=== PATIENT | female | born 1960 | race Caucasian/White ===

== ENCOUNTER → 2016-07-03 | Outpatient (CLI) | payer BC | END | disposition home or self-care (01) | LOC: C.PAPS 11:12 | PROVIDERS: ATTEND Family Medicine | DX: Z12.4 Encounter for screening for malignant neoplasm of cervix (principal) ==

== ENCOUNTER → 2016-09-11 | Outpatient (CLI) | payer BC ==
[2016-09-11 18:33] LABS: BASO % 0.5 %; BASO ABS # 0.02 K/uL (0-0.2); COMPLETE YES; EOS % 1.2 %; HEMATOCRIT 40.4 % (37-47); IG% 0.2 %; LYMPH % 29.8 %; LYMPH ABS # 1.28 K/uL (1.2-3.4); MEAN CELL VOLUME 89.6 fL (80-100); MEAN CORPUSCULAR HEMOGLOBIN 30.2 pg (25-34); MEAN CORPUSCULAR HGB CONC 33.7 g/dl (32-36); MEAN PLATELET VOLUME 10.7 fL (7.4-10.4); MONO % 8.9 %; NEUT % 59.4 %; PLATELET COUNT 177 K/uL (130-400); RED BLOOD COUNT 4.51 M/uL (4.2-5.4); WHITE BLOOD COUNT 4.29 K/uL (4.8-10.8)
[2016-09-11 18:46] LABS: ALB/GLOB RATIO 1.4 (0.9-2); ALT/SGPT 31 U/L (12-78); AST/SGOT 18 U/L (15-37); BLOOD UREA NITROGEN 21 mg/dl (7-18); BUN/CREATININE RATIO 21.8 (10-20); CARBON DIOXIDE 27 mmol/L (21-32); CHLORIDE 107 mmol/L (98-107); CREATININE 0.97 mg/dl (0.60-1.20); GLUCOSE 83 mg/dl (70-99); POTASSIUM 4.1 mmol/L (3.5-5.1); SODIUM 142 mmol/L (136-145)
[2016-09-11 18:57] LABS: ALKALINE PHOSPHATASE 52 U/L (45-117); C-REACTIVE PROTEIN < 0.29 mg/dl (0-0.29); RHEUMATOID FACTOR < 10.0 U/mL (0-15)
[2016-09-11 19:10] LABS: LYME DISEASE AB IGM NEG (NEG)
[2016-09-11 19:13] LABS: LYME DISEASE AB IGG NEG (NEG)
== END | disposition home or self-care (01) ==
LOC: C.LABSPEC 17:07
PROVIDERS: ATTEND Family Medicine
DX: R53.83 Other fatigue (principal); R53.1 Weakness; R42 Dizziness and giddiness; M25.50 Pain in unspecified joint

== ENCOUNTER → 2016-10-09 | Outpatient (CLI) | payer BC ==
[~2016-10-09] MED LIST: GADAVIST IV PRN
--- NOTE | 2016-10-09 16:01 | DIAGNOSTIC IMAGING REPORT ---
BRAIN COMBO CLINICAL HISTORY: DIZZINESS, Weakness, unspecified VISUAL DISTURBANCE COMPARISON STUDY: No previous studies for comparison. TECHNIQUE: Utilizing a 1.5 Peyton magnet and dedicated coil, multiplanar, multiecho imaging of the brain was performed pre and postcontrast administration. IV administration of 7.5 mL of Gadavist contrast was uneventful. FINDINGS: Diffusion-weighted images show no acute ischemic process. Coronal FLAIR images demonstrate a focus of increased signal within the right optic radiations as well as several smaller periventricular foci of increased signal in the prefrontal regions. Diagnostic considerations include chronic small vessel change versus a demyelinating disorder. Postcontrast images are negative for an enhancing lesion. Sella and parasellar regions are unremarkable. IMPRESSION: 1. Nonspecific foci of increased signal within the right optic radiations and to a lesser extent the bilateral frontal regions 2.. Diagnostic considerations include chronic small vessel change versus late onset demyelinating disorder. 3. No acute ischemic process. No abnormal postcontrast enhancement. The above report was generated using voice recognition software. It may contain grammatical, syntax or spelling errors. Electronically signed by: Hernan Ardon M.D. 10/09/2016 4:00 PM Dictated Date/Time: 10/09/2016 3:56 PM
== END | disposition home or self-care (01) ==
LOC: C.MRI 14:44
PROVIDERS: ATTEND Family Medicine
DX: R42 Dizziness and giddiness (principal); R53.1 Weakness; H53.9 Unspecified visual disturbance

== ENCOUNTER → 2016-12-04 | Outpatient (CLI) | payer BC ==
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
== END | disposition home or self-care (01) ==
LOC: C.MRI 18:19
PROVIDERS: ATTEND Psychiatry & Neurology Neurology
DX: G37.9 Demyelinating disease of central nervous system, unspecified (principal); M48.02 Spinal stenosis, cervical region; M25.78 Osteophyte, vertebrae; M43.12 Spondylolisthesis, cervical region

== ENCOUNTER → 2017-07-24 | Outpatient (CLI) | payer OTHER ==
--- NOTE | 2017-07-24 15:54 | DIAGNOSTIC IMAGING REPORT ---
L-SPINE MIN 4 VIEWS ROUTINE CLINICAL HISTORY: Weakness. COMPARISON: None FINDINGS: Alignment of the lumbar spine is anatomic. No fracture or suspicious lesion is identified. Mild multilevel disc space narrowing is noted. There is moderate facet arthrosis. IMPRESSION: 1. No lumbar spine fracture or subluxation. 2. Moderate multilevel facet arthrosis and degenerative disc disease. Electronically signed by: Efrain Jameson M.D. 07/24/2017 3:53 PM Dictated Date/Time: 07/24/2017 3:52 PM
--- NOTE | 2017-07-24 16:12 | DIAGNOSTIC IMAGING REPORT ---
CHEST 2 VIEWS ROUTINE CLINICAL HISTORY: 57 years-old Female presenting with WEAKNESS, SOB. TECHNIQUE: PA and lateral views of the chest were obtained. COMPARISON: 01/03/2017. FINDINGS: Cardiomediastinal silhouette normal. 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 No other focal opacity. No pleural effusion or pneumothorax. Osseous structures normal. Upper abdomen normal. IMPRESSION: 1. No acute cardiopulmonary disease. 2. Old granulomatous disease. Electronically signed by: Wilfrido Rosado M.D. 07/24/2017 4:11 PM Dictated Date/Time: 07/24/2017 4:10 PM
== END | disposition home or self-care (01) ==
LOC: C.RAD 15:21
PROVIDERS: ATTEND Family Medicine
DX: R53.1 Weakness (principal); R06.02 Shortness of breath; D71 Functional disorders of polymorphonuclear neutrophils; M51.36 Other intervertebral disc degeneration, lumbar region

== ENCOUNTER 2017-07-28 03:57 | Emergency (ER) | payer OTHER ==
[~2017-07-28] VITALS: Ht 165.1 cm; Wt 86.5 kg
[2017-07-28 04:03] VITALS: TEMP 37; Ht 165.1 cm; Wt 86.5 kg
[2017-07-28] MEDS ORDERED: HYDROCODONE/ACETAMIN 5/325MG TAB PO ONE (04:30)
[2017-07-28] MEDS ORDERED: HYDR-5688 PO (05:08)
[2017-07-28] MEDS ORDERED: NORCO 5/325MG HOME PACK PO ONE (05:15)
[2017-07-28 05:31] VITALS: BP 129/65; PULSE 67; O2SAT 97
--- NOTE | 2017-07-28 08:02 | DIAGNOSTIC IMAGING REPORT ---
LEFT ANKLE 3 VIEWS HISTORY: Left ankle injury COMPARISON: None. FINDINGS: There is an oblique fracture within the distal left fibula which demonstrates up to 3 mm of lateral displacement. Lateral soft tissue swelling. No dislocation within the left ankle. No radiopaque foreign bodies. IMPRESSION: Slightly displaced distal left fibular fracture. Electronically signed by: Fredi Metz M.D. 07/28/2017 8:01 AM Dictated Date/Time: 07/28/2017 8:00 AM
--- NOTE | 2017-07-28 08:04 | DIAGNOSTIC IMAGING REPORT ---
LEFT KNEE 3 VIEWS HISTORY: fall. left knee injury COMPARISON: None. FINDINGS: There is no fracture or dislocation. Moderate to severe cartilage space narrowing within the medial compartment of the left knee with small marginal osteophytes. This is consistent with osteoarthritis. Mild soft tissue swelling within the lateral aspect of the knee. Small left knee effusion. No radiopaque foreign bodies. IMPRESSION: 1. No fracture or dislocation within the left knee. 2. Small left knee effusion. Electronically signed by: Fredi Metz M.D. 07/28/2017 8:03 AM Dictated Date/Time: 07/28/2017 8:02 AM
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
== END 2017-07-28 05:33 | disposition home or self-care (01) ==
LOC: C.EDB 03:58
DX: S82.832A Other fracture of upper and lower end of left fibula, initial encounter for closed fracture (principal); W01.10XA Fall on same level from slipping, tripping and stumbling with subsequent striking against unspecified object, initial encounter; Z87.891 Personal history of nicotine dependence

== ENCOUNTER → 2017-10-09 | Outpatient (CLI) | payer OTHER ==
[~2017-10-09] MED LIST changes: +HYDR-5688 PO
--- NOTE | 2017-10-09 16:17 | DIAGNOSTIC IMAGING REPORT ---
ADDENDUM Nodular thickening along the dura of the left parietal region demonstrates focal enhancement (series 10 image 21). This lesion measures 8 mm. This is extra-axial and may represent a small meningioma. Attention on follow-up. This is not changed from prior exam. Electronically signed by: Wilfrido Rosado M.D. 10/09/2017 4:21 PM Dictated Date/Time: 10/09/2017 4:20 PM ORIGINAL REPORT BRAIN COMBO FOR MS CLINICAL HISTORY: 57 years-old Female presenting with G37.9 Demyelinating [id number]. TECHNIQUE: Multisequence, multiplanar MR imaging of the brain was performed before and after the administration of intravenous contrast. IV contrast: 9 mL of Gadavist. COMPARISON: 10/09/2016. FINDINGS: Localizer images: Unremarkable. Ventricles and sulci normal in size. Redemonstration of multiple T2/FLAIR hyperintense lesions in the subcortical white matter. One of these lesions is new from prior exam located within the right frontal lobe (series 7 image 7). This new lesion does not demonstrate restricted diffusion or enhancement. The remaining lesions are unchanged in size and appearance. No mass effect or midline shift. No restricted diffusion to suggest acute ischemia. No hemorrhage. No extra-axial fluid collection. T2 skull base flow voids preserved. No abnormal parenchymal enhancement. Bone marrow signal intensity within the calvarium within normal limits. IMPRESSION: 1. Interval development of a new white matter lesion in the right frontal lobe. This is not demonstrate restricted diffusion or enhancement to suggest active demyelination. Remaining previously noted white matter lesions are unchanged from the prior exam. This appearance is nonspecific but could be compatible with the given history of demyelinating disease. 2. No acute intracranial pathology. Electronically signed by: Wilfrido Rosado M.D. 10/09/2017 4:16 PM Dictated Date/Time: 10/09/2017 4:08 PM
== END | disposition home or self-care (01) ==
LOC: C.MRI 14:31
PROVIDERS: ATTEND Psychiatry & Neurology Neurology
DX: G37.9 Demyelinating disease of central nervous system, unspecified (principal); G93.89 Other specified disorders of brain

== ENCOUNTER 2024-03-13 23:19 | Inpatient (IN) ==
[2024-03-14] MEDS: ONDANSETRON INJ 2 MG/ML 2 ML VIAL IV STA (00:01)
[2024-03-14 00:03] LABS: Basophils # (auto) 0.03 K/uL (0.00-0.20); Basophils % (auto) 0.4 %; Eosinophils # (auto) 0.05 K/uL (0.00-0.50); Eosinophils % (auto) 0.6 %; Hematocrit (blood only) 41.3 % (37.0-47.0); Hemoglobin 13.8 g/dl (12.0-16.0); Immature Granulocytes # (auto) 0.04 K/uL (0.01-0.20); Immature Granulocytes % (auto) 0.5 %; Lymphocytes # (auto) 0.87 K/uL (1.20-3.40); Lymphocytes % (auto) 10.3 %; Mean Corpuscular Hemoglobin 29.6 pg (25.0-34.0); Mean Corpuscular Hgb Conc 33.4 g/dL (32.0-36.0); Mean Corpuscular Volume 88.6 fL (80.0-100.0); Mean Platelet Volume 10.1 fL (9.4-12.4); Monocytes # (auto) 0.81 K/uL (0.11-0.59); Monocytes % (auto) 9.6 %; Neutrophils # (auto) 6.63 K/uL (1.40-6.50); Neutrophils % (auto) 78.6 %; Platelet Count 192 K/uL (130-400); RDW Coefficient of Variation 14.2 % (11.5-14.5); RDW Standard Deviation 45.7 fL (36.4-46.3); Red Blood Count 4.66 M/uL (4.20-5.40); White Blood Count 8.43 K/ul (4.8-10.8)
[2024-03-14 00:12] LABS: Alanine Aminotransferase 27 U/L (7-52); Albumin Globulin Ratio 1.6 (0.9-2); Albumin Level 4.5 gm/dl (3.4-5.0); Alkaline Phosphatase 63 U/L (34-104); Anion Gap 8 (3-11); Aspartate Aminotransferase 24 U/L (13-39); BUN Creatinine Ratio 24.7 (10-20); Bilirubin,Total 0.5 mg/dl (0.2-1.0); Blood Urea Nitrogen 24 mg/dl (6-23); Calcium 9.4 mg/dl (8.6-10.3); Carbon Dioxide 27 mmol/L (21-32); Chloride 102 mmol/L (98-107); Globulin 2.9 gm/dl (2.5-4.0); Glucose 121 mg/dl (70-99(Fasting)); Lipase 18 U/L (11-82); Sodium 137 mmol/L (136-145); Total Protein 7.4 gm/dl (6.0-8.3)
[2024-03-14 00:19] LABS: Troponin I High Sensitivity 4.6 pg/ml (0-14)
--- NOTE | 2024-03-14 00:50 | Emergency Department Note ---
Impression & Plan Right-sided chest pain, Pleural effusion on right, Pneumonia ED Provider Note CHIEF COMPLAINT: Chest pain HISTORY OF PRESENT ILLNESS: This 63-year-old female past medical history of hypertension, sleep apnea, demyelinating disorder, cerebrovascular disease, depression who presents to the emergency department with complaints of right upper quadrant abdominal pain through to the back. The patient states she was watching the [employer] football game at approximately 7 PM when the pain began. She states it hurts to move and take a deep breath. She does not feel nauseated. Patient does still have her gallbladder. She was eating chili for dinner this evening. REVIEW OF SYSTEMS: A review of systems was performed with positives and pertinent negatives listed in the history of present illness. 10 systems were reviewed and are otherwise negative. ALLERGIES: see below MEDICATIONS: see below PMH: see below SOCIAL HISTORY: see below DDx: Acute coronary syndrome, cholecystitis, pancreatitis, pulmonary embolus, pneumonia, pleural effusion among others. PHYSICAL EXAM: Vital signs reviewed. General: Well-appearing 63-year-old female, in no significant distress. HEENT: No scleral icterus, PERRLA, neck supple. Moist mucous membranes Cardiovascular: Regular rate and rhythm, no extra sounds. Pulmonary: Clear to auscultation bilaterally, normal work of breathing. Abdomen: Soft, tender to palpation of the right upper quadrant, mild guarding, no rebound nondistended, positive bowel sounds. Musculoskeletal: Atraumatic, no peripheral edema. Neurologic: Patient awake alert and oriented x 3, speech is clear Skin: Warm, dry, no rash EMERGENCY DEPARTMENT COURSE/MDM: This patient was evaluated and appeared to be in no significant distress. IV access was obtained and laboratory work was drawn. The patient was placed on the radiation monitor noted to be normal sinus rhythm. Patient was medicated with IV morphine 4 mg and IV Zofran 4 mg for her discomfort. Chest x-ray was performed and to my interpretation reveals a poor inspiratory effort with no obvious focal lung consolidation. Chest CT was performed due to an elevated D-dimer, this study reveals some groundglass opacities in the bilateral lower lung rm. There is a small right sided pleural effusion. Ultrasound of the right upper quadrant is negative. WBC is within normal limits however the patient's oxygen saturation on room air is 87%. She was placed on 2 L nasal cannula oxygen with improvement. Patient did require second dose of IV morphine due to discomfort. Patient has been medicated with 2 g of IV ceftriaxone and 500 mg of azithromycin. Respiratory bio fire panel is negative. Case has been discussed with the hospitalist, Dr. Pickering who was agreed to evaluate the patient for admission and further management. MONITORING: An order for cardiac monitoring was placed and the patient is noted to be in a normal sinus rhythm at 74 beats per minute. RADIOLOGY: Chest x-ray to my interpretation reveals poor inspiratory effort, no focal lung consolidation or failure otherwise. Chest CT: IMPRESSION: No evidence of pulmonary embolism Mild dilatation of pulmonary trunk ,bilateral main pulmonary artery up to subsegmental level with mild tortuosity - suggest possibility of pulmonary arterial hypertension. Mild diffuse ground-glass haze with superimposed smooth interlobular septal thickening are noted involving the dependent portion of both lower lobes- possibility of pulmonary congestion / could be due to insufficient inspiration. Mild right sided pleural effusion with passive subsegmental collapse of right lower lobe. Small calcified granuloma is noted in lingula. Ultrasound of the right upper quadrant: IMPRESSION: No evidence of cholelithiasis or cholecystitis. EKG: To my interpretation reveals a normal sinus rhythm at 72 bpm. Overall low voltage. QTc of 431. Normal ST segments. No PVC, no PAC. DISPOSITION: Home Past Med/Surg History Problem List (Updated 03/14/24 @ 07:05 by Loyda Oreilly MD) Pneumonia (Acute) Pleural effusion on right (Acute) Right-sided chest pain (Acute) Chest pain Tremor of left hand Abnormal vaginal bleeding in postmenopausal patient Encounter for pre-operative examination Calcified granuloma of lung (Acute) Cerebrovascular disease (Chronic) Depression (Chronic) Excessive daytime sleepiness (Acute) Menopause (Acute) Scarring of cervix (Acute) Snoring (Acute) Unrefreshed by sleep (Acute) History of varicose veins (Acute) Witnessed apneic spells (Acute) Fracture of distal end of left fibula (Acute) Anxiety (Chronic) Cervical disc disease (Chronic) follows with chiropractor Fatigue (Chronic) Meningioma (Chronic) benign brain meningioma - monitoring. Medical History Hypothyroidism Irregular heartbeat "an extra heartbeat" reason for carvedilol Hypertension Temporomandibular joint disorder BILAT CLICKS HAS NEVER LOCKED Varicose vein of leg with laser surgery treatment Depression with anxiety Urinary incontinence H/O urinary tract infection about twice yearly. no recent problems Rheumatic fever FOURTH GRADE-NO HEART ISSUES Arthritis Anemia History of endometrial biopsy Surgical History Hx of cataract extraction History of surgery on extremity BILAT LOWER LEGS-VEIN SURGERY History of colonoscopy H/O arthroscopic knee surgery RIGHT H/O wisdom tooth extraction History of salpingectomy For ectopic H/O dilation and curettage Family History Mother Family history of diabetes mellitus Grandmother (Paternal) Family history of diabetes mellitus Aunt Family history of diabetes mellitus Uncle Family history of diabetes mellitus Sister FHx: ovarian cancer, Onset Age: 53 Other Depression Diabetes Hypertension Myocardial infarction Denies family history of Ovarian cancer Prostate cancer Breast cancer Colorectal cancer Uterine cancer Social History Smoking Status: Former smoker Second Hand Exposure: No; Do You Dip or Chew Tobacco: No; Tobacco Cessation Education Requested by Patient: No Hx Alcohol Use: No Hx Substance Use: No Preferred Language: Chinese Communication Ability: Effective 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 Beliefs That Will Affect Care: None Current Living Situation: Spouse Other Information That Helps Us Care for You: No Feels Safe at Home: Yes Safety Concerns: Feels Safe At This Time Assistive Devices: Glasses Allergies Allergies Allergy/AdvReac Type Severity Reaction Status Date / Time lisinopril AdvReac Mild dry cough Verified 01/31/23 07:41 Home Meds Home Medications Medication Instructions Recorded Confirmed Rohan Mag Zinc Plus D3 1 tab PO DAILY 03/14/24 03/14/24 L.acidoph-L.rhamn-B.bifidum-B.long 1 tab PO DAILY 03/14/24 03/14/24 12.9 mg (2 billion cell) tabletDR bupropion HCl 300 mg 24 hr tablet, 300 mg PO DAILY 03/14/24 03/14/24 extended release carvedilol 3.125 mg tablet 3.125 mg PO BID 03/14/24 03/14/24 hydrochlorothiazide 12.5 mg capsule 12.5 mg PO DAILY 03/14/24 03/14/24 levothyroxine 50 mcg tablet 50 mcg PO DAILY 03/14/24 03/14/24 losartan 100 mg tablet 100 mg PO DAILY 03/14/24 03/14/24 oxybutynin chloride 10 mg 10 mg PO DAILY 03/14/24 03/14/24 tablet,extended release 24 hr Results & Data (ED) Vital Signs Vital Signs - 24 hr 03/13/24 23:20 03/13/24 23:21 03/13/24 23:27 Temperature 36.6 C Temperature Source Temporal Artery Scan Pulse Rate 81 Pulse Rate from SpO2 Sensor Pulse Rhythm Regular Respiratory Rate 16 Respiratory Effort / Characteristics Non-Labored Respiratory Depth Normal Blood Pressure 150/87 H Blood Pressure Mean 108 Pulse Oximetry 94 Oxygen Delivery Method Room Air Room Air Room Air Oxygen Flow Rate Sepsis Recent Fever Within 48 Hours No Sepsis New/Unexplained Change in Mental Status No Sepsis Action Taken by Nursing No Action Required Oxygen Flow Rate - Titration Pulse Oximetry Post Tiitration 03/13/24 23:33 03/13/24 23:35 03/14/24 01:06 Temperature Temperature Source Pulse Rate 74 70 Pulse Rate from SpO2 Sensor Pulse Rhythm Respiratory Rate 29 H Respiratory Effort / Characteristics Respiratory Depth Blood Pressure 151/82 H 123/74 Blood Pressure Mean 115 90 Pulse Oximetry Oxygen Delivery Method Oxygen Flow Rate Sepsis Recent Fever Within 48 Hours Sepsis New/Unexplained Change in Mental Status Sepsis Action Taken by Nursing Oxygen Flow Rate - Titration Pulse Oximetry Post Tiitration 03/14/24 02:27 03/14/24 03:09 03/14/24 03:30 Temperature Temperature Source Pulse Rate 85 70 72 Pulse Rate from SpO2 Sensor 81 71 70 Pulse Rhythm Respiratory Rate 24 18 16 Respiratory Effort / Characteristics Respiratory Depth Blood Pressure 136/73 131/75 130/69 Blood Pressure Mean 94 93 89 Pulse Oximetry 93 94 90 Oxygen Delivery Method Room Air Room Air Oxygen Flow Rate Sepsis Recent Fever Within 48 Hours Sepsis New/Unexplained Change in Mental Status Sepsis Action Taken by Nursing Oxygen Flow Rate - Titration Pulse Oximetry Post Tiitration 03/14/24 03:34 03/14/24 03:34 03/14/24 04:00 Temperature Temperature Source Pulse Rate 71 70 Pulse Rate from SpO2 Sensor 66 Pulse Rhythm Respiratory Rate 21 Respiratory Effort / Characteristics Respiratory Depth Blood Pressure 119/65 Blood Pressure Mean 83 Pulse Oximetry 86 L 90 Oxygen Delivery Method Room Air Nasal Cannula Nasal Cannula Oxygen Flow Rate 3 Sepsis Recent Fever Within 48 Hours Sepsis New/Unexplained Change in Mental Status Sepsis Action Taken by Nursing Oxygen Flow Rate - Titration 2 Pulse Oximetry Post Tiitration 92 03/14/24 04:30 Temperature Temperature Source Pulse Rate 73 Pulse Rate from SpO2 Sensor 73 Pulse Rhythm Respiratory Rate 22 Respiratory Effort / Characteristics Respiratory Depth Blood Pressure 111/64 Blood Pressure Mean 79 Pulse Oximetry 91 Oxygen Delivery Method Nasal Cannula Oxygen Flow Rate 3 Sepsis Recent Fever Within 48 Hours Sepsis New/Unexplained Change in Mental Status Sepsis Action Taken by Nursing Oxygen Flow Rate - Titration Pulse Oximetry Post Tiitration Home Medications Current Medication List: was personally reviewed by me Laboratory Data Attestation: I reviewed the patient's lab results. 03/13/24 23:42 03/13/24 23:42 Lab Results 03/13/24 03/14/24 03/14/24 Range/Units 23:42 02:22 02:23 WBC 8.43 (4.8-10.8) K/ul RBC 4.66 (4.20-5.40) M/uL Hgb 13.8 (12.0-16.0) g/dl Hct 41.3 (37.0-47.0) % MCV 88.6 (80.0-100.0) fL MCH 29.6 (25.0-34.0) pg MCHC 33.4 (32.0-36.0) g/dL RDW Std Deviation 45.7 (36.4-46.3) fL RDW Coeff of Alana 14.2 (11.5-14.5) % Plt Count 192 (130-400) K/uL MPV 10.1 (9.4-12.4) fL Immature Gran % (Auto) 0.5 % Neut % (Auto) 78.6 % Lymph % (Auto) 10.3 % [place] % (Auto) 9.6 % Eos % (Auto) 0.6 % Baso % (Auto) 0.4 % Neut # (Auto) 6.63 H (1.40-6.50) K/uL Lymph # (Auto) 0.87 L (1.20-3.40) K/uL [place] # (Auto) 0.81 H (0.11-0.59) K/uL Eos # (Auto) 0.05 (0.00-0.50) K/uL Baso # (Auto) 0.03 (0.00-0.20) K/uL Immature Gran # (Auto) 0.04 (0.01-0.20) K/uL D-Dimer 990 H* (0-500) ug/L FEU Sodium 137 (136-145) mmol/L Potassium 4.0 (3.5-5.1) mmol/L Chloride 102 (98-107) mmol/L Carbon Dioxide 27 (21-32) mmol/L Anion Gap 8 (3-11) BUN 24 H (6-23) mg/dl Creatinine 0.97 (0.6-1.2) mg/dl Est Cr Clr Drug Dosing Not Reportable eGFR 65.66 BUN/Creatinine Ratio 24.7 H (10-20) Glucose 121 H (70-99(Fasting)) mg/dl Calcium 9.4 (8.6-10.3) mg/dl Total Bilirubin 0.5 (0.2-1.0) mg/dl AST 24 (13-39) U/L ALT 27 (7-52) U/L Alkaline Phosphatase 63 (34-104) U/L Troponin I High Sens 4.6 5.3 (0-14) pg/ml Total Protein 7.4 (6.0-8.3) gm/dl Albumin 4.5 (3.4-5.0) gm/dl Globulin 2.9 (2.5-4.0) gm/dl Albumin/Globulin Ratio 1.6 (0.9-2) Lipase 18 (11-82) U/L Adenovirus (PCR) Not Detected (NotDetected) B. pertussis DNA (PCR) Not Detected (NotDetected) B.parapertussis DNA PCR Not Detected (NotDetected) C. pneumoniae DNA (PCR) Not Detected (NotDetected) Coronavirus OC43 (PCR) Not Detected (NotDetected) Coronavirus HKU1 (PCR) Not Detected (NotDetected) Coronavirus 229E (PCR) Not Detected (NotDetected) SARS-CoV-2 (PCR) Not Detected (NotDetected) Coronavirus NL63 (PCR) Not Detected (NotDetected) Human Metapneumovir PCR Not Detected (NotDetected) Influenza Type A (PCR) Not Detected (NotDetected) Influenza Type B (PCR) Not Detected (NotDetected) M. pneumoniae (PCR) Not Detected (NotDetected) Parainfluenza 1 (PCR) Not Detected (NotDetected) Parainfluenza 2 (PCR) Not Detected (NotDetected) Parainfluenza 3 (PCR) Not Detected (NotDetected) Parainfluenza 4 (PCR) Not Detected (NotDetected) RSV (PCR) Not Detected (NotDetected) Entero/Rhino (PCR) Not Detected (NotDetected) Administered Medications Levothyroxine Sodium (Levothyroxine Sodium 50 Mcg Tablet) 50 mcg PO DAILYBB COOKIE Stop: 04/13/24 06:29 Last Admin: 03/14/24 06:45 Dose: 50 mcg Documented By: JOSE Discontinued Medications Aspirin (Aspirin Chew 324 Mg) 324 mg PO NOW STA Stop: 03/13/24 23:28 Last Admin: 03/14/24 03:26 Dose: Not Given Documented By: BUD Azithromycin (Azithromycin 250 Mg Tab) 500 mg PO NOW ONE Stop: 03/14/24 01:57 Last Admin: 03/14/24 02:17 Dose: 500 mg Documented By: KRISTA Sodium Chloride (Nss) 1,000 mls @ 125 mls/hr IV .Q8H OCOKIE Stop: 03/14/24 23:44 Last Admin: 03/14/24 01:04 Dose: 125 mls/hr Documented By: KRISTA Ceftriaxone Sodium (Rocephin) 2,000 mg in 50 mls @ 100 mls/hr IV NOW STA Stop: 03/14/24 02:25 Last Infusion: 03/14/24 02:50 Dose: Infused Documented By: Admin: 03/14/24 02:17 Dose: 100 mls/hr Documented By: KRISTA Ioversol (Optiray 320 125ml) 118 ml IV ONCE ONE Stop: 03/14/24 01:28 Last Admin: 03/14/24 01:28 Dose: 118 ml Documented By: BRIELLE Ketorolac Tromethamine (Ketorolac Tromethamine 15 Mg/Ml Vial) 10 mg IV NOW ONE Stop: 03/14/24 02:33 Last Admin: 03/14/24 03:38 Dose: 10 mg Documented By: BUD Morphine Sulfate (Morphine Sulfate 4 Mg/Ml 1 Ml Carp\\Vial) 4 mg IV NOW STA Stop: 03/13/24 23:57 Last Admin: 03/14/24 00:00 Dose: 4 mg Documented By: KRISTA Morphine Sulfate (Morphine Sulfate 4 Mg/Ml 1 Ml Carp\\Vial) 4 mg IV NOW STA Stop: 03/14/24 00:52 Last Admin: 03/14/24 01:05 Dose: 4 mg Documented By: KRISTA Ondansetron HCl (Ondansetron Inj 2 Mg/Ml 2 Ml Vial) 4 mg IV NOW STA Stop: 03/13/24 23:57 Last Admin: 03/14/24 00:01 Dose: 4 mg Documented By: KRISTA Imaging Data Radiologist's Impression: Chest X-Ray 03/13/24 23:27 Exam(s): XR CXR 1 VIEW EXAM: XR Chest, 1 View CLINICAL HISTORY: Reason for exam: Chest pain, nonspecific. TECHNIQUE: Frontal view of the chest. COMPARISON: Prior chest x-ray from July 24, 2017. FINDINGS: Lungs: There is mild to moderate peribronchial thickening of the central bronchi with increased interstitial opacities. No consolidation. There are low lung volumes limiting evaluation of the lung bases. There is a 10 mm granuloma in the left lower lobe. Pleural space: Unremarkable. No pneumothorax. Heart: Unremarkable. No cardiomegaly. Mediastinum: Unremarkable. Normal mediastinal contour. Bones/joints: Unremarkable. No acute fracture. IMPRESSION: Findings concerning bronchitis, which may be of infectious or inflammatory allergies. No consolidation or pleural effusion. Limited evaluation of the lung bases. Electronically signed by: Donna Harry MD 03/14/24 01:46 AM Gallbladder Ultrasound 03/13/24 23:39 EXAM: US gallbladder CLINICAL HISTORY: HX: NO PREV. RUQ PAIN. NAUSEA. TECH NOTES: EXAM LIMITED BY INCREASED MIDLINE BOWEL GAS, MOST OF EVAL INTERCOSTAL. PANC: NONVIS DUE TO OVERLYING BOWEL. LIVER: 15.8 cm. WNL SEEN. GB: WALL 1.6 mm. WNL SEEN. PT MEDICATED FOR PAIN, UNABLE TO ASSESS SANDOVAL''S SIGN. CBD: 3.8 mm. RT KID: NO HYDRO. TECHNIQUE: Limited ultrasound of the liver and gallbladder was performed in greyscale and Doppler. Multiple images were obtained in transverse and longitudinal planes. COMPARISON: No prior studies are available for comparison. FINDINGS: Liver: Liver size: 15.8 cm in length. Within normal limits as seen. The liver appears normal in size with homogeneous echotexture. No evidence of focal lesions, cysts, or masses. Hepatic vasculature appears normal. Gallbladder: Gallbladder wall thickness: 1.6 mm, within normal limits as seen. The gallbladder is visualized and appears normal in size and shape. No gallstones, wall thickening, or pericholecystic fluid noted. Unable to assess Sandoval's sign as the patient was medicated for pain. Biliary Tree: Common bile duct diameter: 3.8 mm, within normal limits and not dilated. No evidence of choledocholithiasis or biliary obstruction. Pancreas: Not visualized due to overlying bowel gas. Right Kidney: No evidence of hydronephrosis. IMPRESSION: No evidence of cholelithiasis or cholecystitis. Electronically signed by Melisa Oglesby 03-14-2024 02:45 AM Chest CTA 03/14/24 01:12 EXAM: CT angio chest PE protocol CLINICAL HISTORY: PE 118 CC OPTI 320 TECHNIQUE: Contiguous axial images were obtained from the neck base through the upper abdomen following intravenous administration of iodinated contrast material. Angiographic images were processed, 3D MIP images were acquired for interpretation. If IV contrast material had not been administered, the likelihood of detecting abnormalities relevant to the patient's condition would have been substantially decreased. Coronal and sagittal 3-D MIPs were likewise performed and indicated to increase the sensitivity of detectin diffuse clinically relevant pathology. CT scan was performed according to ALARA (as low as reasonable achievable). COMPARISON: None. FINDINGS: Mild dilatation of pulmonary trunk ,bilateral main pulmonary artery up to subsegmental level with mild tortuosity - suggest possibility of pulmonary arterial hypertension. Mild diffuse ground-glass haze with superimposed smooth interlobular septal thickening are noted involving the dependent portion of both lower lobes- possibility of pulmonary congestion / could be due to insufficient inspiration. Mild right sided pleural effusion with passive subsegmental collapse of right lower lobe. Small calcified granuloma is noted in lingula Adequate contrast bolus without evidence of pulmonary embolism. The central airways are patent. The heart, aorta, and pulmonary arteries are of normal size and configuration. There are no appreciable coronary artery and aortic atherosclerotic calcifications. No pericardial effusion is identified. The thyroid is unremarkable. No mediastinal, hilar, or axillary lymphadenopathy is noted. No suspicious lytic or sclerotic osseous lesions are identified. IMPRESSION: No evidence of pulmonary embolism Mild dilatation of pulmonary trunk ,bilateral main pulmonary artery up to subsegmental level with mild tortuosity - suggest possibility of pulmonary arterial hypertension. Mild diffuse ground-glass haze with superimposed smooth interlobular septal thickening are noted involving the dependent portion of both lower lobes- possibility of pulmonary congestion / could be due to insufficient inspiration. Mild right sided pleural effusion with passive subsegmental collapse of right lower lobe. Small calcified granuloma is noted in lingula. Electronically signed by Elan Cloud 03-14-2024 02:15 AM Discharge Plan Visit Data Chief Complaint: Chest Pain Stated Complaint: CHEST PAIN, SOB ED Provider: Loyda Oreilly Discharge Problem: Right-sided chest pain, Pleural effusion on right, Pneumonia Patient Disposition: Admitted As Inpatient Discharge Instructions Interventions: ED Discharge Assessment Last Done: 03/14/24 05:14 Discharge Problem: Pneumonia Qualifiers: Pneumonia type: due to unspecified organism Laterality: bilateral Lung location: lower lobe of lung Qualified Code(s): J18.9 - Pneumonia, unspecified organism
[2024-03-14 00:56] LABS: D Dimer 990 ug/L FEU (0-500)
[2024-03-14] MEDS: SODIUM CHLORIDE 0.9% 1,000 ML IV SCH (01:04)
[2024-03-14] MEDS: MoRPHine SULFATE 4 MG/ML 1 ML CARP\\VIAL IV STA ×2 (01:05)
[2024-03-14] MEDS: OPTIRAY 320 125ml IV ONE (01:28)
--- NOTE | 2024-03-14 01:47 | XRay Report ---
Exam(s): XR CXR 1 VIEW EXAM: XR Chest, 1 View CLINICAL HISTORY: Reason for exam: Chest pain, nonspecific. TECHNIQUE: Frontal view of the chest. COMPARISON: Prior chest x-ray from July 24, 2017. FINDINGS: Lungs: There is mild to moderate peribronchial thickening of the central bronchi with increased interstitial opacities. No consolidation. There are low lung volumes limiting evaluation of the lung bases. There is a 10 mm granuloma in the left lower lobe. Pleural space: Unremarkable. No pneumothorax. Heart: Unremarkable. No cardiomegaly. Mediastinum: Unremarkable. Normal mediastinal contour. Bones/joints: Unremarkable. No acute fracture. IMPRESSION: Findings concerning bronchitis, which may be of infectious or inflammatory allergies. No consolidation or pleural effusion. Limited evaluation of the lung bases. Electronically signed by: Donna Harry MD 03/14/24 01:46 AM
--- NOTE | 2024-03-14 02:15 | CT Scan Report ---
EXAM: CT angio chest PE protocol CLINICAL HISTORY: PE 118 CC OPTI 320 TECHNIQUE: Contiguous axial images were obtained from the neck base through the upper abdomen following intravenous administration of iodinated contrast material. Angiographic images were processed, 3D MIP images were acquired for interpretation. If IV contrast material had not been administered, the likelihood of detecting abnormalities relevant to the patient's condition would have been substantially decreased. Coronal and sagittal 3-D MIPs were likewise performed and indicated to increase the sensitivity of detectin diffuse clinically relevant pathology. CT scan was performed according to ALARA (as low as reasonable achievable). COMPARISON: None. FINDINGS: Mild dilatation of pulmonary trunk ,bilateral main pulmonary artery up to subsegmental level with mild tortuosity - suggest possibility of pulmonary arterial hypertension. Mild diffuse ground-glass haze with superimposed smooth interlobular septal thickening are noted involving the dependent portion of both lower lobes- possibility of pulmonary congestion / could be due to insufficient inspiration. Mild right sided pleural effusion with passive subsegmental collapse of right lower lobe. Small calcified granuloma is noted in lingula Adequate contrast bolus without evidence of pulmonary embolism. The central airways are patent. The heart, aorta, and pulmonary arteries are of normal size and configuration. There are no appreciable coronary artery and aortic atherosclerotic calcifications. No pericardial effusion is identified. The thyroid is unremarkable. No mediastinal, hilar, or axillary lymphadenopathy is noted. No suspicious lytic or sclerotic osseous lesions are identified. IMPRESSION: No evidence of pulmonary embolism Mild dilatation of pulmonary trunk ,bilateral main pulmonary artery up to subsegmental level with mild tortuosity - suggest possibility of pulmonary arterial hypertension. Mild diffuse ground-glass haze with superimposed smooth interlobular septal thickening are noted involving the dependent portion of both lower lobes- possibility of pulmonary congestion / could be due to insufficient inspiration. Mild right sided pleural effusion with passive subsegmental collapse of right lower lobe. Small calcified granuloma is noted in lingula. Electronically signed by Elan Cloud 03-14-2024 02:15 AM
[2024-03-14] MEDS: cefTRIAXone SODIUM 2,000 MG/50 ML BAG IV STA (02:17)
[2024-03-14] MEDS: AZITHROMYCIN 250 MG TAB PO ONE (02:17)
--- NOTE | 2024-03-14 02:46 | Ultrasound Report ---
EXAM: US gallbladder CLINICAL HISTORY: HX: NO PREV. RUQ PAIN. NAUSEA. TECH NOTES: EXAM LIMITED BY INCREASED MIDLINE BOWEL GAS, MOST OF EVAL INTERCOSTAL. PANC: NONVIS DUE TO OVERLYING BOWEL. LIVER: 15.8 cm. WNL SEEN. GB: WALL 1.6 mm. WNL SEEN. PT MEDICATED FOR PAIN, UNABLE TO ASSESS SANDOVAL''S SIGN. CBD: 3.8 mm. RT KID: NO HYDRO. TECHNIQUE: Limited ultrasound of the liver and gallbladder was performed in greyscale and Doppler. Multiple images were obtained in transverse and longitudinal planes. COMPARISON: No prior studies are available for comparison. FINDINGS: Liver: Liver size: 15.8 cm in length. Within normal limits as seen. The liver appears normal in size with homogeneous echotexture. No evidence of focal lesions, cysts, or masses. Hepatic vasculature appears normal. Gallbladder: Gallbladder wall thickness: 1.6 mm, within normal limits as seen. The gallbladder is visualized and appears normal in size and shape. No gallstones, wall thickening, or pericholecystic fluid noted. Unable to assess Sandoval's sign as the patient was medicated for pain. Biliary Tree: Common bile duct diameter: 3.8 mm, within normal limits and not dilated. No evidence of choledocholithiasis or biliary obstruction. Pancreas: Not visualized due to overlying bowel gas. Right Kidney: No evidence of hydronephrosis. IMPRESSION: No evidence of cholelithiasis or cholecystitis. Electronically signed by Melisa Oglesby 03-14-2024 02:45 AM
[2024-03-14 03:18] LABS: Adenovirus PCR Not Detected (NotDetected); Bordetella parapertussis PCR Not Detected (NotDetected); Bordetella pertussis PCR Not Detected (NotDetected); Chlamydia pneumoniae PCR Not Detected (NotDetected); Coronavirus 229E PCR Not Detected (NotDetected); Coronavirus CoV-2 (COVID19)PCR Not Detected (NotDetected); Coronavirus HKU1 PCR Not Detected (NotDetected); Coronavirus NL63 PCR Not Detected (NotDetected); Coronavirus OC43PCR Not Detected (NotDetected); Human Metapneumovirus PCR Not Detected (NotDetected); Influenza A PCR Not Detected (NotDetected); Influenza B PCR Not Detected (NotDetected); Mycoplasma pneumoniae PCR Not Detected (NotDetected); Parainfluenza Virus 1 PCR Not Detected (NotDetected); Parainfluenza Virus 2 PCR Not Detected (NotDetected); Parainfluenza Virus 3 PCR Not Detected (NotDetected); Parainfluenza Virus 4 PCR Not Detected (NotDetected); Respiratory Syncytial VirusPCR Not Detected (NotDetected); Rhinovirus/Enterovirus PCR Not Detected (NotDetected)
[2024-03-14] MEDS: ASPIRIN CHEW 324 MG PO STA (03:26)
[2024-03-14] MEDS: KETOROLAC TROMETHAMINE 15 MG/ML VIAL IV ONE (03:38)
--- NOTE | 2024-03-14 05:37 | History & Physical Report ---
Date of Service March 14, 2024 Assessment & Plan (1) Chest pain: Plan: 63-year-old female with past med history significant for hypothyroidism, sleep apnea, hypertension, PVCs, obesity, overactive bladder, osteoarthritis, demyelinating disease of central nervous system, meningioma, depression presents with sudden onset of chest pain. Patient states she was watching TV when she noticed sharp pain in the middle of the chest radiating across the right side of the chest into the back. Pain is on and off. Was nauseous. Denies any fevers. No cough. No sweating. Has some dizziness. No headache, no runny nose. No sore throat. No earache. No abdominal pain. Normal bowel and bladder movements. Patient states she is around the grandchild who has been sick with respiratory and stomach flu. In the ER patient was saturating 86% on room air and requiring 3 L oxygen Chest pain Hypoxia requiring 3liters oxygen 2 sets of troponin negative. EKG unremarkable Respiratory BioFire negative CTA chest. No PE. Mild diffuse groundglass haze with superimposed smooth interlobular septal thickening noted involving the dependent portion of both lower lobes possible to pulmonary congestion/icould be insufficent inspiration.. Mild right sided pleural effusion with passive supplemental collapse of the right lower lobe. Possible pneumonia. chf? Empirically started on Rocephin and p.o. azithromycin Follow-up procalcitonin levels Follow serial cardiac enzymes and echo Cardiac consult Close monitor Sleep apnea On CPAP nightly Hypertension On Coreg's, losartan hydrochlorothiazide PVCs On Coreg Hypothyroidism On Synthyroid Overactive bladder On oxybutynin DVT prophylaxis SCDs for now Disposition Telemetry Full code. History of Present Illness Chief Complaint: Chest pain Primary Care Provider: Heather Wasserman MD 63-year-old female with past med history significant for hypothyroidism, sleep apnea, hypertension, PVCs, obesity, overactive bladder, osteoarthritis, demyelinating disease of central nervous system, meningioma, depression presents with sudden onset of chest pain. Patient states she was watching TV when she noticed sharp pain in the middle of the chest radiating across the right side of the chest into the back. Pain is on and off. Was nauseous. Denies any fevers. No cough. No sweating. Has some dizziness. No headache, no runny nose. No sore throat. No earache. No abdominal pain. Normal bowel and bladder movements. Patient states she is around the grandchild who has been sick with respiratory and stomach flu. In the ER patient was saturating 86% on room air and requiring 3 L oxygen Past medical history as mentioned above Past surgical history. Colonoscopy. Ectopic . Social history. . Former smoker. Socially smoker in 2 years. Alcohol occasionally. No drug use. Family history. Father had depression. Hypertension. Mother had diabetes. Heart failure. Hypertension. Sister had ovarian cancer. History of hypertension. Maternal grandfather had heart attack. Paternal grandfather had heart failure. Allergies Allergy/AdvReac Type Severity Reaction Status Date / Time lisinopril AdvReac Mild dry cough Verified 01/31/23 07:41 Home Medications Medication Instructions Recorded Confirmed Type Rohan Mag Zinc Plus D3 1 tab PO DAILY 03/14/24 03/14/24 History L.acidoph-L.rhamn-B.bifidum-B.long 1 tab PO DAILY 03/14/24 03/14/24 History 12.9 mg (2 billion cell) tabletDR bupropion HCl 300 mg 24 hr tablet, 300 mg PO DAILY 03/14/24 03/14/24 History extended release carvedilol 3.125 mg tablet 3.125 mg PO BID 03/14/24 03/14/24 History hydrochlorothiazide 12.5 mg capsule 12.5 mg PO DAILY 03/14/24 03/14/24 History levothyroxine 50 mcg tablet 50 mcg PO DAILY 03/14/24 03/14/24 History losartan 100 mg tablet 100 mg PO DAILY 03/14/24 03/14/24 History oxybutynin chloride 10 mg 10 mg PO DAILY 03/14/24 03/14/24 History tablet,extended release 24 hr Past Med/Surg History Problem List (Updated 03/14/24 @ 07:05 by Loyda Oreilly MD) Pneumonia (Acute) Pleural effusion on right (Acute) Right-sided chest pain (Acute) Chest pain Tremor of left hand Abnormal vaginal bleeding in postmenopausal patient Encounter for pre-operative examination Calcified granuloma of lung (Acute) Cerebrovascular disease (Chronic) Depression (Chronic) Excessive daytime sleepiness (Acute) Menopause (Acute) Scarring of cervix (Acute) Snoring (Acute) Unrefreshed by sleep (Acute) History of varicose veins (Acute) Witnessed apneic spells (Acute) Fracture of distal end of left fibula (Acute) Anxiety (Chronic) Cervical disc disease (Chronic) follows with chiropractor Fatigue (Chronic) Meningioma (Chronic) benign brain meningioma - monitoring. Medical History Hypothyroidism Irregular heartbeat "an extra heartbeat" reason for carvedilol Hypertension Temporomandibular joint disorder BILAT CLICKS HAS NEVER LOCKED Varicose vein of leg with laser surgery treatment Depression with anxiety Urinary incontinence H/O urinary tract infection about twice yearly. no recent problems Rheumatic fever FOURTH GRADE-NO HEART ISSUES Arthritis Anemia History of endometrial biopsy Surgical History Hx of cataract extraction History of surgery on extremity BILAT LOWER LEGS-VEIN SURGERY History of colonoscopy H/O arthroscopic knee surgery RIGHT H/O wisdom tooth extraction History of salpingectomy For ectopic H/O dilation and curettage Family History Mother Family history of diabetes mellitus Grandmother (Paternal) Family history of diabetes mellitus Aunt Family history of diabetes mellitus Uncle Family history of diabetes mellitus Sister FHx: ovarian cancer, Onset Age: 53 Other Depression Diabetes Hypertension Myocardial infarction Denies family history of Ovarian cancer Prostate cancer Breast cancer Colorectal cancer Uterine cancer Social History Smoking Status: Former smoker Second Hand Exposure: No; Do You Dip or Chew Tobacco: No; Tobacco Cessation Education Requested by Patient: No Hx Alcohol Use: No Hx Substance Use: No Preferred Language: Estonian Communication Ability: Effective Superintendent Drivers Required: No Beliefs That Will Affect Care: None Current Living Situation: Spouse Other Information That Helps Us Care for You: No Feels Safe at Home: Yes Safety Concerns: Feels Safe At This Time Assistive Devices: Glasses Review of Systems Review of Systems: All systems reviewed & are unremarkable except as noted in HPI & below Physical Exam 2 Physical Exam: General- Not in distress Head- atraumatic Eyes- PERRL. ENT- oropharynx clear Neck- supple, no JVD, Lungs- clear to auscultation mild bibasilar crackles, no wheezing Heart- regular rate and rhythm; no murmur, no gallop. Abdomen- normal bowel sounds, soft, nontender, no distension Extremities- no pretibial edema, no erythema seen Neuro- alert, oriented PERRL, no facial palsy; no dysarthria; moves extremities Results & Data Results & Data Vital Signs (Past 12 Hours) Vital Signs Temp Pulse Resp BP Pulse Ox O2 Del Method 03/14/24 03:34 71 03/14/24 03:34 86 L Room Air, Nasal Cannula 03/14/24 03:30 72 16 130/69 90 Room Air 03/14/24 03:09 70 18 131/75 94 Room Air 03/14/24 02:27 85 24 136/73 93 03/14/24 01:06 70 29 H 123/74 03/13/24 23:35 151/82 H 03/13/24 23:33 74 03/13/24 23:27 Room Air 03/13/24 23:21 36.6 C 81 16 150/87 H 94 Room Air 03/13/24 23:20 Room Air Diagnostic Findings Laboratory Results WBC 8.43 K/ul (4.8-10.8) 03/13/24 23:42 RBC 4.66 M/uL (4.20-5.40) 03/13/24 23:42 Hgb 13.8 g/dl (12.0-16.0) 03/13/24 23:42 Hct 41.3 % (37.0-47.0) 03/13/24 23:42 MCV 88.6 fL (80.0-100.0) 03/13/24 23:42 MCH 29.6 pg (25.0-34.0) 03/13/24 23:42 MCHC 33.4 g/dL (32.0-36.0) 03/13/24 23:42 RDW Std Deviation 45.7 fL (36.4-46.3) 03/13/24 23:42 RDW Coeff of Alana 14.2 % (11.5-14.5) 03/13/24 23:42 Plt Count 192 K/uL (130-400) 03/13/24 23:42 MPV 10.1 fL (9.4-12.4) 03/13/24 23:42 Immature Gran % (Auto) 0.5 % 03/13/24 23:42 Neut % (Auto) 78.6 % 03/13/24 23:42 Lymph % (Auto) 10.3 % 03/13/24 23:42 Fleming % (Auto) 9.6 % 03/13/24 23:42 Eos % (Auto) 0.6 % 03/13/24 23:42 Baso % (Auto) 0.4 % 03/13/24 23:42 Neut # (Auto) 6.63 K/uL (1.40-6.50) H 03/13/24 23:42 Lymph # (Auto) 0.87 K/uL (1.20-3.40) L 03/13/24 23:42 Fleming # (Auto) 0.81 K/uL (0.11-0.59) H 03/13/24 23:42 Eos # (Auto) 0.05 K/uL (0.00-0.50) 03/13/24 23:42 Baso # (Auto) 0.03 K/uL (0.00-0.20) 03/13/24 23:42 Immature Gran # (Auto) 0.04 K/uL (0.01-0.20) 03/13/24 23:42 D-Dimer 990 ug/L FEU (0-500) H* 03/13/24 23:42 Sodium 137 mmol/L (136-145) 03/13/24 23:42 Potassium 4.0 mmol/L (3.5-5.1) 03/13/24 23:42 Chloride 102 mmol/L (98-107) 03/13/24 23:42 Carbon Dioxide 27 mmol/L (21-32) 03/13/24 23:42 Anion Gap 8 (3-11) 03/13/24 23:42 BUN 24 mg/dl (6-23) H 03/13/24 23:42 Creatinine 0.97 mg/dl (0.6-1.2) 03/13/24 23:42 Est Cr Clr Drug Dosing Not Reportable 03/13/24 23:42 eGFR 65.66 03/13/24 23:42 BUN/Creatinine Ratio 24.7 (10-20) H 03/13/24 23:42 Glucose 121 mg/dl (70-99(Fasting)) H 03/13/24 23:42 Calcium 9.4 mg/dl (8.6-10.3) 03/13/24 23:42 Total Bilirubin 0.5 mg/dl (0.2-1.0) 03/13/24 23:42 AST 24 U/L (13-39) 03/13/24 23:42 ALT 27 U/L (7-52) 03/13/24 23:42 Alkaline Phosphatase 63 U/L (34-104) 03/13/24 23:42 Troponin I High Sens 5.3 pg/ml (0-14) 03/14/24 02:22 Total Protein 7.4 gm/dl (6.0-8.3) 03/13/24 23:42 Albumin 4.5 gm/dl (3.4-5.0) 03/13/24 23:42 Globulin 2.9 gm/dl (2.5-4.0) 03/13/24 23:42 Albumin/Globulin Ratio 1.6 (0.9-2) 03/13/24 23:42 Lipase 18 U/L (11-82) 03/13/24 23:42 Adenovirus (PCR) Not Detected (NotDetected) 03/14/24 02:23 B. pertussis DNA (PCR) Not Detected (NotDetected) 03/14/24 02:23 B.parapertussis DNA PCR Not Detected (NotDetected) 03/14/24 02:23 C. pneumoniae DNA (PCR) Not Detected (NotDetected) 03/14/24 02:23 Coronavirus OC43 (PCR) Not Detected (NotDetected) 03/14/24 02:23 Coronavirus HKU1 (PCR) Not Detected (NotDetected) 03/14/24 02:23 Coronavirus 229E (PCR) Not Detected (NotDetected) 03/14/24 02:23 SARS-CoV-2 (PCR) Not Detected (NotDetected) 03/14/24 02:23 Coronavirus NL63 (PCR) Not Detected (NotDetected) 03/14/24 02:23 Human Metapneumovir PCR Not Detected (NotDetected) 03/14/24 02:23 Influenza Type A (PCR) Not Detected (NotDetected) 03/14/24 02:23 Influenza Type B (PCR) Not Detected (NotDetected) 03/14/24 02:23 M. pneumoniae (PCR) Not Detected (NotDetected) 03/14/24 02:23 Parainfluenza 1 (PCR) Not Detected (NotDetected) 03/14/24 02:23 Parainfluenza 2 (PCR) Not Detected (NotDetected) 03/14/24 02:23 Parainfluenza 3 (PCR) Not Detected (NotDetected) 03/14/24 02:23 Parainfluenza 4 (PCR) Not Detected (NotDetected) 03/14/24 02:23 RSV (PCR) Not Detected (NotDetected) 03/14/24 02:23 Entero/Rhino (PCR) Not Detected (NotDetected) 03/14/24 02:23 Impressions Chest X-Ray 03/13/24 23:27 Exam(s): XR CXR 1 VIEW EXAM: XR Chest, 1 View CLINICAL HISTORY: Reason for exam: Chest pain, nonspecific. TECHNIQUE: Frontal view of the chest. COMPARISON: Prior chest x-ray from July 24, 2017. FINDINGS: Lungs: There is mild to moderate peribronchial thickening of the central bronchi with increased interstitial opacities. No consolidation. There are low lung volumes limiting evaluation of the lung bases. There is a 10 mm granuloma in the left lower lobe. Pleural space: Unremarkable. No pneumothorax. Heart: Unremarkable. No cardiomegaly. Mediastinum: Unremarkable. Normal mediastinal contour. Bones/joints: Unremarkable. No acute fracture. IMPRESSION: Findings concerning bronchitis, which may be of infectious or inflammatory allergies. No consolidation or pleural effusion. Limited evaluation of the lung bases. Electronically signed by: Donna Harry MD 03/14/24 01:46 AM Gallbladder Ultrasound 03/13/24 23:39 EXAM: US gallbladder CLINICAL HISTORY: HX: NO PREV. RUQ PAIN. NAUSEA. TECH NOTES: EXAM LIMITED BY INCREASED MIDLINE BOWEL GAS, MOST OF EVAL INTERCOSTAL. PANC: NONVIS DUE TO OVERLYING BOWEL. LIVER: 15.8 cm. WNL SEEN. GB: WALL 1.6 mm. WNL SEEN. PT MEDICATED FOR PAIN, UNABLE TO ASSESS SANDOVAL''S SIGN. CBD: 3.8 mm. RT KID: NO HYDRO. TECHNIQUE: Limited ultrasound of the liver and gallbladder was performed in greyscale and Doppler. Multiple images were obtained in transverse and longitudinal planes. COMPARISON: No prior studies are available for comparison. FINDINGS: Liver: Liver size: 15.8 cm in length. Within normal limits as seen. The liver appears normal in size with homogeneous echotexture. No evidence of focal lesions, cysts, or masses. Hepatic vasculature appears normal. Gallbladder: Gallbladder wall thickness: 1.6 mm, within normal limits as seen. The gallbladder is visualized and appears normal in size and shape. No gallstones, wall thickening, or pericholecystic fluid noted. Unable to assess Sandoval's sign as the patient was medicated for pain. Biliary Tree: Common bile duct diameter: 3.8 mm, within normal limits and not dilated. No evidence of choledocholithiasis or biliary obstruction. Pancreas: Not visualized due to overlying bowel gas. Right Kidney: No evidence of hydronephrosis. IMPRESSION: No evidence of cholelithiasis or cholecystitis. Electronically signed by Melisa Oglesby 03-14-2024 02:45 AM Chest CTA 03/14/24 01:12 EXAM: CT angio chest PE protocol CLINICAL HISTORY: PE 118 CC OPTI 320 TECHNIQUE: Contiguous axial images were obtained from the neck base through the upper abdomen following intravenous administration of iodinated contrast material. Angiographic images were processed, 3D MIP images were acquired for interpretation. If IV contrast material had not been administered, the likelihood of detecting abnormalities relevant to the patient's condition would have been substantially decreased. Coronal and sagittal 3-D MIPs were likewise performed and indicated to increase the sensitivity of detectin diffuse clinically relevant pathology. CT scan was performed according to ALARA (as low as reasonable achievable). COMPARISON: None. FINDINGS: Mild dilatation of pulmonary trunk ,bilateral main pulmonary artery up to subsegmental level with mild tortuosity - suggest possibility of pulmonary arterial hypertension. Mild diffuse ground-glass haze with superimposed smooth interlobular septal thickening are noted involving the dependent portion of both lower lobes- possibility of pulmonary congestion / could be due to insufficient inspiration. Mild right sided pleural effusion with passive subsegmental collapse of right lower lobe. Small calcified granuloma is noted in lingula Adequate contrast bolus without evidence of pulmonary embolism. The central airways are patent. The heart, aorta, and pulmonary arteries are of normal size and configuration. There are no appreciable coronary artery and aortic atherosclerotic calcifications. No pericardial effusion is identified. The thyroid is unremarkable. No mediastinal, hilar, or axillary lymphadenopathy is noted. No suspicious lytic or sclerotic osseous lesions are identified. IMPRESSION: No evidence of pulmonary embolism Mild dilatation of pulmonary trunk ,bilateral main pulmonary artery up to subsegmental level with mild tortuosity - suggest possibility of pulmonary arterial hypertension. Mild diffuse ground-glass haze with superimposed smooth interlobular septal thickening are noted involving the dependent portion of both lower lobes- possibility of pulmonary congestion / could be due to insufficient inspiration. Mild right sided pleural effusion with passive subsegmental collapse of right lower lobe. Small calcified granuloma is noted in lingula. Electronically signed by Elan Cloud 03-14-2024 02:15 AM ECG Additional Comments: ECG normal sinus rhythm rate of 72. Nonspecific T wave abnormalities. QTc 431 Code Status & VTE Plan VTE Prophylaxis Plan VTE Prophylaxis will be ordered: Yes
[2024-03-14] MEDS ORDERED: ONDANSETRON INJ 2 MG/ML 2 ML VIAL IV PRN (05:43)
[2024-03-14] MEDS ORDERED: LEVALBUTEROL 1.25 MG/3 ML NEB NEB PRN (05:43)
[2024-03-14] MEDS ORDERED: ACETAMINOPHEN 325 MG TAB PO PRN (05:43)
[2024-03-14] MEDS ORDERED: NITROGLYCERIN SL 0.4 MG/TAB TAB SL PRN (05:43)
[2024-03-14] MEDS: LEVOTHYROXINE SODIUM 50 MCG TABLET PO SCH (06:45)
[2024-03-14 07:18] LABS: Basophils # (auto) 0.02 K/uL (0.00-0.20); Basophils % (auto) 0.3 %; Eosinophils # (auto) 0.01 K/uL (0.00-0.50); Eosinophils % (auto) 0.1 %; Hematocrit (blood only) 38.1 % (37.0-47.0); Hemoglobin 12.3 g/dl (12.0-16.0); Immature Granulocytes # (auto) 0.03 K/uL (0.01-0.20); Immature Granulocytes % (auto) 0.4 %; Lymphocytes # (auto) 1.02 K/uL (1.20-3.40); Lymphocytes % (auto) 14.1 %; Mean Corpuscular Hemoglobin 29.6 pg (25.0-34.0); Mean Corpuscular Hgb Conc 32.3 g/dL (32.0-36.0); Mean Corpuscular Volume 91.8 fL (80.0-100.0); Mean Platelet Volume 10.1 fL (9.4-12.4); Monocytes # (auto) 0.88 K/uL (0.11-0.59); Monocytes % (auto) 12.2 %; Neutrophils # (auto) 5.26 K/uL (1.40-6.50); Neutrophils % (auto) 72.9 %; Platelet Count 150 K/uL (130-400); RDW Coefficient of Variation 14.2 % (11.5-14.5); RDW Standard Deviation 48.5 fL (36.4-46.3); Red Blood Count 4.15 M/uL (4.20-5.40); White Blood Count 7.22 K/ul (4.8-10.8)
[2024-03-14 07:30] LABS: BUN Creatinine Ratio 22.8 (10-20); Calcium 8.4 mg/dl (8.6-10.3); Creatinine Clr Calc Pharmacy 72.3 ml/min; Magnesium 1.9 mg/dl (1.7-2.4); Potassium 4.1 mmol/L (3.5-5.1)
[2024-03-14 07:40] LABS: Troponin I High Sensitivity 10.1 pg/ml (0-14)
--- OUTSIDE RECORDS SUMMARY | 2024-03-14 07:55 | External Medical Summary ---
Author Name Unknown Address Unknown Organization [id number] - [address] [place] [id number] Laboratory Report Ordering Provider Test Date Status ENE PEREIRA 02/28/2024 13:50:31 Final Observation Date Value Abnormality Reference (Units ) Status BUN 02/28/2024 13:50:31 15 6-20 (mg/dL) Final Creatinine 02/28/2024 13:50:31 0.9 0.5-1.0 (mg/dL) Final Glomerular filtration rate/1.73 sq M.predicted [Volume Rate/Area] in Serum, Plasma or Blood by Creatinine-based formula (CKD-EPI) 02/28/2024 13:50:31 74 >=60 (mL/min) Final eGFR is calculated based on the CKD-EPI 2020 equation. Sodium 02/28/2024 13:50:31 144 135-146 (m mol/L) Final Potassium 02/28/2024 13:50:31 4.4 3.5-5.1 (m mol/L) Final Cl 02/28/2024 13:50:31 104 98-107 (mm ol/L) Final CO2 02/28/2024 13:50:31 31 22-32 (mmo l/L) Final Anion gap 02/28/2024 13:50:31 9 7-15 (mmol /L) Final Glucose 02/28/2024 13:50:31 79 70-120 (mg /dL) Final Calcium 02/28/2024 13:50:31 9.2 8.4-10.2 ( mg/dL) Final Performing Location [facility] B[facility] 57-[address] 0 - [address] [place] [id number]
--- OUTSIDE RECORDS SUMMARY | 2024-03-14 07:55 | External Medical Summary | Summary of Care ---
Author Name Unknown Organization [facility] [address] [address] Phone [phone] Care Team Providers Care Butcher Helper Name Role Phone Heather Wasserman MD Primary Care Provider Reason for Visit * Reason Onset Date Comments Referral Requested by Specialist 07/27/2023 Encounter Details Date Type Department Care Team (Late st Contact Info) Description 07/27/2023 Telephone Cardiology, [facility] [address] [place] [id number] Dolly Petersen CRNP [address] [place] [id number] Referral Requested by Specialist Allergies Active Allergy Reactions Criticality Noted Date Comments Lisinopril 05/09/2022 cough documented as of this encounter (statuses as of 10/26/2023) Medications Medication Sig Dispensed Refills Start Date End Date Status Probiotic Acidophilus BioBeads Oral Capsule Take 1 Capsule by mouth in the morning and 1 Capsule at noon and 1 Capsule in the evening. Take with meals. Active buPROPion HCl ER (XL) 300 MG Oral Tablet Extended Release 24 Hour (Wellbutrin XL)Indications:Adjust ment disorder with mixed anxiety and depressed mood Take 1 Tablet by mouth in the morning. 90 Tablet 3 06/16/2023 Active Carvedilol 3.125 MG Oral Tablet (Coreg)Indications:HT N, goal below 130/80 Take 1 Tablet by mouth 2 times a day. 180 Tablet 3 06/16/2023 Active Levothyroxine Sodium 50 MCG Oral Tablet (Levoxyl)Indications: Acquired hypothyroidism Take 1 Tablet by mouth in the morning. (at least 30 min prior to breakfast or other meds). 90 Tablet 3 06/16/2023 Active oxyBUTYnin Chloride ER 10 MG Oral Tablet Extended Release 24 HourIndications:OAB (overactive bladder) Take 1 Tablet by mouth in the morning. Do not cut, crush or chew. 90 Tablet 3 06/16/2023 Active Escitalopram Oxalate 20 MG Oral Tablet (Lexapro)Indications: Adjustment disorder with mixed anxiety and depressed mood Take 1 Tablet by mouth in the morning. 90 Tablet 3 06/16/2023 Active NATURAL SUPPLEMENT GOLO -- for weight loss Active Losartan Potassium 100 MG Oral Tablet (Cozaar)Indications:P alpitations,HTN, goal below 130/80 Take 1 Tablet by mouth in the morning. 90 Tablet 3 07/27/2023 Active documented as of this encounter (statuses as of 10/26/2023) Active Problems Problem Noted Date Diagnosed Date Meningioma 10/08/2023 CHINMAY (obstructive sleep apnea) 11/16/2022 OAB (overactive bladder) 11/16/2022 Class 2 severe obesity due t o excess calories with serious comorbidity and body mass index (BMI) of 35.0 to 35.9 in adult 11/16/2022 PVCs (premature ventricular contractions) 2022 Primary osteoarthritis of knees, bilateral 05/15 Recurrent major depressive disorder 03/14/2022 Demyelinating disease of central nervous system 10/31/2021 Acquired hypothyroidism 07/19/2020 HTN, goal below 130/80 07/19/2020 ADJ DISORDER W/DEPRES MOOD 04/27/2004 documented as of this encounter (statuses as of 10/26/2023) Immunizations Name Administration Dates Next Due COVID-19 mRNA, LNP-s, No Pre serve, 2-Dose Series (Apsalar) 03/31/2021,07/12/2020,06/21/2020 Covid-19, Mrna, Lnp-s, Pf, B ivalent, 30 Mcg, IM, 12 yrs and above (Apsalar) 12/28/2021 Seasonal Influenza Virus Vac cine, Unspecified Formulation 12/28/2021,11/26/2019,12/10/2013 Seasonal Influenza, PF, 6 M & above, IM , (FluLaval or Fluzone) 11/16/2022 Seasonal Influenza, Quadriva lent, No Preserve, IM 11/26/2019 Seasonal Influenza, Split, I IV3, With Preserve, Inj 12/10/2013 TDAP (age 10 and older)(Boostrix) 10/25/2020 Zoster Vaccine Recombinant (Shingrix) 04/12/2020 ,12/08/2019 02/09/2020 documented as of this encounter Social History Tobacco Use Types Packs/Day Years Used Date Smoking Tobacco: Never Smokeless Tobacco: Never Alcohol Use Standard Drinks/Week Comments Yes 0 (1 standard drink = 0.6 oz pur e alcohol) occasional PHQ-2 Answer Date Recorded PHQ Adult Total Score 0 11/16/2022 Hunger Vital Sign Answer Date Recorded Within the past 12 months, y ou worried that your food would run out before you got the money to buy more. Never true 11/17/19 23 Within the past 12 months, t he food you bought just didn't last and you didn't have money to get more. Never true 11/16/2022 Childcare Answer Date Recorded Do you feel overwhelmed with taking care of a child, family member or friend? No 11/16/2022 Does your family need help f inding childcare? (Household - for ages 0-17 years) Not on file 11/16/2022 Clothing Answer Date Recorded Have you been unable to get clothing when it was really needed? No 11/16/2022 Is your family able to get c lothes or diapers when needed? (Household - for ages 0-17 years) Not on file 11/16/2022 Personal Safety Answer Date Recorded Do you feel unsafe or have concerns for your saf ety? No 11/16/2022 Do you have concerns for you r family's safety? (Household - for ages 0-17 years) Not on file 11/16/2022 Utilities Answer Date Recorded Do you have trouble paying y our heating, water, or electric bill? No 11/16/2022 Is your family able to pay t he heat, water, or electric bill? (Household - for ages 0-17 years) Not on file 11/16/2022 Does your family have access to good internet? (Household - for ages 0-17 years) Not on file 11/16/2022 Employment Status Answer Date Recorded Are you unemployed or without regular income? No 11/16/2022 Does the household have a re gular source of income? (Household - for ages 0-17 years) Not on file 11/16/2022 Social Connections Answer Date Recorded How often do you feel lonely or isolated from th ose around you? Never 11/16/2022 Financial Resource Strain Answer Date R ecorded Do you have any trouble payi ng for your medications, or do you think you might in the future? No 11/16/2022 Does your family have troubl e paying for medicine? (Household - for ages 0-17 years) Not on file 11/16/2022 Transportation Needs Answer Date Record ed READ ONLY Do you have troubl e getting a ride to medical visits or work? Never True 11/16/2022 Does your family have a hard time getting a ride to doctors visits? (Household - for ages 0-17 years) Not on file 11/16/2022 Has lack of transportation k ept you from medical appointments, meetings, work, or from getting things needed for daily living? Check all that apply. (Adult - for ages 18 years and over) Not on file 11/16/2022 Do you (or your family) have trouble finding or paying for a ride (transportation)? (Household - for ages 0-17 years) Not on file 11/16/2022 Housing Stability Answer Date Recorded Do you currently live in a s helter or have no steady place to sleep at night? No 11/16/2022 READ ONLY Do you think you a re at risk of becoming homeless? No 11/16/2022 Does your family worry about paying for your home or becoming homeless? (Household - for ages 0-17 years) Not on file 0 11/16/2022 Are you homeless or worried that you might be in the future? (Adult - for ages 18 years and over) Not on file Are you (or your family) imer eless or worried that you might be in the future? (Household - for ages 0-17 years) Not on file Food Insecurity Answer Date Recorded Do you need food for this week? No 11/16/2022 Are you able to get enough f ood for your family? (Household - for ages 0-17 years) Not on file 11/16/2022 Does your family need food t his week? (Household - for ages 0-17 years) Not on file 11/16/2022 Do you always have enough fo od for your family? (Household - for ages 0-17 years) Not on file 11/16/2022 Sex and Gender Information Value Date Recorded Sex Assigned at Female 12/08/2019 8:31 AM EDT Gender Identity Female 12/08/2019 8:31 AM EDT Sexual Orientation Straight 12/08/2019 8: 31 AM EDT Job Start Date Occupation Industry Not on file Not on file Not on file documented as of this encounter Miscellaneous Notes * Telephone Encounter - Fredi Tompkins OSA - 07/27/2023 8:17 AM EDT Provider placed a referral for patient, please assist patient to schedule. Thank you. documented in this encounter Plan of Treatment Upcoming Encounters Date Type Department Care Team (Late st Contact Info) Description 03/06/2024 11:40 AM EST Office Visit Sleep Disorders Ctr [facility] [address] [phone] Zee Aggarwal DO [address] [id number] 06/20/2024 8:00 AM EDT Office Visit Family Practice [facility] [address] [phone] Heather Wasserman MD [address] [phone] Health Maintenance Due Date Last Done Comments HIV Screening 1975 HPV/Co-Test 1990 Cologuard 2005 Fecal Occult Blood Test 2005 Sigmoidoscopy 2005 Cervical Cancer Screening 12/28/2022 Pap Smear 12/28/2022 12/29/2019, 12/04, 05/13/2013, Additional history exists Influenza Vaccine (FLU shot) (#1) 2023 11/16/2022, 12/28/2021, 11/26/2019, Additional history exists Depression Monitoring 11/17/2023 11/16/2022 Colonoscopy 12/18/2023 12/17/2018, 05/15/2011 Colorectal Cancer Screening 12/18/2023 TSH 05/22/2024 05/23/2023, 03/05, 10/31/2021, Additional history exists Mammogram 06/12/2024 06/13/2023, 06/03, 06/19/2022, Additional history exists GFR 10/11/2024 10/12/2023, 08/04, 05/23/2023, Additional history exists Lipid Panel 05/02/2026 05/02/2021, 07/2019, 05/08/2011, Additional history exists Albumin/Creatinine Ratio 06/15/2026 06/16/2023, 10/04 Diabetes Screening 08/29/2026 08/30/2023, 0 05/23/2023, 03/14/2022, Additional history exists DTaP,Tdap,and Td Vaccines (2 - Td or Tdap) 10/25/2030 10/25/2020 RETIRED - COLONOSCOPY-EVERY 5 YRS AGES 18-100 Discontinued 12/17/2018, 05/15/2011 Zoster Vaccines Completed 04/12/2020, 12/08/2019 COVID-19 Vaccine Discontinued 12/28/2021, , 07/12/2020, Additional history exists HPV (Gardasil) Vaccine Aged Out No lo nger eligible based on patient's age to complete this topic Hepatitis B Vaccine Aged Out No longe r eligible based on patient's age to complete this topic MENINGOCOCCAL (MENACTRA/MENVEO) Aged Out No longer eligible based on patient's age to complete this topic Pneumococcal Vaccine: Pediatrics (0 to 5 Years) and At-Risk Patients (6 to 64 Years) Aged Out No longer eligible based on patient's age to complete this topic documented as of this encounter Medical Devices Not on filedocumented as of this encounter Care Teams Butcher Helper Relationship Specialty Start Date End Date Heather Wasserman MD [address] [id number] PCP - General Internal Medicine 06/13/23 documented as of this encounter
--- OUTSIDE RECORDS SUMMARY | 2024-03-14 07:55 | External Medical Summary | Summary of Care ---
Author Name Unknown Organization [facility] Address [address] [facility] [address] Phone [phone] Care Team Providers Care Polisher Dial Name Role Phone Heather Wasserman MD Primary Care Provider Reason for Visit * Reason Onset Date Comments Medication Administration 11/29/2023 Flu an d/or Pneumo Inj Follow Up Return sleep. Wi tnessed snoring getting worse. Sleep test 1 1/2 years ago. * Evaluate & Treat - Unlimited Visits (Within 10 days (routine)) - Authorized Specialty Diagnoses / Procedures Referred By Contflora t Referred To Contact Sleep Medicine / Sleep Disorders Diagnoses Palpitations HTN, goal below 130/80 Dolly Petersen CRNP [address] [place] [address] Referral ID Status Reason Start Date Expiration Date Visits Requested Visits Authorized [id number] Authorized Specialty Services Required 07/27/2023 2 2 Encounter Details Date Type Department Care Team (Late st Contact Info) Description 11/29/2023 3:00 PM EDT Office Visit Sleep Disorders Ctr [facility] [address] [place] [phone] Zee Aggarwal DO [address] [place] [phone] Obstructive sleep apnea*; Need for prophylactic vaccination and inoculation against influenza; Hypersomnolence; HTN, goal below 130/80 Allergies Active Allergy Reactions Criticality Noted Date Comments Lisinopril 05/09/2022 cough documented as of this encounter (statuses as of 11/29/2023) Medications Medication Sig Dispensed Refills Start Date End Date Status Probiotic Acidophilus BioBeads Oral Capsule Take 1 Capsule by mouth in the morning and 1 Capsule at noon and 1 Capsule in the evening. Take with meals. Active buPROPion HCl ER (XL) 300 MG Oral Tablet Extended Release 24 Hour (Wellbutrin XL)Indications:Adjus tment disorder with mixed anxiety and depressed mood Take 1 Tablet by mouth in the morning. 90 Tablet 3 06/16/2023 Active Carvedilol 3.125 MG Oral Tablet (Coreg)Indications:H TN, goal below 130/80 Take 1 Tablet by mouth 2 times a day. 180 Tablet 06/16/2023 Active Levothyroxine Sodium 50 MCG Oral Tablet (Levoxyl)Indications :Acquired hypothyroidism Take 1 Tablet by mouth in the morning. (at least 30 min prior to breakfast or other meds). 90 Tablet 3 06/16/2023 Active oxyBUTYnin Chloride ER 10 MG Oral Tablet Extended Release 24 HourIndications:OAB (overactive bladder) Take 1 Tablet by mouth in the morning. Do not cut, crush or chew. 90 Tablet 3 06/16/2023 Active Escitalopram Oxalate 20 MG Oral Tablet (Lexapro)Indications :Adjustment disorder with mixed anxiety and depressed mood Take 1 Tablet by mouth in the morning. 90 Tablet 3 06/16/2023 Active NATURAL SUPPLEMENT GOLO -- for weight loss Active Losartan Potassium 100 MG Oral Tablet (Cozaar)Indications: Palpitations,HTN, goal below 130/80 Take 1 Tablet by mouth in the morning. 90 Tablet 3 07/27/2023 Active Triamcinolone Acetonide 0.1 % External Cream (Aristocort) Apply to sites on arms and legs twice daily x 2-3 weeks 80 g 1 08/03/2023 Active Ondansetron HCl 4 MG Oral Tablet Take 1 Tablet by mouth every 8 hours as needed for Nausea. 15 Tablet 10/08/2023 Active Additional Information Patient not taking.Reported on 11/29/2023 Qiv-Geo-Uidl-D Oral Tablet Take by mouth. Active Weight Loss Daily Multi Oral Tablet Take by mouth. Act abhijeet documented as of this encounter (statuses as of 11/29/2023) Active Problems Problem Noted Date Diagnosed Date [...] as of this encounter (statuses as of 11/29/2023) Immunizations Name Administration Dates Next Due COVID-19 mRNA, LNP-s, No Pre serve, 2-Dose Series ([email or web address]) 03/31/2021,07/12/2020,06/21/2020 Covid-19, Mrna, Lnp-s, Pf, B ivalent, 30 Mcg, IM, 12 yrs and above ([email or web address]) 12/28/2021 Seasonal Influenza Virus Vac cine, Unspecified Formulation 12/28/2021,11/26/2019,12/10/2013 Seasonal Influenza, PF, 6 M & above, IM , (FluLaval or Fluzone) 11/16/2022 Seasonal Influenza, Quadriva lent, No Preserve, IM 11/26/2019 Seasonal Influenza, Trivalen t, (IIV3), PF, (Fluzone) 11/29/2023 Seasonal Influenza, Trivalen t, (IIV3), with Preserv, (Fluzone) 12/10/2013 TDAP (age 10 and older)(Boostrix) 10/25/2020 Zoster Vaccine Recombinant (Shingrix) 04/12/2020 ,12/08/2019 02/09/2020 documented as of this encounter Social History Tobacco Use Types Packs/Day Years Used Date Smoking Tobacco: Former Cigarettes Smokeless Tobacco: Never Tobacco Cessation:Counseling Given: Not Answered Comments:Socially smoker x 2 years. 2 cpd. Alcohol Use Standard Drinks/Week Comments Yes 0 [...] y our heating, water, or electric bill? (Adult - for ages 18 years and over) Not on file 11/17/2023 Is your family able to pay t he heat, water, or electric bill? (Household - for ages 0-17 years) Not on file 11/17/2023 Does your family have access to good internet? (Household - for ages 0-17 years) Not on file 11/17/2023 Employment Status Answer Date Recorded Are you unemployed or without regular income? No 11/16/2022 Does the household have a re gular source of income? (Household - for ages 0-17 years) Not on file 11/16/2022 Social Connections Answer Date Recorded How often do you feel lonely or isolated from those around you? (Adult - for ages 18 years and over) Not on file 11/17/2023 Financial Resource Strain Answer Date R ecorded [...] on file documented as of this encounter Last Filed Vital Signs Vital Sign Reading Time Taken Comments Blood Pressure 128/88 11/29/2023 3:08 PM EDT Pulse 59 11/29/2023 3:08 PM EDT Temperature 36.4 C (97.5 F) 11/29/2023 3:08 PM ED T Respiratory Rate 16 11/29/2023 3:08 PM EDT Oxygen Saturation 97% 11/29/2023 3:08 PM EDT Inhaled Oxygen Concentration - - Weight 98.9 kg (218 lb) 11/29/2023 3:08 PM EDT Height 165.1 cm (5' 5") 11/29/2023 3:08 PM EDT Body Mass Index 36.28 11/29/2023 3:08 PM EDT documented in this encounter Patient Instructions * Patient Instructions* Zee Aggarwal, - 11/29/2023 3:36 PM EDT To use an oral appliance for treatment of obstructive sleep apnea: A list of dental providers in the area who have experience with these devices follows. Please checkwhether/how any of these providers will work with your medical insurance to help cover the device, and check with your medical insurance whether they cover the dental device. Once you make an appointment with one of the dental providers, they may contact our office for any information that they need, such as a copy of your sleep study report. Once you have had a device made and titrated with one of the dental offices, please let me know so that we will follow up with a home sleep study (while using the dental device) to check whether it is doing a good job of treating the sleep apnea. If you are deemed to not be a good candidate for oral appliance therapy to treat sleep apnea, please let my office know. *Vipul Metz DDS, [facility] [address] , [place] [address] [email or web address] *Fredis Manzo DMD, [facility] [address] [place] [address], [place] [address] [email or web address] Christophe Lowry DMD, [facility] [address], [place] [address] [email or web address] Ariela [place], BEN[place], [facility] [address] [address] [email or web address] Or go to: [email or web address] -> then click "Find an AADSMDentist" and search in your location More information about oral appliance therapy can be found here: [email or web address] CPT (billing) code for Oral appliance therapy (dental device): likely E0486; please also confirm with the dental office the code that they use for billing. eXciteOSA works by providing electrical stimulation to the tongue to strengthen those muscles. It is used during the daytime (20 minutes a day for 6 weeks, then reduce to twice a week thereafter). Contraindications would include mouth ulcers/sores, or implanted devices such as a pacemaker. It wouldneed to connect through a cell phone rosana (currently has iPhone and Android compatibility). More information about this therapy can be found at [email or web address]. HCPCS (billing) codes for eXciteOSA: K1028 and K1029 (control unit & mouthpiece). The mouthpiece is replaced every 90 days. documented in this encounter Progress Notes * Zee Aggarwal DO - 11/29/2023 3:05 PM EDT Sleep Medicine Follow-Up HISTORY: Alberta Reid is a 63 year old female seen today for follow up after completing sleep testing. Patient was seen on 06/05/22 with snoring, fatigue. Noted variable sleep schedule. Occasional restless legs sxs. [place] was 15, FOSQ 28. Hx HTN, hypothyroidism, PVCs, depression. In-laboratory PSG results: Date: 06/22/23 TST: 407 minutes AHI/RDI: 5.6/5.7 /hr REM AHI: 23.4 SpO2 niranjan: 81% Time SpO2 <89%: 15.2 min PLMI: 43.9 /hr PLMAI: 12.4 /hr Iron screen normal with ferritin 114 on 05/23/23. tells her snoring is louder. No change in tiredness. Fatigue persists. Still has varying sleep schedule, often based on 's work shifts. Still has occasional RLS sxs. [place] Sleepiness Scale Question 11/29/2023 3:11 PM EDT - Filed by Claudia Flores LPN What is the chance you will doze off in the following situation? Sitting and reading Moderate chance of dozing Watching TV Moderate chance of dozing Sitting inactive in a public place, such as a theater or meeting No chance of dozing As a passenger in a car for an hour without a break Slight chance of dozing Lying down to rest in the afternoon when circumstances permit No chance of dozing When sitting and talking to someone No chance of dozing When sitting quietly after lunch without alcohol No chance of dozing In a car, while stopped for a few minutes in traffic No chance of dozing Score (range: 0 - 24) 5 Additional changes in health in the interim of care: no Patient Active Problem List Diagnosis ADJ DISORDER W/DEPRES MOOD Acquired hypothyroidism HTN, goal below 130/80 Demyelinating disease of central nervous system (HCC) Recurrent major depressive disorder (HCC) PVCs (premature ventricular contractions) Primary osteoarthritis of knees, bilateral CHINMAY (obstructive sleep apnea) OAB (overactive bladder) Class 2 severe obesity due to excess calories with serious comorbidity and body mass index (BMI) of35.0 to 35.9 in adult (HCC) Meningioma (HCC) Current Outpatient Medications Medication Sig Dispense Refill Nhb-Ewx-Cisz-D Oral Tablet Take by mouth. Weight Loss Daily Multi Oral Tablet Take by mouth. Triamcinolone Acetonide 0.1 % External Cream (Aristocort) Apply to sites on arms and legs twice daily x 2-3 weeks 80 g 1 Losartan Potassium 100 MG Oral Tablet (Cozaar) Take 1 Tablet by mouth in the morning. 90 Tablet 3 NATURAL SUPPLEMENT GOLO -- for weight loss buPROPion HCl ER (XL) 300 MG Oral Tablet Extended Release 24 Hour (Wellbutrin XL) Take 1 Tablet by mouth in the morning. 90 Tablet 3 Carvedilol 3.125 MG Oral Tablet (Coreg) Take 1 Tablet by mouth 2 times a day. 180 Tablet 3 Escitalopram Oxalate 20 MG Oral Tablet (Lexapro) Take 1 Tablet by mouth in the morning. 90 Tablet 3 Levothyroxine Sodium 50 MCG Oral Tablet (Levoxyl) Take 1 Tablet by mouth in the morning. (at least 30 min prior to breakfast or other meds). 90 Tablet 3 oxyBUTYnin Chloride ER 10 MG Oral Tablet Extended Release 24 Hour Take 1 Tablet by mouth in the morning. Do not cut, crush or chew. 90 Tablet 3 Probiotic Acidophilus BioBeads Oral Capsule Take 1 Capsule by mouth in the morning and 1 Capsule atnoon and 1 Capsule in the evening. Take with meals. Ondansetron HCl 4 MG Oral Tablet Take 1 Tablet by mouth every 8 hours as needed for Nausea. (Patient not taking: Reported on 11/29/2023) 15 Tablet 0 No current facility-administered medications for this visit. PHYSICAL EXAM: Filed Vitals: 11/29/23 1508 BP: 128/88 Pulse: 59 Resp: 16 Temp: 36.4 C (97.5 F) TempSrc: Tympanic SpO2: 97% Weight: 98.9 kg (218 lb) Height: 1.651 m (5' 5") General: alert, no acute distress Head: NC/AT Lungs: normal respiratory effort Neuro: speech clear and appropriate ASSESSMENT/PLAN: Obstructive sleep apnea - mild by AHI criteria, associated with HTN, persistent fatigue, and increased snoring. - Pathophysiology, short- and long-term complications, and treatment options discussed. - Will begin autotitrating CPAP at 5-20 cmH2O. DME: patient chooses [facility]. CPAP machine, supplies, and mask fitting ordered. - Discussed oral appliance therapy and eXciteOSA as potential alternative treatment options. - Weight loss can improve the severity of sleep apnea or the level of treatment needed. IF we need to update sleep testing due to time elapsed since PSG: Please verify the following with the patient before ordering WatchPAT study: Does patient have Wifi? Yes Does patient have smart phone? Yes Do they have acrylic nails or nail telugu? No: Do they have a pacemaker? No Are they on alphablockers? Please list which med is the alphablocker: no Would have her take evening dose of Coreg at least 3 hours before starting the study. What is the phone number of the cell phone they will be using? [phone] Follow-up with Sleep Medicine in 2 months for first CPAP check. Zee Aggarwal DO * Claudia Flores LPN - 11/29/2023 2:54 PM EDT PRE - ADMINISTRATION DOCUMENTATION Are you experiencing any cold symptoms or fever? No Have you had Guillain-[place] Syndrome (an illness that causes paralysis) within the last 6 weeks? No Have you had the flu shot in the past? YES Have you ever had a reaction to the flu shot? No Claudia Flores LPN, 11/29/2023 2:54 PM Immunization Administration Documentation Time Out Procedure Performed: Yes Patient Identified (Ask Name/Date of ): Yes Does the patient have a fever greater than 101 degrees today? No Patient allergic to latex? No VFC Stock: No Immunization(s) verified: Yes, Immunization Name: Flu, VIS Sheet(s) given: Yes Verified Side and Site: Yes Verified Shot(s) with Parent(s)/Patient: Yes documented in this encounter Nursing Notes * Claudia Floers LPN - 11/29/2023 3:09 PM EDT Chief Complaint Patient presents with Medication Administration Flu and/or Pneumo Inj Follow Up Return sleep. Witnessed snoring getting worse. Sleep test 1 1/2 years ago. [place] Sleepiness Scale Question 11/29/2023 3:11 PM EDT - Filed by Claudia Flores LPN What is the chance you will doze off in the following situation? Sitting and reading Moderate chance of dozing Watching TV Moderate chance of dozing Sitting inactive in a public place, such as a theater or meeting No chance of dozing As a passenger in a car for an hour without a break Slight chance of dozing Lying down to rest in the afternoon when circumstances permit No chance of dozing When sitting and talking to someone No chance of dozing When sitting quietly after lunch without alcohol No chance of dozing In a car, while stopped for a few minutes in traffic No chance of dozing Score (range: 0 - 24) 5 documented in this encounter Plan of Treatment Upcoming Encounters Date Type Department Care Team (Late st Contact Info) Description 02/13/2024 9:00 AM EST Office Visit Cardiology, [facility] [address] [place] [address] Akua Rush CRNP [address] [place] [address] 06/20/2024 8:00 AM EDT Office Visit Family Practice [facility] [address] [address] Heather Wasserman MD [address] [place] [address] 07/17/2024 11:40 AM EDT Office Visit Sleep Disorders Ctr [facility] [address] [place] [phone] Zee Aggarwal DO [address] [place] [address] 09/22/2024 10:00 AM EDT Office Visit Gynecology/Obstetrics [facility] [address] [address] Miley German PA-C [address] [place] [phone] Health Maintenance Due Date Last Done Comments HIV Screening 1975 HPV/Co-Test 1990 Cologuard 2005 Fecal Occult Blood Test 2005 Sigmoidoscopy 2005 Cervical Cancer Screening 12/28/2022 Pap Smear 12/28/2022 12/29/2019, 12/04, 05/13/2013, Additional history exists Depression Monitoring 11/17/2023 11/16/2022 Colonoscopy 12/18/2023 12/17/2018, 05/15/2011 Colorectal Cancer Screening 12/18/2023 TSH 05/22/2024 05/23/2023, 03/05, 10/31/2021, Additional history exists Mammogram 06/12/2024 06/13/2023, 06/03, 06/19/2022, Additional history exists GFR 10/11/2024 10/12/2023, 08/04, 05/23/2023, Additional history exists Lipid Panel 05/02/2026 05/02/2021, 07/2019, 05/08/2011, Additional history exists Albumin/Creatinine Ratio 06/15/2026 06/16/2023, 10/04 Diabetes Screening 08/29/2026 08/30/2023, 0 05/23/2023, 03/14/2022, Additional history exists DTap/Tdap Vaccines (2 - Td or Tdap) 10/25/2030 10/25/2020 RETIRED - COLONOSCOPY-EVERY 5 YRS AGES 18-100 Discontinued 12/17/2018, 05/15/2011 Zoster Vaccines Completed 04/12/2020, 12/08/2019 COVID-19 Vaccine Discontinued 12/28/2021, , 07/12/2020, Additional history exists Influenza Vaccine (FLU shot) Completed 11/29/2023, 11/16/2022, 12/28/2021, Additional history exists HPV (Gardasil) Vaccine Aged [...] Not on filedocumented as of this encounter Visit Diagnoses Diagnosis Obstructive sleep apnea- Primary Obstructive sleep apnea (adult) (pediatric) Need for prophylactic vaccination and inoculation against influenza Hypersomnolence Hypersomnia, unspecified HTN, goal below 130/80 Unspecified essential hypertension documented in this encounter Care Teams Polisher Dial Relationship Specialty Start Date End Date Heather Wasserman MD [address] [place] [phone] PCP - General Internal Medicine 06/13/23 documented as of this encounter
--- OUTSIDE RECORDS SUMMARY | 2024-03-14 07:55 | External Medical Summary | Summary of Care ---
Author Name Unknown Organization [facility] Address [address] [facility] [address] Phone [phone] Care Team Providers Care Fitness Trainer Name Role Phone Heather Wasserman MD Primary Care Provider Reason for Referral * Evaluate & Treat - Unlimited Visits (Within 30 days (routine)) - Authorized Specialty Diagnoses / Procedures Referred By Kaila bauman Referred To Contact Obstetrics/Gynecology / Gynecology Obstetrics Diagnoses Screening for malignant neoplasm of cervix Heather Wasserman MD [address] [place] [address] Referral ID Status Reason Start Date Expiration Date Visits Requested Visits Authorized [id number] Authorized Specialty Services Required 11/01/2023 1 1 Question Answer What condition is the patient being seen for? Annual Annuals should only be placed with a priority of 30 days I acknowledge Referral Priority Within 30 days (routine) Where should this appointment be scheduled? [facility] Reason for Visit * Reason Onset Date Comments Health Maintenance 11/01/2023 Encounter Details Date Type Department Care Team (Late st Contact Info) Description 11/01/[address] [facility] [address] [phone] Heather Wasserman MD [address] [place] [phone] Health Maintenance Allergies Active Allergy Reactions Criticality Noted Date Comments Tammiepril 05/09/2022 cough documented as of this encounter (statuses as of 11/01/2023) Medications Medication Sig Dispensed Refills Start Date [...] needed for Nausea. 15 Tablet 10/08/2023 Active documented as of this encounter (statuses as of 11/01/2023) Active Problems Problem Noted Date Diagnosed Date [...] as of this encounter (statuses as of 11/01/2023) Immunizations Name Administration Dates Next Due COVID-19 mRNA, LNP-s, No Pre serve, 2-Dose Series ([employer]) 03/31/2021,07/12/2020,06/21/2020 Covid-19, Mrna, Lnp-s, Pf, B ivalent, 30 Mcg, IM, 12 yrs and above ([employer]) 12/28/2021 Seasonal Influenza Virus Vac cine, Unspecified Formulation 12/28/2021,11/26/2019,12/10/2013 Seasonal Influenza, PF, 6 M & above, IM , (FluLaval or Fluzone) 11/16/2022 Seasonal Influenza, Quadriva lent, No Preserve, IM 11/26/2019 Seasonal Influenza, Trivalen t, (IIV3), with Preserv, [...] encounter Miscellaneous Notes * Telephone Encounter - Balbina Arellano LPN - 11/01/2023 11:39 AM EDT Care Gaps Comprehensive Care Outreach Last Office/Telemedicine Visit: 10/08/2023 (in office), Visit date not found (telemedicine) Next Office Visit: 06/20/2024 Hemoglobin AIC Results: Lab Results Component Value Date/Time HEMOGLOBIN A1C - ADRIANNAER 5.5 05/12/2013 08:11 AM BP Readings from Last 1 Encounters: 10/08/23 148/90 Reviewed Health Maintenance below: Health Maintenance Topic Date Due HIV Screening Never done Cervical Cancer Screening 12/28/2022 Colorectal Cancer Screening 12/18/2023 Influenza Vaccine (FLU shot) (1) 11/04/2023 Depression Monitoring 11/17/2023 TSH 05/22/2024 Mammogram 06/12/2024 Patient called to schedule her pap Scheduled Care Gap Outreach Action Taken: Spoke to patient documented in this encounter Plan of Treatment Upcoming Encounters Date Type Department Care Team (Late st Contact Info) Description 02/13/2024 9:00 AM EST Office Visit Cardiology, [facility] [address] [address] Akua Rush CRNP [address] [place] [address] [place] [address] 03/06/2024 11:40 AM EST Office Visit Sleep Disorders Ctr [facility] [address] [phone] Zee Aggarwal DO [address] [place] [address] 06/20/2024 8:00 AM EDT Office Visit Family Practice [facility] [address] [address] Heather Wasserman MD [address] [place] [address] 09/22/2024 10:00 AM EDT Office Visit Gynecology/Obstetrics [facility] [address] [address] Miley German PA-C [address] [place] [address] Scheduled Referrals Name Type Priority Associated Diagnoses Orde r Schedule SE[facility] REFERRAL OP Referral Within 30 days (routine) Screening for malignant neoplasm of cervix Ordered: 11/01/2023 Health Maintenance Due Date Last Done Comments [...] as of this encounter Visit Diagnoses Diagnosis Screening for malignant neoplasm of cervix- Primary Screening for malignant neoplasm of the cervix documented in this encounter Care Teams Fitness Trainer Relationship Specialty Start Date End Date Heather Wasserman MD [address] [place] [address] PCP - General Internal Medicine 06/13/23 documented as of this encounter
--- OUTSIDE RECORDS SUMMARY | 2024-03-14 07:55 | External Medical Summary | Summary of Care ---
Author Name Unknown Organization [facility] Address [address] [place] [address] Phone [phone] Care Team Providers Care Food Preservation Scientist Name Role Phone Yokasta Wasserman MD Primary Care Provider Reason for Referral * Evaluate & Treat - Unlimited Visits (Within 30 days (routine)) - Authorized Specialty Diagnoses / Procedures Referred By Kaila bauman Referred To Contact Neurology Diagnoses Dizziness Abnormal neurological exam Yokasta Wasserman MD [address] [place] [address] Referral ID Status Reason Start Date Expiration Date Visits Requested Visits Authorized [id number] Authorized Specialty Services Required 10/13/2023 999 999 Question Answer Referral Priority Within 30 days (routine) Where should this appointment be scheduled? External - [facility] Neurology Is this referral being placed for insurance purposes ONLY No, patient needs appointment [facility] NEUROLOGY REFERRAL QUESTIONS Other Conditions Comments Previous patient of Dr Chau, past ?demyelinating disease. Two recent falls where lost balance for unclear reason. Intermittent dizziness. Abnormal Romberg. * Precert (Within 24 hrs (call dept; emergent)) - Authorized Specialty Diagnoses / Procedures Referred By Kaila bauman Referred To Contact Radiology Diagnoses Dizziness Meningioma (HCC) Procedures CT HEAD/BRAIN W WO CONTRAST Yokasta Wasserman MD [address] [place] [address] Referral ID Status Reason Start Date Expiration Date V isits Requested Visits Authorized [id number] Authorized Precert 10/08/2023 04/05/2024 999 999 Reason for Visit * Reason Onset Date Comments Referral 10/08/2023 Encounter Details Date Type Department Care Team (Late st Contact Info) Description 10/08/[address] [facility] [address] [place] [address] Yokasta Wasserman MD [address] [place] [address] Referral Allergies Active Allergy Reactions Criticality Noted Date Comments Lisinopril 05/09/2022 cough documented as of this encounter (statuses as of 10/13/2023) Medications Medication Sig Dispensed Refills Start Date [...] by mouth in the morning. 90 Tablet 06/16/2023 Active Carvedilol 3.125 MG Oral Tablet (Coreg)Indications:HT N, goal below 130/80 Take 1 Tablet by mouth 2 times a day. 180 Tablet 06/16/2023 Active Levothyroxine Sodium 50 MCG Oral Tablet (Levoxyl)Indications: Acquired hypothyroidism Take 1 Tablet by mouth in the morning. (at least 30 min prior to breakfast or other meds). 90 Tablet 06/16/2023 Active oxyBUTYnin Chloride ER 10 MG Oral Tablet Extended Release 24 HourIndications:OAB (overactive bladder) Take 1 Tablet by mouth in the morning. Do not cut, crush or chew. 90 Tablet 06/16/2023 Active Escitalopram Oxalate 20 MG Oral Tablet (Lexapro)Indications: Adjustment disorder with mixed anxiety and depressed mood Take 1 Tablet by mouth in the morning. 90 Tablet 06/16/2023 Active NATURAL SUPPLEMENT GOLO -- for [...] as of this encounter (statuses as of 10/13/2023) Active Problems Problem Noted Date Diagnosed Date [...] as of this encounter (statuses as of 10/13/2023) Immunizations Name Administration Dates Next Due COVID-19 mRNA, LNP-s, No Pre serve, 2-Dose Series (Meme) 03/31/2021,07/12/2020,06/21/2020 Covid-19, Mrna, Lnp-s, Pf, B ivalent, 30 Mcg, IM, 12 yrs and above (Meme) 12/28/2021 Seasonal Influenza Virus Vac cine, Unspecified [...] encounter Miscellaneous Notes * Telephone Encounter - Sima Aguilar OSA - 10/13/2023 2:32 PM EDT LM for patient to call back and schedule neuro appt * Addendum Note - Yokasta Wasserman MD - 10/13/2023 2:15 PM EDTAddended by: YOKASTA WASSERMAN on: 10/13/2023 02:15 PM Modules accepted: Orders * Telephone Encounter - Yokasta Wasserman MD - 10/13/2023 2:15 PM EDT Neuro referral, [facility]. * Telephone Encounter - Yokasta Wasserman MD - 10/08/2023 2:28 PM EDT signed documented in this encounter Plan of Treatment Upcoming Encounters Date Type Department Care Team (Late st Contact Info) Description 02/06/2024 8:00 AM EST Office Visit Cardiology, [facility] [address] [place] [address] Dolly Petersen CRNP [address] [place] [address] 03/06/2024 11:40 AM EST Office Visit Sleep Disorders Ctr [facility] [address] [place] [phone] Zee Aggarwal DO [address] [place] [address] 06/20/2024 8:00 AM EDT Office Visit Family Practice [facility] [address] [place] [address] Yokasta Wasserman MD [address] [place] [address] Scheduled Orders Name Type Priority Associated Diagnoses Orde r Schedule CT HEAD/BRAIN W WO CONTRAST Medical Imaging STAT Dizziness Meningioma (HCC) Ordered: 10/08/2023 Scheduled Referrals Name Type Priority Associated Diagnoses Orde r Schedule ADULT NEUROLOGY REFERRAL OP Referral Within 30 days (routine) Dizziness Abnormal neurological exam Ordered: 10/13/2023 Health Maintenance Due Date Last Done Comments [...] Additional history exists Lipid Panel 05/02/2026 05/02/2021, 1007/2019, 05/08/2011, Additional history exists Albumin/Creatinine Ratio 06/15/2026 [...] as of this encounter Visit Diagnoses Diagnosis Dizziness- Primary Dizziness and giddiness Meningioma (HCC) Benign neoplasm of cerebral meninges Abnormal neurological exam Other symptoms involving nervous and musculoskeletal systems documented in this encounter Care Teams Food Preservation Scientist Relationship Specialty Start Date End Date Yokasta Wasserman MD [address] [facility] [place] [address] PCP - General Internal Medicine 06/13/23 documented as of this encounter
--- OUTSIDE RECORDS SUMMARY | 2024-03-14 07:55 | External Medical Summary | Summary of Care ---
Author Name Unknown Organization [facility] Address [address] [facility] [place] [address] Phone [phone] Care Team Providers Care Water Resource Consultant Name Role Phone Heather Horvath MD Primary Care Provider Reason for Visit * Reason Comments eRx-Medication Refill Encounter Details Date Type Department Care Team (Late st Contact Info) Description 03/10/2024 Refill Family Practice [facility] [address] [place] [address] Juan Carlos Carmona, DO [address] [place] [address] Acquired hypothyroidism Allergies Active Allergy Reactions Criticality Noted Date Comments Lisinopril 05/09/2022 cough documented as of this encounter (statuses as of 03/11/2024) Medications Probiotic Acidophilus BioBeads Oral Capsule Take 1 Capsule by mouth in the morning and 1 Capsule at noon and 1 Capsule in the evening. Take with meals. Active buPROPion HCl ER (XL) 300 MG Oral Tablet Extended Release 24 Hour (Wellbutrin XL)Indications:Ad justment disorder with mixed anxiety and depressed mood Take 1 Tablet by mouth in the morning. 90 Tablet 3 06/16/19 24 Active Carvedilol 3.125 MG Oral Tablet (Coreg)Indication s:HTN, goal below 130/80 Take 1 Tablet by mouth 2 times a day. 180 Tablet 3 06/16/19 24 Active oxyBUTYnin Chloride ER 10 MG Oral Tablet Extended Release 24 HourIndications:O AB (overactive bladder) Take 1 Tablet by mouth in the morning. Do not cut, crush or chew. 90 Tablet 3 06/16/19 24 Active Escitalopram Oxalate 20 MG Oral Tablet (Lexapro)Indicati ons:Adjustment disorder with mixed anxiety and depressed mood Take 1 Tablet by mouth in the morning. 90 Tablet 3 06/16/19 24 Active NATURAL SUPPLEMENT GOLO -- for weight loss Active Losartan Potassium 100 MG Oral Tablet (Cozaar)Indicatio ns:Palpitations,H TN, goal below 130/80 Take 1 Tablet by mouth in the morning. 90 Tablet 3 07/27/19 24 Active Ondansetron HCl 4 MG Oral Tablet Take 1 Tablet by mouth every 8 hours as needed for Nausea. 15 Tablet 10/08/19 24 Active Iai-Foq-Uncw-D Oral Tablet Take by mouth. Active Triamcinolone Acetonide 0.1 % External Cream (Aristocort) APPLY TO SITES ON ARMS AND LEGS TWICE DAILY X 2-3 WEEKS 80 g 1 01/28/20 24 Active hydroCHLOROthiazi de 12.5 MG Oral Capsule Take 1 Capsule by mouth in the morning. 30 Capsule 3 02/13/20 24 Active Levothyroxine Sodium 50 MCG Oral Tablet (Levoxyl)Indicati ons:Acquired hypothyroidism TAKE 1 TABLET BY MOUTH IN THE MORNING AT LEAST 30 MINUTES PRIOR TO BREAKFAST AND OTHER MEDS 90 Tablet 1 03/11/19 25 Active Levothyroxine Sodium 50 MCG Oral Tablet (Levoxyl)Indicati ons:Acquired hypothyroidism Take 1 Tablet by mouth in the morning. (at least 30 min prior to breakfast or other meds). 90 Tablet 3 06/16/19 24 025 Discontinued documented as of this encounter (statuses as of 03/11/2024) Active Problems Problem Noted Date Diagnosed Date [...] as of this encounter (statuses as of 03/11/2024) Immunizations Name Administration Dates Next Due COVID-19 mRNA, LNP-s, No Pre serve, 2-Dose Series (Thefuture.fm) 03/31/2021,07/12/2020,06/21/2020 Covid-19, Mrna, Lnp-s, Pf, B ivalent, 30 Mcg, IM, 12 yrs and above (Pfizer) 12/28/2021 Seasonal Influenza Vac., MDV , IM, 0.5 mL (Fluzone) 12/10/2013 Seasonal Influenza Virus Vac cine, Unspecified Formulation 12/28/2021,11/26/2019,12/10/2013 Seasonal Influenza, PF, 6 M & above, IM , (FluLaval or Fluzone) 11/16/2022 Seasonal Influenza, Quadriva lent, No Preserve, IM 11/26/2019 Seasonal Influenza, Trivalen t, (IIV3), PF, (Fluzone) 11/29/2023 TDAP (age 10 and older)(Boostrix) 10/25/2020 Zoster Vaccine Recombinant (Shingrix) 04/12/2020 ,12/08/2019 02/09/2020 documented as of this encounter Social History Tobacco Use Types Packs/Day Years Used Date Smoking Tobacco: Former Cigarettes Smokeless Tobacco: Never Comments:Socially smoker x 2 years. 2 cpd. [...] No 11/16/2022 Does the household have a [facility] source [facility] income? 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 Not on file Not on file documented as of this encounter Miscellaneous Notes * Telephone Encounter - Ede Sarmiento formerly [facility] - 03/11/2024 1:35 PM ESTSigned Prescriptions: Disp Refills Levothyroxine Sodium 50 MCG Oral Tablet (L*90 Tab*1 Sig: TAKE 1 TABLET BY MOUTH IN THE MORNING AT LEAST 30 MINUTES PRIOR TO BREAKFAST AND OTHER MEDSAuthorizing Provider: HEATHER HORVATH User: EDE SARMIENTO documented in this encounter Plan of Treatment Upcoming Encounters Date Type Department Care Team (Late st Contact Info) Description 04/16/2024 9:00 AM EST Office Visit Cardiology, [facility] [address] [address] Akua Rush CRNP [address] [place] [address] [place] [address] 06/20/2024 8:00 AM EDT Office Visit Family Practice [facility] [address] [place] [address] Heather Horvath MD [address] [place] [address] 07/17/2024 11:40 AM EDT Office Visit Sleep Disorders Ctr [facility] [address] [place] [phone] Zee Aggarwal DO [address] [place] [address] 09/22/2024 10:00 AM EDT Office Visit Gynecology/Obstetrics [facility] [address] [place] [address] Miley German PA-C [address] [place] [address] Health Maintenance Due Date Last Done Comments HIV Screening 1975 HPV/Co-Test 1990 Cologuard 2005 Fecal Occult Blood Test 2005 Sigmoidoscopy 2005 Pneumococcal Vaccine: 50+ Years (1 of 1 - PCV) 2010 Cervical Cancer Screening 12/28/2022 Pap Smear 12/28/2022 12/29/2019, 12/04, 05/13/2013, Additional history exists Depression Monitoring 11/17/2023 11/16/2022 Colonoscopy 12/18/2023 12/17/2018, 05/15/2011 Colorectal Cancer Screening 12/18/2023 TSH 05/22/2024 05/23/2023, 03/05, 10/31/2021, Additional history exists Mammogram 06/12/2024 06/13/2023, 06/03, 06/19/2022, Additional history exists GFR 02/27/2025 02/28/2024, 080 11/2023, 08/30/2023, Additional history exists Lipid Panel 05/02/2026 05/02/2021, 1007/2019, 05/08/2011, Additional history exists Albumin/Creatinine Ratio 06/15/2026 06/16/2023, 10/04 Diabetes Screening 02/27/2027 02/28/2024, 0 08/30/2023, 05/23/2023, Additional history exists DTap/Tdap Vaccines (2 - [...] as of this encounter Visit Diagnoses Diagnosis Acquired hypothyroidism Unspecified hypothyroidism documented in this encounter Care Teams Water Resource Consultant Relationship Specialty Start Date End Date Heather Horvath MD [address] [place] [address] PCP - General Internal Medicine 06/13/23 documented as of this encounter
--- OUTSIDE RECORDS SUMMARY | 2024-03-14 07:55 | External Medical Summary | Summary of Care ---
Author Name Unknown Organization [facility] Address [address] [facility] [address] Phone [phone] Care Team Providers Care Health And Wellness Instructor Name Role Phone Heather Wasserman MD Primary Care Provider Reason for Visit * Reason Onset Date Comments Referral Requested by Specialist 07/27/2023 Encounter Details Date Type Department Care Team (Late st Contact Info) Description 07/27/2023 Telephone Cardiology, [facility] [address] [place] [address] Dolly Petersen CRNP [address] [place] [address] Referral Requested by Specialist Allergies Active Allergy [...] mRNA, LNP-s, No Pre serve, 2-Dose Series (Reviewspotter) 03/31/2021,07/12/2020,06/21/2020 Covid-19, Mrna, Lnp-s, Pf, B ivalent, 30 Mcg, IM, 12 yrs and above (Reviewspotter) 12/28/2021 Seasonal Influenza Virus Vac cine, Unspecified [...] encounter Miscellaneous Notes * Telephone Encounter - Danielle Nix OSA - 07/31/2023 10:04 AM EDT Called patient, left message to return call. Please offer first available. * Telephone Encounter - Fredi Tompkins OSA - 07/27/2023 8:18 AM EDT Provider placed a referral for patient, please assist patient to schedule, thank you. documented in this encounter Plan of Treatment Upcoming Encounters Date Type Department Care Team (Late st Contact Info) Description 03/06/2024 11:40 AM EST Office Visit Sleep Disorders Ctr [facility] [address] [place] [address] [phone] Zee Aggarwal, [address] [place] [address] 06/20/2024 8:00 AM EDT Office Visit Family Practice [facility] [address] [place] [address] Heather Wasserman MD [address] [place] [address] Health Maintenance Due Date Last Done Comments [...] filedocumented as of this encounter Care Teams Health And Wellness Instructor Relationship Specialty Start Date End Date Heather Wasserman MD [address] [place] [address] PCP - General Internal Medicine 06/13/23 documented as of this encounter
--- OUTSIDE RECORDS SUMMARY | 2024-03-14 07:55 | External Medical Summary | Summary of Care ---
Author Name Unknown Organization [facility] Address [address] [facility] [address] Phone [phone] Care Team Providers Care Wash Operator Name Role Phone Heather Wasserman MD Primary Care Provider Reason for Visit * Reason Onset Date Comments Test Results 02/28/2024 Encounter Details Date Type Department Care Team (Late st Contact Info) Description 02/28/2024 Telephone Cardiology, [facility] [address] [facility] [place] [address] Akua Rush CRNP [address] [facility] [place] [address] Test Results Allergies Active Allergy Reactions Criticality Noted Date Comments Lisinopril 05/09/2022 cough documented as of this encounter (statuses as of 02/28/2024) Medications Probiotic Acidophilus BioBeads Oral Capsule Take 1 Capsule by mouth in the morning and 1 Capsule at noon and 1 Capsule in the evening. Take with meals. Active buPROPion HCl ER (XL) 300 MG Oral Tablet Extended Release 24 Hour (Wellbutrin XL)Indications:Adj ustment disorder with mixed anxiety and depressed mood Take 1 Tablet by mouth in the morning. 90 Tablet 3 4 Active Carvedilol 3.125 MG Oral Tablet (Coreg)Indications :HTN, goal below 130/80 Take 1 Tablet by mouth 2 times a day. 180 Tablet 3 4 Active Levothyroxine Sodium 50 MCG Oral Tablet (Levoxyl)Indicatio ns:Acquired hypothyroidism Take 1 Tablet by mouth in the morning. (at least 30 min prior to breakfast or other meds). 90 Tablet 3 4 Active oxyBUTYnin Chloride ER 10 MG Oral Tablet Extended Release 24 HourIndications:OA B (overactive bladder) Take 1 Tablet by mouth in the morning. Do not cut, crush or chew. 90 Tablet 3 4 Active Escitalopram Oxalate 20 MG Oral Tablet (Lexapro)Indicatio ns:Adjustment disorder with mixed anxiety and depressed mood Take 1 Tablet by mouth in the morning. 90 Tablet 3 4 Active NATURAL SUPPLEMENT GOLO -- for weight loss Active Losartan Potassium 100 MG Oral Tablet (Cozaar)Indication s:Palpitations,HTN , goal below 130/80 Take 1 Tablet by mouth in the morning. 90 Tablet 3 4 Active Ondansetron HCl 4 MG Oral Tablet Take 1 Tablet by mouth every 8 hours as needed for Nausea. 15 Tablet 4 Active Ioq-Xso-Tbjn-D Oral Tablet Take by mouth. Active Triamcinolone Acetonide 0.1 % External Cream (Aristocort) APPLY TO SITES ON ARMS AND LEGS TWICE DAILY X 2-3 WEEKS 80 g 1 4 Active hydroCHLOROthiazid e 12.5 MG Oral Capsule Take 1 Capsule by mouth in the morning. 30 Capsule 3 4 Active documented as of this encounter (statuses as of 02/28/2024) Active Problems Problem Noted Date Diagnosed Date [...] as of this encounter (statuses as of 02/28/2024) Immunizations Name Administration Dates Next Due COVID-19 mRNA, LNP-s, No Pre serve, 2-Dose Series (VetCentric) 03/31/2021,07/12/2020,06/21/2020 Covid-19, Mrna, Lnp-s, Pf, B ivalent, [...] 11/16/2022 Does the household have a re lar source of income? 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 ----- Message from Akua Rush sent at 02/28/2024 4:00 PM EST ----- Kidney function and electrolytes stable on recent labs. No changes necessary at this time. Please bring blood pressure readings to next follow-up visit. documented in this encounter Plan of Treatment Upcoming Encounters Date Type Department Care Team (Late st Contact Info) Description 04/16/2024 9:00 AM EST Office Visit Cardiology, [facility] [address] [place] [address] Akua Rush CRNP [address] [place] [address] 06/20/2024 8:00 AM EDT Office Visit Family Practice [facility] [address] [place] [address] Heather Wasserman MD [address] [place] [address] 07/17/2024 11:40 AM EDT Office Visit Sleep Disorders Ctr [facility] [address] [place] [phone] Zee Aggarwal DO [address] [place] [address] 09/22/2024 10:00 AM EDT Office Visit Gynecology/Obstetrics [facility] [address] [place] [address] Miley German PA-C [address] [place] [address] Health Maintenance Due Date Last Done Comments [...] Additional history exists Lipid Panel 05/02/2026 05/02/2021, 100 07/2019, 05/08/2011, Additional history exists Albumin/Creatinine Ratio 06/15/2026 06/16/2023, 082 11/2021 Diabetes Screening 02/27/2027 02/28/2024, 0 08/30/2023, 05/23/2023, [...] filedocumented as of this encounter Care Teams Wash Operator Relationship Specialty Start Date End Date Heather Wasserman MD [address] [place] [address] PCP - General Internal Medicine 06/13/23 documented as of this encounter
--- OUTSIDE RECORDS SUMMARY | 2024-03-14 07:55 | External Medical Summary | Summary of Care ---
Author Name Unknown Organization [facility] Address [address] [facility] [address] Phone [phone] Care Team Providers Care Tandem Mill Roller Name Role Phone Heather Wasserman MD Primary Care Provider Reason for Visit * Reason Comments Outpatient Testing Encounter Details Date Type Department Care Team (Late st Contact Info) Description 02/28/2024 1:50 PM EST Laboratory [facility], [facility] [address] [facility] [phone] [facility] 132 [place] [address] HTN, goal below 130/80 Allergies Active Allergy [...] needed for Nausea. 15 Tablet 4 Active Fct-Enu-Vglj-D Oral Tablet Take by mouth. 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 Not on file documented as of this encounter Plan of Treatment Upcoming Encounters Date Type Department Care Team (Late st Contact Info) Description 04/16/2024 9:00 AM EST Office Visit Cardiology, [facility] [address] [place] [address] Akua Rush CRNP [address] [place] [address] [place] [address] 06/20/2024 8:00 AM EDT Office Visit Family Practice [facility] [address] [place] [address] Heather Wasserman MD [address] [place] [address] 07/17/2024 11:40 AM EDT [facility] [address] [place] [phone] Zee Aggarwal DO [address] [place] [address] 09/22/2024 10:00 AM EDT Office Visit Gynecology/Obstetrics [facility] [address] [place] [address] Miley German PA-C [address] [place] [address] Pending Results Name Type Priority Associated Diagnoses Date /Time BASIC METABOLIC PANEL Lab Routine HTN, goal below 130/80 02/28/2024 1:50 PM EST Health Maintenance Due Date Last Done Comments [...] as of this encounter Visit Diagnoses Diagnosis HTN, goal below 130/80 Unspecified essential hypertension documented in this encounter Care Teams Tandem Mill Roller Relationship Specialty Start Date End Date Heather Wasserman MD [address] [place] [address] PCP - General Internal Medicine 06/13/23 documented as of this encounter
--- OUTSIDE RECORDS SUMMARY | 2024-03-14 07:55 | External Medical Summary | Summary of Care ---
Author Name Unknown Organization [facility] Address [address] [facility] [address] Phone [phone] Care Team Providers Care Architecture Department Chair Name Role Phone Heather Wasserman MD Primary Care Provider Reason for Visit * Reason Comments Follow Up Encounter Details Date Type Department Care Team (Late st Contact Info) Description 02/13/2024 9:00 AM EST Office Visit Cardiology, [facility] [address] [facility] [place] [address] Akua Rush CRNP [address] [facility] [place] [address] Palpitations*; HOANG (dyspnea on exertion); HTN, goal below 130/80 Allergies Active Allergy Reactions Criticality Noted Date Comments Lisinopril 05/09/2022 cough documented as of this encounter (statuses as of 02/13/2024) Medications Probiotic Acidophilus BioBeads Oral Capsule Take [...] 24 Active Carvedilol 3.125 MG Oral Tablet (Coreg)Indications :HTN, goal below 130/80 Take 1 Tablet by mouth 2 times a day. 180 Tablet 3 06/16/19 24 Active Levothyroxine Sodium 50 MCG Oral Tablet (Levoxyl)Indicatio ns:Acquired hypothyroidism Take 1 Tablet by mouth in the morning. (at least 30 min prior to breakfast or other meds). 90 Tablet 3 06/16/19 24 Active oxyBUTYnin Chloride [...] for Nausea. 15 Tablet 10/08/19 24 Active Fdq-Vya-Kyxi-D Oral Tablet Take by mouth. Active Triamcinolone Acetonide 0.1 % External Cream (Aristocort) APPLY TO SITES ON ARMS AND LEGS TWICE DAILY X 2-3 WEEKS 80 g 1 01/28/20 24 Active hydroCHLOROthiazid e 12.5 MG Oral Capsule Take 1 Capsule by mouth in the morning. 30 Capsule 3 02/13/20 24 Active Weight Loss Daily Multi Oral Tablet Take by mouth. 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 Repeat bloodwork to check kidney function at [facility] in 1 week. Check blood pressure at different times throughout the day with cuff at home for next 2 weeks and bring blood pressure readings to next follow-up visit. documented in this encounter Nursing Notes * Sima Gresham CMA - 02/13/2024 9:12 AM EST Examination Room: 1 Name: Alberta Reid Date of : (1960). Reason for Visit: follow up Interim Hospitalization(s): denies Problems/Concerns: LE edema R>L if she is on her feet for extended periods Chest Pain/SOB: HOANG [facility] Discussed: Yes [facility] is a way you can talk to your provider online through e-mail. Would you like to sign up? I can activate it for you? ALREADY ACTIVE Patient was instructed to not get up on the exam table until directed and assisted by their provider; patient is to remain seated in the chair/ wheelchair/ exam table for fall prevention and safety reasons. Patient is aware to have assistance to step down off exam table with personnel. Patient voiced full comprehension of instructions. documented in this encounter Plan of Treatment Upcoming Encounters Date Type Department Care Team (Late st Contact Info) Description 04/16/2024 9:00 AM EST Office Visit Cardiology, [facility] [address] [facility] [place] [address] Akua Rush CRNP [address] [place] [address] 06/20/2024 8:00 AM EDT Office Visit Family Practice [facility] [address] [place] [address] Heather Wasserman MD [address] [place] [address] 07/17/2024 11:40 AM EDT Office Visit Sleep Disorders Ctr [facility] [address] [place] [phone] Zee Aggarwal DO [address] [place] [address] 09/22/2024 10:00 AM EDT Office Visit Gynecology/Obstetrics [facility] [address] [place] [address] Miley German PA-C [address] [place] [address] Scheduled Orders Name Type Priority Associated Diagnoses Orde r Schedule EKG EKG Routine Palpitations Ordered: 02/13/2024 BASIC METABOLIC PANEL Lab Routine HTN, goal below 130/80 Expected: 02/20/2024, Expires: 02/12/2025 Health Maintenance Due Date Last Done Comments [...] as of this encounter Visit Diagnoses Diagnosis Palpitations- Primary HOANG (dyspnea on exertion) Other dyspnea and respiratory abnormality HTN, goal below 130/80 Unspecified essential hypertension documented in this encounter Care Teams Architecture Department Chair Relationship Specialty Start Date End Date Heather Wasserman MD [address] [place] [address] PCP - General Internal Medicine 06/13/23 documented as of this encounter
--- OUTSIDE RECORDS SUMMARY | 2024-03-14 07:55 | External Medical Summary | Summary of Care ---
Author Name Unknown Organization [facility] Address [address] [facility] [address] Phone [phone] Care Team Providers Care Transitional Care Manager Name Role Phone Heather Wasserman MD Primary Care Provider Reason for Visit * Reason Onset Date Comments Durable Medical Equipment 11/30/2023 CPAP Encounter Details Date Type Department Care Team (Late st Contact Info) Description 11/30/2023 Telephone Sleep Disorders Ctr [facility] [address] [place] [phone] Zee Aggarwal [address] [place] [address] Durable Medical Equipment (CPAP ) Allergies Active Allergy Reactions Criticality Noted Date Comments Lisinopril 05/09/2022 cough documented as of this encounter (statuses as of 11/30/2023) Medications Medication Sig Dispensed Refills Start Date [...] Additional Information Patient not taking.Reported on 11/29/2023 Fau-Cze-Bwfp-D Oral Tablet Take by mouth. Active Weight Loss Daily Multi Oral Tablet Take by mouth. Act abhijeet documented as of this encounter (statuses as of 11/30/2023) Active Problems Problem Noted Date Diagnosed Date [...] as of this encounter (statuses as of 11/30/2023) Immunizations Name Administration Dates Next Due COVID-19 mRNA, LNP-s, No Pre serve, 2-Dose Series ([employer]) 03/31/2021,07/12/2020,06/21/2020 Covid-19, Mrna, Lnp-s, Pf, B ivalent, 30 Mcg, IM, 12 yrs and above (Pfizer) 12/28/2021 Seasonal Influenza Virus Vac cine, Unspecified [...] No 11/16/2022 Does the household have a [facility] source of income? (Household - for ages [...] encounter Miscellaneous Notes * Telephone Encounter - Nory Tenorio OSA - 11/30/2023 9:08 AM EDT DME order for CPAP submitted to [facility]. documented in this encounter Plan of Treatment Upcoming Encounters Date Type Department Care Team (Late st Contact Info) Description 02/13/2024 9:00 AM EST Office Visit Cardiology, [facility] [address] [facility] [place] [address] Akua Rush CRNP [address] [place] [address] 06/20/2024 8:00 AM EDT Office Visit Family Practice [facility] [address] [place] [address] Heather Wasserman MD [address] [place] [address] 07/17/2024 11:40 AM EDT Office Visit Sleep Disorders Ctr [facility] [address] [place] [phone] Zee Aggarwal DO [address] [place] [address] 09/22/2024 10:00 AM EDT Office Visit Gynecology/Obstetrics [facility] [address] [place] [address] Miley German PA-C [address] [place] [address] Health Maintenance Due Date Last Done Comments [...] filedocumented as of this encounter Care Teams Transitional Care Manager Relationship Specialty Start Date End Date Heather Wasserman MD [address] [place] [address] PCP - General Internal Medicine 06/13/23 documented as of this encounter
--- OUTSIDE RECORDS SUMMARY | 2024-03-14 07:55 | External Medical Summary | Summary of Care ---
Author Name Unknown Organization [facility] Address [address] [place] [address] Phone [phone] Care Team Providers Care Street Engineer Name Role Phone Heather Wasserman MD Primary Care Provider Reason for Visit * Reason Comments eRx-Medication Refill Encounter Details Date Type Department Care Team (Late st Contact Info) Description 01/26/2024 Refill Dermatology [facility] [address] [place] [address] Suzan Can PA-C [address] [place], [place] [phone] Allergies Active Allergy Reactions Criticality Noted Date Comments Lisinopril 05/09/2022 cough documented as of this encounter (statuses as of 01/28/2024) Medications Probiotic Acidophilus BioBeads Oral Capsule Take 1 Capsule by mouth in the morning and 1 Capsule at noon and 1 Capsule in the evening. Take with meals. Active buPROPion HCl ER (XL) 300 MG Oral Tablet Extended Release 24 Hour (Wellbutrin XL)Indications:Ad justment disorder with mixed anxiety and depressed mood Take 1 Tablet by mouth in the morning. 90 Tablet 3 024 Active Carvedilol 3.125 MG Oral Tablet (Coreg)Indication s:HTN, goal below 130/80 Take 1 Tablet by mouth 2 times a day. 180 Tablet 3 Active Levothyroxine Sodium 50 MCG Oral Tablet (Levoxyl)Indicati ons:Acquired hypothyroidism Take 1 Tablet by mouth in the morning. (at least 30 min prior to breakfast or other meds). 90 Tablet 3 Active oxyBUTYnin Chloride ER 10 MG Oral Tablet Extended Release 24 HourIndications:O AB (overactive bladder) Take 1 Tablet by mouth in the morning. Do not cut, crush or chew. 90 Tablet 3 Active Escitalopram Oxalate 20 MG Oral Tablet (Lexapro)Indicati ons:Adjustment disorder with mixed anxiety and depressed mood Take 1 Tablet by mouth in the morning. 90 Tablet 3 Active NATURAL SUPPLEMENT GOLO -- for weight loss Active Losartan Potassium 100 MG Oral Tablet (Cozaar)Indicatio ns:Palpitations,H TN, goal below 130/80 Take 1 Tablet by mouth in the morning. 90 Tablet 3 Active Ondansetron HCl 4 MG Oral Tablet Take 1 Tablet by mouth every 8 hours as needed for Nausea. 15 Tablet Active Additional Information Patient not taking.Reported on 11/29/2023 Nva-Jdi-Rkmn-D Oral Tablet Take by mouth. Act abhijeet Weight Loss Daily Multi Oral Tablet Take by mouth. Active Triamcinolone Acetonide 0.1 % External Cream (Aristocort) APPLY TO SITES ON ARMS AND LEGS TWICE DAILY X 2-3 WEEKS 80 g 1 Active Triamcinolone Acetonide 0.1 % External Cream (Aristocort) Apply to sites on arms and legs twice daily x 2-3 weeks 80 g 1 024 2023 Discontinued documented as of this encounter (statuses as of 01/28/2024) Active Problems Problem Noted Date Diagnosed Date [...] as of this encounter (statuses as of 01/28/2024) Immunizations Name Administration Dates Next Due COVID-19 mRNA, LNP-s, No Pre serve, 2-Dose Series ([employer] ([employer])) 03/31/2021,07/12/2020,06/21/2020 Covid-19, Mrna, Lnp-s, Pf, B ivalent, [...] 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 Not on file Not on file documented as of this encounter Miscellaneous Notes * Telephone Encounter - Rc Murdock PA-C - 01/28/2024 9:58 AM EST Signed Prescriptions: Disp Refills Triamcinolone Acetonide 0.1 % External Cre*80 g 1 Sig: APPLY TO SITES ON ARMS AND LEGS TWICE DAILY X 2-3 WEEKSAuthorizing Provider: RC MURDOCK documented in this encounter Plan of Treatment Upcoming Encounters Date Type Department Care Team (Late st Contact Info) Description 02/13/2024 9:00 AM EST Office Visit Cardiology, [facility] [address] [place] [address] Akua Rush CRNP [address] [place] [address] [place] [address] 06/20/2024 8:00 AM EDT Office Visit Family Practice [facility] [address] [place] [address] Heather Wasserman MD [address] [place] [address] 07/17/2024 11:40 AM EDT Office Visit Sleep Disorders Ctr [facility] [address] [place] [phone] Zee Aggarwal DO [address] [place] [address] 09/22/2024 10:00 AM EDT Office Visit Gynecology/Obstetrics [facility] [address] [place] [address] Miley German PA-C [address] [place] [address] Health Maintenance Due Date Last Done Comments [...] filedocumented as of this encounter Care Teams Street Engineer Relationship Specialty Start Date End Date Heather Wasserman MD [address] [place] [address] PCP - General Internal Medicine 06/13/23 documented as of this encounter
--- OUTSIDE RECORDS SUMMARY | 2024-03-14 07:56 | External Medical Summary ---
Author Name Unknown Address Unknown Organization [facility] [employer] [address] [place] [address] Laboratory Report Ordering Provider Test Date Status YOKASTAELLISHORVATH 10/12/2023 09:01:00 Final Observation Date Value Abnormality Reference (Units ) Status Creatinine 10/12/2023 09:01:00 1.0 0.5-1.0 (mg/dL) Final Glomerular filtration rate/1.73 sq M.predicted [Volume Rate/Area] in Serum, Plasma or Blood by Creatinine-based formula (CKD-EPI) 10/12/2023 09:01:00 63 >=60 (mL/min) Final eGFR is calculated based on the CKD-EPI 2020 equation. Performing Location [facility] [employer] [address] [place] [address]
--- OUTSIDE RECORDS SUMMARY | 2024-03-14 07:56 | External Medical Summary | Summary of Care ---
Author Name Unknown Organization [facility] Address [address] [place] [address] Phone [phone] Care Team Providers Care Retail Salesman Name Role Phone Heather Wasserman MD Primary Care Provider Reason for Visit * Reason Comments Acute Intermittent episode s of room spinning vertigo with nausea and vomiting x 2 months but worsening. Blood pressure was elevated at the time-171/105 this morning. No chest pain or shortness of breath. Encounter Details Date Type Department Care Team (Late st Contact Info) Description 10/08/2023 1:00 PM EDT Office Visit Family [facility] [address] [place] [address] Heather Wasserman MD [address] [place] [address] Dizziness*; Meningioma (HCC) Allergies Active Allergy Reactions Criticality Noted Date Comments Lisinopril 05/09/2022 cough documented as of this encounter (statuses as of 10/08/2023) Medications Medication Sig Dispensed Refills Start Date [...] as of this encounter (statuses as of 10/08/2023) Active Problems Problem Noted Date Diagnosed Date [...] as of this encounter (statuses as of 10/08/2023) Immunizations Name Administration Dates Next Due COVID-19 mRNA, LNP-s, No Pre serve, 2-Dose Series (Pfizer) 03/31/2021,07/12/2020,06/21/2020 Covid-19, Mrna, Lnp-s, Pf, B ivalent, [...] No 11/16/2022 Does the household have a [facility] source of income? (Household - for [...] Sign Reading Time Taken Comments Blood Pressure 148/90 10/08/2023 1:00 PM EDT Pulse 62 10/08/2023 1:00 PM EDT Temperature - - Respiratory Rate - - Oxygen Saturation 96% 10/08/2023 1:00 PM EDT Inhaled Oxygen Concentration - - Weight 97.7 kg (215 lb 6.4 oz) 10/08/2023 1:00 P M EDT Height - - Body Mass Index 36.84 11/16/2022 4:24 PM EDT documented in this encounter Progress Notes * Heather Wasserman MD - 10/08/2023 1:35 PM EDT Images from the original note were not included. History of Present Illness Alberta Reid is a 63 year old female that presents for Acute (Intermittent episodes of room spinning vertigo with nausea and vomiting x 2 months but worsening. Blood pressure was elevated at the time-171/105 this morning. No chest pain or shortness of breath. ) Nurse triage note reviewed. Saw Cardiology in July - doubled to 100 mg daily Had been getting brief episodes of pre-syncopal dizziness 2x/wk that lasted a few minutes. Today had different kind of dizziness. Got up, went to bathroom and was standing at the sink. Then went to bed. Position didn't matter, room spinning with eyes open/closed, position didn't matter. Super sweaty. Crawled to bathroom, vomited 3-4x. Was at their second house. Was outside all day yesterday, burning brush and going yardwork in the heat. Dizziness was bad for a couple hours. Now feels foggy, medicine head, could get dizzy at any minute. Hasn't had much to drink, ate a little bit today. 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 Says workup was negative for MS. Hasn't seen him since before REJI. Records of this visit and brain imaging from [facility] not available at time of visit. Nicotine: none Cannabis: none Alcohol: class of wine Sunday night, none since. Current medications and allergies reviewed. Past medical history and problem list reviewed. Physical Exam Vitals: 10/08/23 1300 Pulse: 62 SpO2: 96% BP: 148/90 BP Readings from Last 3 Encounters: 10/08/23 148/90 07/27/23 140/78 06/16/23 140/82 Wt Readings from Last 3 Encounters: 10/08/23 97.7 kg (215 lb 6.4 oz) 07/27/23 95.8 kg (211 lb 4 oz) 06/16/23 97.9 kg (215 lb 14.2 oz) Physical Exam Vitals and nursing note reviewed. Constitutional: General: She is not in acute distress. Appearance: Normal appearance. HENT: Head: Normocephalic and atraumatic. Right Ear: Tympanic membrane, ear canal and external ear normal. There is no impacted cerumen. Left Ear: Tympanic membrane, ear canal and external ear normal. There is no impacted cerumen. Mouth/Throat: Mouth: Mucous membranes are moist. Pharynx: Oropharynx is clear. No oropharyngeal exudate. Eyes: General: No scleral icterus. Extraocular Movements: Extraocular movements intact. Pupils: Pupils are equal, round, and reactive to light. Cardiovascular: Rate and Rhythm: Normal rate and regular rhythm. Heart sounds: No murmur heard. Pulmonary: Effort: Pulmonary effort is normal. Breath sounds: Normal breath sounds. Neurological: Mental Status: She is alert and oriented to person, place, and time. Cranial Nerves: No cranial nerve deficit. Sensory: No sensory deficit. Motor: No weakness. Coordination: Coordination normal. Deep Tendon Reflexes: Reflexes normal. Comments: Falls to left with Romberg Cannot do tandem gait Psychiatric: Mood and Affect: Mood normal. Behavior: Behavior normal. I have reviewed the following results: BMP and Albumin / Creatinine Ratio, Urine Assessment and Plan Dizziness New onset of more severe dizziness. Reports history of "brain tumor" with unclear details. PositiveRomberg and cannot do tandem walk. Will send for urgent brain imaging. And will attempt to get records from [facility]. (Ordered in separate encounter) - CREATININE; Future Meningioma (HCC) - CREATININE; Future Wrap-Up Time: I spent a total of 30-39 minutes (exact time 35 mins) on the date of service in preparation, delivery, and documentation of the care provided to Alberta Reid excluding any time spent in the performance of separately billed services. documented in this encounter Plan of Treatment Upcoming Encounters Date Type Department Care Team (Late st Contact Info) Description 02/06/2024 8:00 AM EST Office Visit Cardiology, [facility] 132 [facility] [place] [address] Dolly Petersen CRNP [address] [facility] [place] [address] 03/06/2024 11:40 AM EST Office Visit Sleep Disorders Ctr [facility] [address] [place] [phone] Zee Aggarwal DO [address] [facility] [place] [address] 06/20/2024 8:00 AM EDT Office Visit Family Practice [facility] [address] [place] [address] Heather Wasserman MD [address] [place] [address] Scheduled Orders Name Type Priority Associated Diagnoses Orde r Schedule CREATININE Lab Routine Dizziness Meningioma (HCC) Expected: 10/08/2023, Expires: 10/07/2024 Health Maintenance Due Date Last Done Comments [...] 06/13/2023, 06/03, 06/19/2022, Additional history exists GFR 08/29/2024 08/30/2023, 05/04, 03/14/2022, Additional history exists Lipid Panel 05/02/2026 05/02/2021, [...] Meningioma (HCC) Benign neoplasm of cerebral meninges documented in this encounter Care Teams Retail Salesman Relationship Specialty Start Date End Date Heather Wasserman MD [address] [facility] [place] [address] PCP - General Internal Medicine 06/13/23 documented as of this encounter
--- OUTSIDE RECORDS SUMMARY | 2024-03-14 07:56 | External Medical Summary | Summary of Care ---
Author Name Unknown Organization [facility] Address [address] [facility] [address] Phone [phone] Care Team Providers Care Poultry Raiser Name Role Phone Heather Wasserman MD Primary Care Provider Reason for Visit * Reason Comments Outpatient Testing Encounter Details Date Type Department Care Team (Late st Contact Info) Description 10/12/2023 9:00 AM EDT [facility], [facility] [address] [facility] [phone] [facility] [address] [facility] [address] [employer] Other*[id number]; Dizziness; Meningioma (HCC) Allergies Active Allergy Reactions Criticality Noted Date Comments Lisinopril 05/09/2022 cough documented as of this encounter (statuses as of 10/12/2023) Medications Medication Sig Dispensed Refills Start Date [...] as of this encounter (statuses as of 10/12/2023) Active Problems Problem Noted Date Diagnosed Date [...] as of this encounter (statuses as of 10/12/2023) Immunizations Name Administration Dates Next Due COVID-19 mRNA, LNP-s, No Pre serve, 2-Dose Series ([employer]) 03/31/2021,07/12/2020,06/21/2020 Covid-19, Mrna, Lnp-s, Pf, B ivalent, [...] 18 years and over) Not on file 3 Are you (or your family) imer eless [...] 02/06/2024 8:00 AM EST Office Visit Cardiology, [facility] [address] [place] [address] Dolly Petersen CRNP [address] [place] [address] 03/06/2024 11:40 AM EST Office Visit Sleep Disorders Ctr [facility] [address] [place] [phone] Zee Aggarwal DO [address] [place] [address] 06/20/2024 8:00 AM EDT Office Visit Family Practice [facility] [address] [place] [address] Heather Wasserman MD [address] [place] [address] Pending Results Name Type Priority Associated Diagnoses Date /Time MYCODE SUBSEQUENT ADULT Lab Routine [employer] Other*[id number] 10/12/2023 9:01 AM EDT CREATININE Lab Routine Dizziness Meningioma (HCC) 10/12/2023 9:01 AM EDT MYCODE SST1 Lab Routine [employer] Other*[id number] 10/12/2023 9:01 AM EDT MYCODE SST2 Lab Routine [employer] Other*[id number] 10/12/2023 9:01 AM EDT Health Maintenance Due Date Last Done Comments [...] as of this encounter Visit Diagnoses Diagnosis [employer] Other*[id number] Dizziness Dizziness and giddiness Meningioma (HCC) Benign neoplasm of cerebral meninges documented in this encounter Care Teams Poultry Raiser Relationship Specialty Start Date End Date Heather Wasserman MD [address] [facility] [place] [address] PCP - General Internal Medicine 06/13/23 documented as of this encounter
--- OUTSIDE RECORDS SUMMARY | 2024-03-14 07:56 | External Medical Summary | Summary of Care ---
Author Name Unknown Organization [facility] Address [address] [address] Phone [phone] Care Team Providers Care Municipal Court Magistrate Name Role Phone Heather Wasserman MD Primary Care Provider Reason for Referral * Precert (Within 24 hrs (call dept; emergent)) - Authorized Specialty Diagnoses / Procedures Referred By Contac t Referred To Contact Radiology Diagnoses Dizziness Meningioma (HCC) Procedures CT HEAD/BRAIN W WO CONTRAST Heather Wasserman MD [address] [place] [id number] Referral ID Status Reason Start Date Expiration Date V isits Requested Visits Authorized [id number] Authorized Precert 10/08/2023 04/05/2024 [id number] Encounter Details Date Type Department Care Team (Late st Contact Info) Description 10/08/[address] [facility] [address] [place] [address] Heather Wasserman MD [address] [place] [address] Allergies Active Allergy Reactions Criticality Noted Date Comments Lisinopril 05/09/2022 cough documented as of this encounter (statuses as of 10/11/2023) Medications Medication Sig Dispensed Refills Start Date [...] as of this encounter (statuses as of 10/11/2023) Active Problems Problem Noted Date Diagnosed Date [...] as of this encounter (statuses as of 10/11/2023) Immunizations Name Administration Dates Next Due COVID-19 mRNA, LNP-s, No Pre serve, 2-Dose Series ([employer]) 03/31/2021,07/12/2020,06/21/2020 Covid-19, Mrna, Lnp-s, Pf, B ivalent, 30 Mcg, IM, 12 yrs and above ([employer]) 12/28/2021 Seasonal Influenza Virus Vac cine, Unspecified [...] No 11/16/2022 Does the household have a [facility] source of income? (Household - for ages [...] encounter Miscellaneous Notes * Telephone Encounter - Heather Wasserman MD - 10/08/2023 2:28 PM EDT signed documented in this encounter Plan of Treatment Upcoming Encounters Date Type Department Care Team (Late st Contact Info) Description 10/12/2023 9:00 AM EDT Laboratory Laboratory, [address] [place] [phone] [facility] [address] [place] [address] 02/06/2024 8:00 AM EST Office Visit Cardiology, [facility] [address] [place] [address] Dolly Petersen CRNP [address] [place] [address] 03/06/2024 11:40 AM EST Office Visit Sleep Disorders Ctr [facility] [address] [facility] [place] [phone] Zee Aggarwal DO [address] [place] [address] 06/20/2024 8:00 AM EDT Office Visit Family Practice [facility] [address] [place] [address] Heather Wasserman MD [address] [place] [address] Scheduled Orders Name Type Priority Associated Diagnoses Orde r Schedule CT HEAD/BRAIN W WO CONTRAST Medical Imaging STAT Dizziness Meningioma (HCC) Ordered: 10/08/2023 Health Maintenance Due Date Last Done Comments [...] meninges documented in this encounter Care Teams Municipal Court Magistrate Relationship Specialty Start Date End Date Heather Wasserman MD [address] [place] [address] PCP - General Internal Medicine 06/13/23 documented as of this encounter
--- OUTSIDE RECORDS SUMMARY | 2024-03-14 07:56 | External Medical Summary | Summary of Care ---
Author Name Unknown Organization [facility] Address [address] [facility] [address] Phone [phone] Care Team Providers Care Dental Receptionist Name Role Phone Heather Wasserman MD Primary Care Provider Reason for Referral * Precert (Within 24 hrs (call dept; emergent)) - Authorized Specialty Diagnoses / Procedures Referred By Contac t Referred To Contact Radiology Diagnoses Dizziness Meningioma (HCC) Procedures CT HEAD/BRAIN W WO CONTRAST Heather Wasserman MD [address] [place] [address] Referral ID Status Reason Start Date Expiration Date V isits Requested Visits Authorized [id number] Authorized Precert 10/08/2023 04/05/2024 [id number] Encounter Details Date Type Department Care Team (Late st Contact Info) Description 10/08/2023 Telephone Family Practice [facility] [address] [place] [address] Heather Wasserman MD [address] [place] [address] Allergies Active Allergy Reactions Criticality Noted Date Comments Lisinopril 05/09/2022 cough documented as of this encounter (statuses as of 10/09/2023) Medications Medication Sig Dispensed Refills Start Date [...] as of this encounter (statuses as of 10/09/2023) Active Problems Problem Noted Date Diagnosed Date [...] as of this encounter (statuses as of 10/09/2023) Immunizations Name Administration Dates Next Due COVID-19 mRNA, LNP-s, No Pre serve, 2-Dose Series ([employer]) 03/31/2021,07/12/2020,06/21/2020 Covid-19, Mrna, Lnp-s, Pf, B ivalent, 30 Mcg, IM, 12 yrs and above ([employer]) 12/28/2021 Seasonal Influenza Virus Vac cine, Unspecified [...] No 11/16/2022 Does the household have a [facility] source of income? (Household - for ages [...] 02/06/2024 8:00 AM EST Office Visit Cardiology, [address] [place] [address] Dolly Petersen CRNP [address] [place] [address] 03/06/2024 11:40 AM EST Office Visit Sleep Disorders Ctr [facility] [address] [place] [phone] Zee Aggarwal DO [address] [place] [address] 06/20/2024 8:00 AM EDT Office Visit Family Practice [facility] [address] [place] [address] Heather Wasserman MD [address] [place] [address] Scheduled Orders Name Type Priority Associated Diagnoses [...] meninges documented in this encounter Care Teams Dental Receptionist Relationship Specialty Start Date End Date Heather Wasserman MD [address] [place] [address] PCP - General Internal Medicine 06/13/23 documented as of this encounter
--- OUTSIDE RECORDS SUMMARY | 2024-03-14 07:56 | External Medical Summary | Summary of Care ---
Author Name Unknown Organization [facility] Address [address] [address] Phone [phone] Care Team Providers Care Energy Project Engineer Name Role Phone Heather Wasserman MD Primary Care Provider Reason for Referral * Precert (Within 24 hrs (call dept; emergent)) - Authorized Specialty Diagnoses / Procedures Referred By Contac t Referred To Contact Radiology Diagnoses Dizziness Meningioma (HCC) Procedures CT HEAD/BRAIN W WO CONTRAST Heather Wasserman MD [address] [employer] [place] [address] Referral ID Status Reason Start Date Expiration Date V isits Requested Visits Authorized [id number] Authorized Precert 10/08/2023 04/05/2024 [id number] Encounter Details Date Type Department Care Team (Late st Contact Info) Description 10/08/2023 Telephone Family Practice [facility] [address] [place] [address] Heather Wasserman MD [address] [place] [address] Allergies Active Allergy Reactions Criticality Noted Date [...] mRNA, LNP-s, No Pre serve, 2-Dose Series ([employer]) 03/31/2021,07/12/2020,06/21/2020 Covid-19, Mrna, Lnp-s, Pf, B ivalent, 30 Mcg, IM, 12 yrs and above ([employer]) 12/28/2021 Seasonal Influenza Virus Vac cine, Unspecified [...] No 11/16/2022 Does the household have a [facility] source of income? (Household - for ages [...] 02/06/2024 8:00 AM EST Office Visit Cardiology, [address] [place] [address] Dolly Petersen CRNP [address] [place] [address] 03/06/2024 11:40 AM EST Office Visit Sleep Disorders Ctr [facility] [address] [place] [phone] Zee Aggarwal DO [address] [place] [address] 06/20/2024 8:00 AM EDT Office Visit Family Practice [facility] [address] [place] [address] Heather Wasserman MD [address] [place] [address] Scheduled Orders Name Type Priority Associated Diagnoses [...] meninges documented in this encounter Care Teams Energy Project Engineer Relationship Specialty Start Date End Date Heather Wasserman MD [address] [place] [address] PCP - General Internal Medicine 06/13/23 documented as of this encounter
--- OUTSIDE RECORDS SUMMARY | 2024-03-14 07:56 | External Medical Summary ---
Author Name Unknown Address Unknown Organization [facility] - [address] [place] [address] Laboratory Report Ordering Provider Test Date Status MAYA MALLOY 10/12/2023 09:01:00 Final Observation Date Value Abnormality Reference (Units ) Status MYCODE SPECIMEN-SST 10/12/2023 09:01:00 Freezing of extracted DNA, whole blood and/or serum. Final Performing Location [facility] - [address] [place] [address]
--- OUTSIDE RECORDS SUMMARY | 2024-03-14 07:56 | External Medical Summary | Summary of Care ---
Author Name Unknown Organization [facility] Address [address] [facility] [place] [address] Phone [phone] Care Team Providers Care Hay Sorter Name Role Phone Heather Wasserman MD Primary Care Provider Encounter Details Date Type Department Care Team (Late st Contact Info) Description 10/11/2023 Orders Only PATIENT PORTAL DO NOT DELETE THIS DEPT USED BY [place] [id number] Allergies Active Allergy Reactions Criticality Noted Date [...] mRNA, LNP-s, No Pre serve, 2-Dose Series ([employer]to) 03/31/2021,07/12/2020,06/21/2020 Covid-19, Mrna, Lnp-s, Pf, B ivalent, 30 Mcg, IM, 12 yrs and above ([employer]to) 12/28/2021 Seasonal Influenza Virus Vac cine, Unspecified [...] money to buy more. Never true 11/17/19 Within the past 12 months, t he [...] 02/06/2024 8:00 AM EST Office Visit Cardiology, [facility] [address] [place] [address] Dolly Petersen CRNP [address] [place] [address] 03/06/2024 11:40 AM EST Office Visit Sleep Disorders Ctr [facility] [address] [place] [phone] Zee Aggarwal DO [address] [place] [address] 06/20/2024 8:00 AM EDT Office Visit Family Practice [facility] [address] [place] [address] Heather Wasserman MD [address] [place] [address] Health Maintenance Due Date Last Done Comments [...] filedocumented as of this encounter Care Teams Hay Sorter Relationship Specialty Start Date End Date Heather Wasserman MD [address] [place] [address] PCP - General Internal Medicine 06/13/23 documented as of this encounter
--- OUTSIDE RECORDS SUMMARY | 2024-03-14 07:56 | External Medical Summary ---
Author Name Unknown Address Unknown Organization [facility] - [address] [place] [address] Laboratory Report Ordering Provider Test Date Status MAYA MALLOY 10/12/2023 09:01:00 Final Observation Date Value Abnormality Reference (Units ) Status MYCODE SPECIMEN-SST 10/12/2023 09:01:00 Freezing of extracted DNA, whole blood and/or serum. Final Performing Location [facility] - [address] [place] [address]
--- OUTSIDE RECORDS SUMMARY | 2024-03-14 07:56 | External Medical Summary | Summary of Care ---
Author Name Unknown Organization [facility] Address [address] [place] [address] Phone [phone] Care Team Providers Care Kidney Trimmer Name Role Phone Heather Wasserman MD Primary Care Provider Reason for Referral * Evaluate & Treat - Unlimited Visits (Within 30 days (routine)) - Authorized Specialty Diagnoses / Procedures Referred By Kaila bauman Referred To Contact Neurology Diagnoses Dizziness Abnormal neurological exam Heather Wasserman MD [address] [place] [address] Referral ID Status Reason Start Date Expiration Date Visits Requested Visits Authorized [id number] Authorized Specialty Services Required 10/13/2023 999 [id number] Question Answer Referral Priority Within 30 days (routine) Where should this appointment be scheduled? External - [facility] Neurology Is this referral being placed for insurance purposes ONLY No, patient needs appointment [facility] NEUROLOGY REFERRAL QUESTIONS Other Conditions Comments Previous patient of Dr Chau, past ?demyelinating disease. Two recent falls where lost balance for unclear reason. Intermittent dizziness. Abnormal Romberg. * Precert (Within 24 hrs (call dept; emergent)) - Authorized Specialty Diagnoses / Procedures Referred By Kaila bauman Referred To Contact Radiology Diagnoses Dizziness Meningioma (HCC) Procedures CT HEAD/BRAIN W WO CONTRAST Heather Wasserman MD [address] [place] [address] Referral ID Status Reason Start Date Expiration Date V isits Requested Visits Authorized [id number] Authorized Precert 10/08/2023 04/05/2024 [id number] Encounter Details Date Type Department Care Team (Late st Contact Info) Description 10/08/2023 Telephone Family [facility] [address] [place] [address] Heather Wasserman MD [address] [place] [address] Allergies Active Allergy Reactions Criticality Noted Date [...] mRNA, LNP-s, No Pre serve, 2-Dose Series ([employer] 03/31/2021,07/12/2020,06/21/2020 Covid-19, Mrna, Lnp-s, Pf, B ivalent, 30 Mcg, IM, 12 yrs and above ([employer] 12/28/2021 Seasonal Influenza Virus Vac cine, Unspecified [...] as of this encounter Miscellaneous Notes * Addendum Note - Heather Wasserman MD - 10/13/2023 2:15 PM EDTAddended by: HEATHER WASSERMAN on: 10/13/2023 02:15 PM Modules accepted: Orders * Telephone Encounter - Heather Wasserman MD - 10/13/2023 2:15 PM EDT Neuro referral, [facility]. * Telephone Encounter - Heather Wasserman MD - 10/08/2023 2:28 PM EDT signed documented in this encounter Plan of Treatment Upcoming Encounters Date Type Department Care Team (Late st Contact Info) Description 02/06/2024 8:00 AM EST Office Visit Cardiology, [facility] [address] [place] [address] Dolly Petersen CRNP [address] [place] [address] 03/06/2024 11:40 AM EST Office Visit Sleep Disorders Ctr [facility] [address] [place] [phone] Zee Aggarwal DO [address] [place] [address] 06/20/2024 8:00 AM EDT Office Visit Family Practice [facility] [address] [place] [address] Heather Wasserman MD [address] [place] [address] Scheduled Orders Name Type Priority Associated Diagnoses [...] systems documented in this encounter Care Teams Kidney Trimmer Relationship Specialty Start Date End Date Heather Wasserman MD [address] [place] [address] PCP - General Internal Medicine 06/13/23 documented as of this encounter
--- OUTSIDE RECORDS SUMMARY | 2024-03-14 07:56 | External Medical Summary | Summary of Care ---
Author Name Unknown Organization [facility] Address [address] [facility] [address] Phone [phone] Care Team Providers Care Manufacturing Supervisor Name Role Phone Heather Wasserman MD Primary Care Provider Reason for Referral * Precert (Within 24 hrs (call dept; emergent)) - Authorized Specialty Diagnoses / Procedures Referred By Contac t Referred To Contact Radiology Diagnoses Dizziness Meningioma (HCC) Procedures CT HEAD/BRAIN W WO CONTRAST Heather Wasserman MD [email or web address] [place] [address] Referral ID Status Reason Start Date Expiration Date V isits Requested Visits Authorized [id number] Authorized Precert 10/08/2023 04/05/2024 [id number] Encounter Details Date Type Department Care Team (Late st Contact Info) Description 10/08/2023 Telephone Family Practice [facility] [address] [place] [address] Heather Wasserman MD [address] [place] [address] Allergies Active Allergy Reactions Criticality Noted Date [...] mRNA, LNP-s, No Pre serve, 2-Dose Series ([employer]) 03/31/2021,07/12/2020,06/21/2020 Covid-19, Mrna, Lnp-s, Pf, B ivalent, 30 Mcg, IM, 12 yrs and above ([employer]) 12/28/2021 Seasonal Influenza Virus Vac cine, Unspecified [...] No 11/16/2022 Does the household have a [facility] source of income? (Household - for ages [...] 02/06/2024 8:00 AM EST Office Visit Cardiology, [address] [place] [address] Dolly Petersen CRNP [address] [place] [address] 03/06/2024 11:40 AM EST Office Visit Sleep Disorders Ctr [facility] [address] [place] [phone] Zee Aggarwal DO [address] [place] [address] 06/20/2024 8:00 AM EDT Office Visit Family Practice [facility] [address] [place] [address] Heather Wasserman MD [address] [place] [address] Scheduled Orders Name Type Priority Associated Diagnoses [...] meninges documented in this encounter Care Teams Manufacturing Supervisor Relationship Specialty Start Date End Date Heather Wasserman MD [address] [place] [address] PCP - General Internal Medicine 06/13/23 documented as of this encounter
[2024-03-14] MEDS: buPROPion XL 300 MG TABCR PO SCH (08:09)
[2024-03-14] MEDS: carvediloL 3.125 MG TAB PO SCH (08:09)
[2024-03-14] MEDS: LOSARTAN POTASSIUM 50 MG TAB PO SCH (08:09)
[2024-03-14] MEDS: OXYBUTYNIN CHLORIDE XL 5 MG TABCR PO SCH (08:09)
[2024-03-14] MEDS: hydroCHLOROthiazide 25 MG TAB PO SCH (08:09)
[2024-03-14] MEDS: ADVANCED PROBIOTIC 625 MG CAPSULE PO SCH (08:10)
[2024-03-14] MEDS: CEROVITE ADV FORMULA TAB PO SCH (08:10)
--- NOTE | 2024-03-14 08:44 | Cardiology Consultation ---
Date of Consultation March 14, 2024 Assessment & Plan (1) Pneumonia: (2) Right-sided chest pain: (3) Pleural effusion on right: Plan 63-year-old female present to the emergency department with atypical right-sided chest discomfort. ECG unremarkable. High-sensitivity troponins within normal limits. Findings do not suggest acute coronary syndrome. Will review bedside 2D transthoracic echocardiogram when available. I suspect symptoms related to upper respiratory tract infection/bronchitis/possible right lower lobe pneumonia with associated pleural effusion. Consider assessment of atypical pneumonia (mycoplasma, Legionella). Empiric antibiotic as per internal medicine. Thank you for allow me to participate in the care of your patient. History of Present Illness Reason for Consultation: Chest pain Requesting Physician: Dr. Pickering Attending Physician: Georgina Lawler MD History of Present Illness 63-year-old female presents emergency department with right upper quadrant discomfort. Reports sudden onset of sharp, stabbing discomfort involving her right upper quadrant and right lower chest region. Discomfort occurred at rest without associated shortness of breath, diaphoresis, or radiation. She came to the ER for further evaluation and treatment. Currently reporting chest discomfort on deep inhalation and cough. Denies any sputum production. CTA of the chest demonstrating bilateral groundglass opacities possible right lower lobe infiltrate. No evidence of pulmonary embolus or dissection. Hypoxia noted on admission requiring 3 L nasal cannula. Patient reports infant grandson with significant upper respiratory tract infection recently. Denies orthopnea, PND, weight gain, or worsening edema. Reports occasional lower extremity edema involving her right ankle. Allergies Allergy/AdvReac Type Severity Reaction Status Date / Time lisinopril AdvReac Mild dry cough Verified 01/31/23 07:41 Home Medications Medication Instructions Recorded Confirmed Type Rohan Mag Zinc Plus D3 1 tab PO DAILY 03/14/24 03/14/24 History L.acidoph-L.rhamn-B.bifidum-B.long 1 tab PO DAILY 03/14/24 03/14/24 History 12.9 mg (2 billion cell) DR olu bupropion HCl 300 mg 24 hr tablet, 300 mg PO DAILY 03/14/24 03/14/24 History extended release carvedilol 3.125 mg tablet 3.125 mg PO BID 03/14/24 03/14/24 History hydrochlorothiazide 12.5 mg capsule 12.5 mg PO DAILY 03/14/24 03/14/24 History levothyroxine 50 mcg tablet 50 mcg PO DAILY 03/14/24 03/14/24 History losartan 100 mg tablet 100 mg PO DAILY 03/14/24 03/14/24 History oxybutynin chloride 10 mg 10 mg PO DAILY 03/14/24 03/14/24 History tablet,extended release 24 hr Patient History Medical History Hypothyroidism Irregular heartbeat "an extra heartbeat" reason for carvedilol Hypertension Temporomandibular joint disorder BILAT CLICKS HAS NEVER LOCKED Varicose vein of leg with laser surgery treatment Depression with anxiety Urinary incontinence H/O urinary tract infection about twice yearly. no recent problems Rheumatic fever FOURTH GRADE-NO HEART ISSUES Arthritis Anemia History of endometrial biopsy Surgical History Hx of cataract extraction History of surgery on extremity BILAT LOWER LEGS-VEIN SURGERY History of colonoscopy H/O arthroscopic knee surgery RIGHT H/O wisdom tooth extraction History of salpingectomy For ectopic H/O dilation and curettage Family History Mother Family history of diabetes mellitus Grandmother (Paternal) Family history of diabetes mellitus Aunt Family history of diabetes mellitus Uncle Family history of diabetes mellitus Sister FHx: ovarian cancer, Onset Age: 53 Other Depression Diabetes Hypertension Myocardial infarction Denies family history of Ovarian cancer Prostate cancer Breast cancer Colorectal cancer Uterine cancer Social History Smoking Status: Former smoker Second Hand Exposure: No; Do You Dip or Chew Tobacco: No; Tobacco Cessation Education Requested by Patient: No Hx Alcohol Use: No Hx Substance Use: No Preferred Language: [place] Island[place] Communication Ability: Effective Fruit Thinner Required: No Beliefs That Will Affect Care: None Current Living Situation: Spouse Other Information That Helps Us Care for You: No Feels Safe at Home: Yes Safety Concerns: Feels Safe At This Time Assistive Devices: Glasses Review of Systems Review of Systems: All systems reviewed & are unremarkable except as noted in Subjective Physical Exam Constitutional: well nourished and + ill appearing; no acute distress Respiratory: normal respiratory effort; no respiratory distress, no labored breathing and no retractions Auscultation: + crackles (dry crackles at bases B/L); no rales, no rhonchi and no wheezes Cardiovascular: Rate/Rhythm: regular rate and regular rhythm Heart Sounds: normal S1 and normal S2; no murmur Vessels: radial pulses present; no JVD and no carotid bruit Extremities: no edema Gastrointestinal (Abdomen): Inspection/Auscultation: abdomen normal to inspection, + abdomen distended and normal bowel sounds Percussion/Palpation: abdomen soft; abdomen nontender, no guarding and abdomen not rigid Neurologic: CN's II-XI intact bilaterally and moves all extremities Results & Data Vital Signs (Past 12 Hours) Vital Signs Temp Pulse Pulse Pulse Resp BP BP 03/14/24 08:00 36.4 C L 61 20 125/77 03/14/24 06:11 03/14/24 05:46 36.7 C 68 20 156/73 H 03/14/24 05:06 66 24 127/60 03/14/24 04:30 73 22 111/64 03/14/24 04:00 70 21 119/65 03/14/24 03:34 71 03/14/24 03:34 03/14/24 03:30 72 16 130/69 03/14/24 03:09 70 18 131/75 03/14/24 02:27 85 24 136/73 03/14/24 01:06 70 29 H 123/74 03/13/24 23:35 151/82 H 03/13/24 23:33 74 03/13/24 23:27 03/13/24 23:21 36.6 C 81 16 150/87 H 03/13/24 23:20 Pulse Ox O2 Del Method O2 Flow Rate 03/14/24 08:00 96 Room Air 03/14/24 06:11 Nasal Cannula 3 03/14/24 05:46 96 Nasal Cannula 3 03/14/24 05:06 92 Nasal Cannula 3 03/14/24 04:30 91 Nasal Cannula 3 03/14/24 04:00 90 Nasal Cannula 3 03/14/24 03:34 03/14/24 03:34 86 L Room Air, Nasal Cannula 03/14/24 03:30 90 Room Air 03/14/24 03:09 94 Room Air 03/14/24 02:27 93 03/14/24 01:06 03/13/24 23:35 03/13/24 23:33 03/13/24 23:27 Room Air 03/13/24 23:21 94 Room Air 03/13/24 23:20 Room Air Laboratory Results Cardiac Enzymes 03/13/24 03/14/24 03/14/24 Range/Units 23:42 02:22 06:49 AST 24 (13-39) U/L Troponin I High Sens 4.6 5.3 10.1 D (0-14) pg/ml CBC 03/13/24 03/14/24 Range/Units 23:42 06:49 WBC 8.43 7.22 (4.8-10.8) K/ul RBC 4.66 4.15 L (4.20-5.40) M/uL Hgb 13.8 12.3 (12.0-16.0) g/dl Hct 41.3 38.1 (37.0-47.0) % Plt Count 192 150 (130-400) K/uL Neut # (Auto) 6.63 H 5.26 (1.40-6.50) K/uL Lymph # (Auto) 0.87 L 1.02 L (1.20-3.40) K/uL [place] # (Auto) 0.81 H 0.88 H (0.11-0.59) K/uL Eos # (Auto) 0.05 0.01 (0.00-0.50) K/uL Baso # (Auto) 0.03 0.02 (0.00-0.20) K/uL Comprehensive Metabolic Panel 03/13/24 03/14/24 Range/Units 23:42 06:49 Sodium 137 138 (136-145) mmol/L Potassium 4.0 4.1 (3.5-5.1) mmol/L Chloride 102 103 (98-107) mmol/L Carbon Dioxide 27 31 (21-32) mmol/L BUN 24 H 21 (6-23) mg/dl Creatinine 0.97 0.92 (0.6-1.2) mg/dl Glucose 121 H 123 H (70-99(Fasting)) mg/dl Calcium 9.4 8.4 L (8.6-10.3) mg/dl AST 24 (13-39) U/L ALT 27 (7-52) U/L Alkaline Phosphatase 63 (34-104) U/L Total Protein 7.4 (6.0-8.3) gm/dl Albumin 4.5 (3.4-5.0) gm/dl Intake and Output 03/13/24 03/14/24 03/14/24 22:59 06:59 14:59 Intake Total 50 / 50 854.167 / 854.167 Balance 50 / 50 854.167 / 854.167 Intake: IV 50 / 50 854.167 / 854.167 Sodium Chloride 0.9% 1,000 ml @ 854.167 / 854.167 125 mls/hr IV .Q8H COOKIE Rx#: [id number] cefTRIAXone SODIUM 2,000 mg In 50 / 50 50 ml @ 100 mls/hr IV NOW STA Rx#:[id number] Oral 0 / 0 Other: Weight 97.522 kg Weight Measurement Method Stated by Patient Diagnostic Findings Stress (Exercise) ECHO 05/01/22 The stress echo is negative for inducible ischemia. The stress EKG response showed no evidence of ischemia. Occasional isolated premature ventricular contractions were observed on the stress EKG as well as several ventricular couplets and one 3 beat run of nonsustained ventricular tachycardia. The exercise test was terminated due to fatigue and shortness of breath. No chest discomfort was reported. The exercise capacity is below average with patient completing 4 minutes 43 seconds on a Corey protocol. No significant valvular heart disease was observed on the resting study. CTA chest report 03/14/2024: No evidence of pulmonary embolism Mild dilatation of pulmonary trunk ,bilateral main pulmonary artery up to subsegmental level with mild tortuosity - suggest possibility of pulmonary arterial hypertension. Mild diffuse ground-glass haze with superimposed smooth interlobular septal thickening are noted involving the dependent portion of both lower lobes- possibility of pulmonary congestion / could be due to insufficient inspiration. Mild right sided pleural effusion with passive subsegmental collapse of right lower lobe. Small calcified granuloma is noted in lingula. ECG Additional Comments: ECG: Normal sinus rhythm, low voltage. (1) Pneumonia Laterality: bilateral Lung location: lower lobe of lung Pneumonia type: due to unspecified organism Qualified Code(s): J18.9 - Pneumonia, unspecified organism
--- NOTE | 2024-03-14 11:47 | Hospitalist Progress Note ---
Date of Service March 14, 2024 Assessment & Plan (1) Chest pain: Plan: 63-year-old female with past med history significant for hypothyroidism, sleep apnea, hypertension, PVCs, obesity, overactive bladder, osteoarthritis, demyelinating disease of central nervous system, meningioma, depression who presented with sudden onset of chest pain. Acute hypoxic respiratory failure Upper Respiratory Tract Infection Chest pain Hypoxia requiring 3liters oxygen 3 sets of troponin negative. EKG unremarkable Echo Respiratory BioFire negative Chest XR suggestive of bronchitis CTA chest: No PE but also noted "Mild right sided pleural effusion with passive supplemental collapse of the right lower lobe." Empirically started on Rocephin and p.o. azithromycin, continue Follow-up procalcitonin levels Cardiology consulted, appreciate recs CHINMAY On CPAP nightly Hypertension On Coreg's, losartan hydrochlorothiazide PVCs On Coreg Hypothyroidism On Synthroid Overactive bladder On oxybutynin Diet: Heart healthy DVT prophylaxis: SCDs for now Disposition: Home once medically stable Admission and Anticipated Discharge Date Admission Date: March 14, 2024 Subjective patient was seen in the a.m. Laying in bed Noted that her chest pain had improved but still requiring oxygen Otherwise denying acute concerns Review of Systems Review of Systems: All systems reviewed & are unremarkable except as noted in Subjective Physical Exam Physical Exam: General: Alert, oriented. No acute distress Skin: No noted rashes or bruises Psych: Appropriate mood and affect HEENT: NC/AT Chest: Nontender to palpation. CV: RRR Resp: Breath sounds clear bilaterally, no increased effort of breathing Abdomen: Soft, nontender Extremities: No edema in lower extremities bilaterally. Results & Data Results & Data Vital Signs (Past 12 Hours) Vital Signs Temp Pulse Pulse Pulse Resp BP BP 03/14/24 10:21 62 03/14/24 08:00 36.4 C L 61 20 125/77 03/14/24 06:11 03/14/24 05:46 36.7 C 68 20 156/73 H 03/14/24 05:06 66 24 127/60 03/14/24 04:30 73 22 111/64 03/14/24 04:00 70 21 119/65 03/14/24 03:34 71 03/14/24 03:34 03/14/24 03:30 72 16 130/69 03/14/24 03:09 70 18 131/75 03/14/24 02:27 85 24 136/73 03/14/24 01:06 70 29 H 123/74 Pulse Ox O2 Del Method O2 Flow Rate 03/14/24 10:21 03/14/24 08:00 96 Room Air 03/14/24 06:11 Nasal Cannula 3 03/14/24 05:46 96 Nasal Cannula 3 03/14/24 05:06 92 Nasal Cannula 3 03/14/24 04:30 91 Nasal Cannula 3 03/14/24 04:00 90 Nasal Cannula 3 03/14/24 03:34 03/14/24 03:34 86 L Room Air, Nasal Cannula 03/14/24 03:30 90 Room Air 03/14/24 03:09 94 Room Air 03/14/24 02:27 93 03/14/24 01:06 Diagnostic Findings Chest X-Ray 03/13/24 23:27 Exam(s): XR CXR 1 VIEW EXAM: XR Chest, 1 View CLINICAL HISTORY: Reason for exam: Chest pain, nonspecific. TECHNIQUE: Frontal view of the chest. COMPARISON: Prior chest x-ray from July 24, 2017. FINDINGS: Lungs: There is mild to moderate peribronchial thickening of the central bronchi with increased interstitial opacities. No consolidation. There are low lung volumes limiting evaluation of the lung bases. There is a 10 mm granuloma in the left lower lobe. Pleural space: Unremarkable. No pneumothorax. Heart: Unremarkable. No cardiomegaly. Mediastinum: Unremarkable. Normal mediastinal contour. Bones/joints: Unremarkable. No acute fracture. IMPRESSION: Findings concerning bronchitis, which may be of infectious or inflammatory allergies. No consolidation or pleural effusion. Limited evaluation of the lung bases. Electronically signed by: Donna Harry MD 03/14/24 01:46 AM Gallbladder Ultrasound 03/13/24 23:39 EXAM: US gallbladder CLINICAL HISTORY: HX: NO PREV. RUQ PAIN. NAUSEA. TECH NOTES: EXAM LIMITED BY INCREASED MIDLINE BOWEL GAS, MOST OF EVAL INTERCOSTAL. PANC: NONVIS DUE TO OVERLYING BOWEL. LIVER: 15.8 cm. WNL SEEN. GB: WALL 1.6 mm. WNL SEEN. PT MEDICATED FOR PAIN, UNABLE TO ASSESS SANDOVAL''S SIGN. CBD: 3.8 mm. RT KID: NO HYDRO. TECHNIQUE: Limited ultrasound of the liver and gallbladder was performed in greyscale and Doppler. Multiple images were obtained in transverse and longitudinal planes. COMPARISON: No prior studies are available for comparison. FINDINGS: Liver: Liver size: 15.8 cm in length. Within normal limits as seen. The liver appears normal in size with homogeneous echotexture. No evidence of focal lesions, cysts, or masses. Hepatic vasculature appears normal. Gallbladder: Gallbladder wall thickness: 1.6 mm, within normal limits as seen. The gallbladder is visualized and appears normal in size and shape. No gallstones, wall thickening, or pericholecystic fluid noted. Unable to assess Sandoval's sign as the patient was medicated for pain. Biliary Tree: Common bile duct diameter: 3.8 mm, within normal limits and not dilated. No evidence of choledocholithiasis or biliary obstruction. Pancreas: Not visualized due to overlying bowel gas. Right Kidney: No evidence of hydronephrosis. IMPRESSION: No evidence of cholelithiasis or cholecystitis. Electronically signed by Melisa Oglesby 03-14-2024 02:45 AM Chest CTA 03/14/24 01:12 EXAM: CT angio chest PE protocol CLINICAL HISTORY: PE 118 CC OPTI 320 TECHNIQUE: Contiguous axial images were obtained from the neck base through the upper abdomen following intravenous administration of iodinated contrast material. Angiographic images were processed, 3D MIP images were acquired for interpretation. If IV contrast material had not been administered, the likelihood of detecting abnormalities relevant to the patient's condition would have been substantially decreased. Coronal and sagittal 3-D MIPs were likewise performed and indicated to increase the sensitivity of detectin diffuse clinically relevant pathology. CT scan was performed according to ALARA (as low as reasonable achievable). COMPARISON: None. FINDINGS: Mild dilatation of pulmonary trunk ,bilateral main pulmonary artery up to subsegmental level with mild tortuosity - suggest possibility of pulmonary arterial hypertension. Mild diffuse ground-glass haze with superimposed smooth interlobular septal thickening are noted involving the dependent portion of both lower lobes- possibility of pulmonary congestion / could be due to insufficient inspiration. Mild right sided pleural effusion with passive subsegmental collapse of right lower lobe. Small calcified granuloma is noted in lingula Adequate contrast bolus without evidence of pulmonary embolism. The central airways are patent. The heart, aorta, and pulmonary arteries are of normal size and configuration. There are no appreciable coronary artery and aortic atherosclerotic calcifications. No pericardial effusion is identified. The thyroid is unremarkable. No mediastinal, hilar, or axillary lymphadenopathy is noted. No suspicious lytic or sclerotic osseous lesions are identified. IMPRESSION: No evidence of pulmonary embolism Mild dilatation of pulmonary trunk ,bilateral main pulmonary artery up to subsegmental level with mild tortuosity - suggest possibility of pulmonary arterial hypertension. Mild diffuse ground-glass haze with superimposed smooth interlobular septal thickening are noted involving the dependent portion of both lower lobes- possibility of pulmonary congestion / could be due to insufficient inspiration. Mild right sided pleural effusion with passive subsegmental collapse of right lower lobe. Small calcified granuloma is noted in lingula. Electronically signed by Elan Cloud 03-14-2024 02:15 AM
--- NOTE | 2024-03-14 17:27 | Electrocardiogram Report ---
Test Reason : Blood Pressure : */* mmHG Vent. Rate : 72 BPM Atrial Rate : 72 BPM P-R Int : 116 ms QRS Dur : 86 ms QT Int : 394 ms P-R-T Axes : 4 24 32 degrees QTcB Int : 431 ms Normal sinus rhythm Low voltage QRS Borderline ECG When compared with ECG of 03-Jan-2017 09:56, Nonspecific T wave abnormality now evident in Anterolateral leads Confirmed by Carlos Chávez ([id number]) on 03/14/2024 5:27:16 PM Referred By: REFERRED SELF Confirmed By: Carlos Chávez
[2024-03-14] MEDS: cefTRIAXone SODIUM 2,000 MG/50 ML BAG IV SCH (22:31)
[2024-03-15 07:16] LABS: Basophils # (auto) 0.01 K/uL (0.00-0.20); Basophils % (auto) 0.2 %; Eosinophils # (auto) 0.04 K/uL (0.00-0.50); Eosinophils % (auto) 0.6 %; Hematocrit (blood only) 36.8 % (37.0-47.0); Hemoglobin 12.4 g/dl (12.0-16.0); Immature Granulocytes # (auto) 0.03 K/uL (0.01-0.20); Immature Granulocytes % (auto) 0.5 %; Lymphocytes # (auto) 0.99 K/uL (1.20-3.40); Mean Corpuscular Hemoglobin 30.1 pg (25.0-34.0); Mean Corpuscular Hgb Conc 33.7 g/dL (32.0-36.0); Mean Corpuscular Volume 89.3 fL (80.0-100.0); Mean Platelet Volume 10.7 fL (9.4-12.4); Monocytes # (auto) 0.73 K/uL (0.11-0.59); Monocytes % (auto) 11.8 %; Neutrophils # (auto) 4.37 K/uL (1.40-6.50); Neutrophils % (auto) 70.9 %; Platelet Count 142 K/uL (130-400); RDW Coefficient of Variation 14.3 % (11.5-14.5); RDW Standard Deviation 46.4 fL (36.4-46.3); Red Blood Count 4.12 M/uL (4.20-5.40); White Blood Count 6.17 K/ul (4.8-10.8)
[2024-03-15 07:23] VITALS: BP 151/79; TEMP 99.1
[2024-03-15 07:49] LABS: BUN Creatinine Ratio 15.9 (10-20); Calcium 8.7 mg/dl (8.6-10.3); Magnesium 1.8 mg/dl (1.7-2.4); Phosphorus 2.9 mg/dl (2.5-4.9); Potassium 3.9 mmol/L (3.5-5.1)
[2024-03-15] MEDS: AZITHROMYCIN 250 MG TAB PO SCH (08:45)
--- NOTE | 2024-03-15 09:41 | Pulmonary Consultation ---
Date of Consultation March 15, 2024 Assessment & Plan (1) Pleural effusion on right: (2) Atelectasis: Plan Impression: 63-year-old female presenting with complaints of right-sided chest pain. This is resolved. As part of her workup she had a CT scan performed which revealed some basilar atelectasis as well as a trivial right pleural effusion. She is asymptomatic. Recommendations: 1. Pleural effusion: Effusion is too small to consider tapping. May represent viral etiology. No workup needed for this. She does not need to remain in the hospital for this. Would not recommend follow-up imaging unless the patient should have persistent respiratory symptoms referable to a pleural effusion. 2. Basilar atelectasis/patchy airspace opacity: She is afebrile. Her white count is normal. Procalcitonin undetectable. She has been initiated on antibiotics in the form of Rocephin and azithromycin. Will place on Ceftin for 5 days and complete 5 days of oral azithromycin. Patient is on room air currently. No indication for additional hospitalization from a pulmonary standpoint at this point in time. The patient can be dismissed from the hospital and follow-up with her primary care provider. Thanks for the opportunity participate in the care of this patient. Feel free to contact us with questions or concerns. History of Present Illness Attending Physician: Georgina Lawler MD History of Present Illness Asked by hospitalist to assist patient management this patient with a abnormal CT scan. History is obtained from discussion with the patient as well as review of electronic medical record. Patient is a 63-year-old obese non-smoking female who developed some right-sided chest discomfort which felt like a muscle ache. This is been going on for about 24 hours and she sought care in the emergency room. She was admitted to the hospital. She had a CT angiogram done to exclude PE. Radiologist read a trivial amount of pleural fluid on the right with some basilar atelectasis which prompted a pulmonary consultation. Patient is on room air currently. She is having no respiratory complaints. She does have a mild occasional cough with deep breathing. She denies fevers chills night sweats or other constitutional symptoms. Patient states that she was exposed to an upper respiratory illness through her grandson a few days ago. Allergies Allergy/AdvReac Type Severity Reaction Status Date / Time lisinopril AdvReac Mild dry cough Verified 01/31/23 07:41 Home Medications Medication Instructions Recorded Confirmed Type Rohan Mag Zinc Plus D3 1 tab PO DAILY 03/14/24 03/14/24 History L.acidoph-L.rhamn-B.bifidum-B.long 1 tab PO DAILY 03/14/24 03/14/24 History 12.9 mg (2 billion cell) tabletDR bupropion HCl 300 mg 24 hr tablet, 300 mg PO DAILY 03/14/24 03/14/24 History extended release carvedilol 3.125 mg tablet 3.125 mg PO BID 03/14/24 03/14/24 History hydrochlorothiazide 12.5 mg capsule 12.5 mg PO DAILY 03/14/24 03/14/24 History levothyroxine 50 mcg tablet 50 mcg PO DAILY 03/14/24 03/14/24 History losartan 100 mg tablet 100 mg PO DAILY 03/14/24 03/14/24 History oxybutynin chloride 10 mg 10 mg PO DAILY 03/14/24 03/14/24 History tablet,extended release 24 hr Patient History Medical History Hypothyroidism Irregular heartbeat "an extra heartbeat" reason for carvedilol Hypertension Temporomandibular joint disorder BILAT CLICKS HAS NEVER LOCKED Varicose vein of leg with laser surgery treatment Depression with anxiety Urinary incontinence H/O urinary tract infection about twice yearly. no recent problems Rheumatic fever FOURTH GRADE-NO HEART ISSUES Arthritis Anemia History of endometrial biopsy Surgical History Hx of cataract extraction History of surgery on extremity BILAT LOWER LEGS-VEIN SURGERY History of colonoscopy H/O arthroscopic knee surgery RIGHT H/O wisdom tooth extraction History of salpingectomy For ectopic H/O dilation and curettage Family History Mother Family history of diabetes mellitus Grandmother (Paternal) Family history of diabetes mellitus Aunt Family history of diabetes mellitus Uncle Family history of diabetes mellitus Sister FHx: ovarian cancer, Onset Age: 53 Other Depression Diabetes Hypertension Myocardial infarction Denies family history of Ovarian cancer Prostate cancer Breast cancer Colorectal cancer Uterine cancer Social History Smoking Status: Former smoker Second Hand Exposure: No; Do You Dip or Chew Tobacco: No; Tobacco Cessation Education Requested by Patient: No Hx Alcohol Use: No Hx Substance Use: No Preferred Language: Albanian Communication Ability: Effective 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 No additions or deletions Physical Exam Constitutional: WD/WN, vitals as above Neck: trachea midline, no thyromegaly Respiratory: normal respiratory effort, lungs clear to auscultation Cardiovascular: RRR, no murmur, no edema Gastrointestinal (Abdomen): normal bowel sounds, soft, nontender, no hepatosplenomegaly Musculoskeletal: Extremities: extremities normal to inspection Skin: no rashes, warm and dry Neurologic: Nonfocal exam Lymphatic: no cervical lymphadenopathy Results & Data Results & Data Vital Signs (Past 12 Hours) Vital Signs Temp Pulse Pulse Pulse Resp BP Pulse Ox 03/15/24 08:54 92 03/15/24 07:25 75 03/15/24 07:22 37.3 C 81 16 151/79 H 93 03/15/24 03:17 79 22 93 03/15/24 03:03 36.6 C 78 18 134/80 94 03/14/24 23:00 83 03/14/24 22:40 37.6 C H 78 18 142/84 H 95 03/14/24 22:25 83 12 95 03/14/24 21:45 O2 Del Method O2 Flow Rate 03/15/24 08:54 Room Air 03/15/24 07:25 03/15/24 07:22 Nasal Cannula 2 03/15/24 03:17 2 03/15/24 03:03 BiPAP 03/14/24 23:00 03/14/24 22:40 BiPAP 03/14/24 22:25 2 03/14/24 21:45 Room Air, BiPAP Critical Care Results & Data Vital Signs (Past 12 Hours) Vital Signs Temp Pulse Pulse Pulse Resp BP Pulse Ox 03/15/24 08:54 92 03/15/24 07:25 75 03/15/24 07:22 37.3 C 81 16 151/79 H 93 03/15/24 03:17 79 22 93 03/15/24 03:03 36.6 C 78 18 134/80 94 03/14/24 23:00 83 03/14/24 22:40 37.6 C H 78 18 142/84 H 95 03/14/24 22:25 83 12 95 03/14/24 21:45 O2 Del Method O2 Flow Rate 03/15/24 08:54 Room Air 03/15/24 07:25 03/15/24 07:22 Nasal Cannula 2 03/15/24 03:17 2 03/15/24 03:03 BiPAP 03/14/24 23:00 03/14/24 22:40 BiPAP 03/14/24 22:25 2 03/14/24 21:45 Room Air, BiPAP Lab & Micro Results (Past 24 Hours) RBC 4.12 M/uL (4.20-5.40) L 03/15/24 WBC 6.17 K/ul (4.8-10.8) 03/15/24 Hgb 12.4 g/dl (12.0-16.0) 03/15/24 Hct 36.8 % (37.0-47.0) L 03/15/24 MCV 89.3 fL (80.0-100.0) 03/15/24 MCH 30.1 pg (25.0-34.0) 03/15/24 MCHC 33.7 g/dL (32.0-36.0) 03/15/24 RDW Standard Deviation 46.4 fL (36.4-46.3) H 03/15/24 RDW Coefficient of Variation 14.3 % (11.5-14.5) 03/15/24 Plt Count 142 K/uL (130-400) 03/15/24 MPV 10.7 fL (9.4-12.4) 03/15/24 Neutrophils (%) (Auto) 70.9 % 03/15/24 Lymphocytes (%) (Auto) 16.0 % 03/15/24 Monocytes # (Auto) 0.73 K/uL (0.11-0.59) H 03/15/24 Eosinophils # (Auto) 0.04 K/uL (0.00-0.50) 03/15/24 Immature Granulocyte % (Auto) 0.5 % 03/15/24 Neutrophils # (Auto) 4.37 K/uL (1.40-6.50) 03/15/24 Lymphocytes # (Auto) 0.99 K/uL (1.20-3.40) L 03/15/24 Monocytes # (Auto) 0.73 K/uL (0.11-0.59) H 03/15/24 Eosinophils # (Auto) 0.04 K/uL (0.00-0.50) 03/15/24 Basophils # (Auto) 0.01 K/uL (0.00-0.20) 03/15/24 Immature Granulocyte # (Auto) 0.03 K/uL (0.01-0.20) 5 Na 139 mmol/L (136-145) 03/15/24 K 3.9 mmol/L (3.5-5.1) 03/15/24 Cl 103 mmol/L (98-107) 03/15/24 CO2 28 mmol/L (21-32) 03/15/24 Anion Gap 8 (3-11) 03/15/24 BUN 14 mg/dl (6-23) 03/15/24 Creatinine 0.88 mg/dl (0.6-1.2) 03/15/24 BUN/Creatinine Ratio 15.9 (10-20) 03/15/24 Glu 99 mg/dl (70-99(Fasting)) 03/15/24 Ca 8.7 mg/dl (8.6-10.3) 03/15/24 Phosphorus Level 2.9 mg/dl (2.5-4.9) 03/15/24 Mg 1.8 mg/dl (1.7-2.4) 03/15/24 06:19 Calcium Level 8.7 mg/dl (8.6-10.3) 03/15/24 06:19 I & O Totals 24 Hours 03/14/24 03/15/24 03/16/24 06:59 06:59 06:59 Intake Total 1344.167 / 1344.167 Balance 1344.167 / 1344.167 Cumulative 03/13/24 23:19 thru 03/15/24 06:00 Intake Total 1394.167 Balance 1394.167 RT Ventilator Mngmt (Last Documented) Ventilator Ordered Settings Respiratory Rate 16 03/15/24 07:22 Ventilator - PT Measurements Respiratory Rate 16 PG Care Time/CCT Total # of Minutes Spent Total Time Spent with Patient: Total time spent is greater than 50% in coordination of care (as documented) at patient's floor/unit and/or counseling patient: Coding Level of Care Code 20194 IN/OBS CONSULT LVL 3,45M Diagnoses Pleural effusion on right J90 Atelectasis J98.11
--- NOTE | 2024-03-15 11:40 | Hospitalist Progress Note ---
Date of Service March 15, 2024 Assessment & Plan (1) Chest pain: Plan: 63-year-old female with past med history significant for hypothyroidism, sleep apnea, hypertension, PVCs, obesity, overactive bladder, osteoarthritis, demyelinating disease of central nervous system, meningioma, depression who presented with sudden onset of chest pain. Acute hypoxic respiratory failure Upper Respiratory Tract Infection Chest pain Hypoxia requiring 3liters oxygen 3 sets of troponin negative. EKG unremarkable Echo Respiratory BioFire negative Chest XR suggestive of bronchitis CTA chest: No PE but also noted "Mild right sided pleural effusion with passive supplemental collapse of the right lower lobe." Empirically started on Rocephin and p.o. azithromycin, continue Follow-up procalcitonin levels Cardiology consulted, appreciate recs CHINMAY On CPAP nightly Hypertension On Coreg's, losartan hydrochlorothiazide PVCs On Coreg Hypothyroidism On Synthroid Overactive bladder On oxybutynin Diet: Heart healthy DVT prophylaxis: SCDs for now Disposition: Home once medically stable Admission and Anticipated Discharge Date Admission Date: March 14, 2024 Physical Exam Physical Exam: General: Alert, oriented. No acute distress Skin: No noted rashes or bruises Psych: Appropriate mood and affect HEENT: NC/AT Chest: Nontender to palpation. CV: RRR Resp: Breath sounds clear bilaterally, no increased effort of breathing Abdomen: Soft, nontender Extremities: No edema in lower extremities bilaterally. Results & Data Results & Data Vital Signs (Past 12 Hours) Vital Signs Temp Pulse Pulse Pulse Resp BP Pulse Ox 03/15/24 08:54 92 03/15/24 07:25 75 03/15/24 07:22 37.3 C 81 16 151/79 H 93 03/15/24 03:17 79 22 93 03/15/24 03:03 36.6 C 78 18 134/80 94 O2 Del Method O2 Flow Rate 03/15/24 08:54 Room Air 03/15/24 07:25 03/15/24 07:22 Nasal Cannula 2 03/15/24 03:17 2 03/15/24 03:03 BiPAP
--- NOTE | 2024-03-15 11:42 | Discharge Summary ---
Discharge Summary Date of Service March 15, 2024 Principal Dx & Hospital Course #1 = Principal Diagnosis (1) Chest pain: Plan 63-year-old female with past med history significant for hypothyroidism, sleep apnea, hypertension, PVCs, obesity, overactive bladder, osteoarthritis, demyelinating disease of central nervous system, meningioma, depression who presented with sudden onset of chest pain. Acute hypoxic respiratory failure Pleural Effusion Upper Respiratory Tract Infection Bronchitis Chest pain Pt presented with hypoxia requiring 3L of oxygen Three sets of troponin negative. EKG unremarkable Echo noting EF of 60 to 65%, mild tricuspid regurgitation, normal left ventricular function, no pulmonary hypertension Respiratory BioFire negative Chest XR suggestive of bronchitis CTA chest: No PE but also noted "Mild right sided pleural effusion with passive supplemental collapse of the right lower lobe." procalcitonin negative Treated with Rocephin and p.o. azithromycin Cardiology consulted for the chest pain, recommended/stated the following per Dr Davonte Acosta: "63-year-old female present to the emergency department with atypical right- sided chest discomfort. ECG unremarkable. High-sensitivity troponins within normal limits. Findings do not suggest acute coronary syndrome.." Pulmonology was consulted, recommended/stated the following on the day of aida dominguez per Dr Leyva: "1. Pleural effusion: Effusion is too small to consider tapping. May represent viral etiology. No workup needed for this. She does not need to remain in the hospital for this. Would not recommend follow-up imaging unless the patient should have persistent respiratory symptoms referable to a pleural effusion. 2. Basilar atelectasis/patchy airspace opacity: She is afebrile. Her white count is normal. Procalcitonin undetectable. She has been initiated on antibiotics in the form of Rocephin and azithromycin. Will place on Ceftin for 5 days and complete 5 days of oral azithromycin. Patient is on room air currently. No indication for additional hospitalization from a pulmonary standpoint at this point in time. The patient can be dismissed from the hospital and follow-up with her primary care provider." On the day of discharge patient was on room air while at rest. She did have two-step completed which noted no need for oxygen at rest but she would need 2 L with ambulation. Case management contacted to arrange oxygen for home use. Patient was also discharged with 3 additional days of p.o. azithromycin as well as 5 days of p.o. Ceftin per pulmonology recs. please ensure close follow-up after discharge and ensure resolution of patient's symptoms. Consider pulmonology follow-up after discharge For further evaluation. CHINMAY On CPAP nightly, continue Hypertension On Coreg's, losartan hydrochlorothiazide, continue PVCs On Coreg, continue Hypothyroidism On Synthroid, continue Overactive bladder On oxybutynin, continue Notes For Next Care Provider Please ensure follow-up and ensure resolution of symptoms Please consider follow-up with pulmonology for further evaluation and testing. Patient discharged with 2 L of oxygen for home use while ambulating Medication Changes From Visit Per pulmonology: azithromycin 250 mg daily for 3 additional days Ceftin 500 mg twice daily for 5 days Admission HPI Per Admitting Provider 63-year-old female with past med history significant for hypothyroidism, sleep apnea, hypertension, PVCs, obesity, overactive bladder, osteoarthritis, demyelinating disease of central nervous system, meningioma, depression presents with sudden onset of chest pain. Patient states she was watching TV when she noticed sharp pain in the middle of the chest radiating across the right side of the chest into the back. Pain is on and off. Was nauseous. Denies any fevers. No cough. No sweating. Has some dizziness. No headache, no runny nose. No sore throat. No earache. No abdominal pain. Normal bowel and bladder movement s. Patient states she is around the grandchild who has been sick with respiratory and stomach flu. In the ER patient was saturating 86% on room air and requiring 3 L oxygen Past medical history as mentioned above Past surgical history. Colonoscopy. Ectopic . Social history. . Former smoker. Socially smoker in 2 years. Alcohol occasionally. No drug use. Family history. Father had depression. Hypertension. Mother had diabetes. Heart failure. Hypertension. Sister had ovarian cancer. History of hypertension. Maternal grandfather had heart attack. Paternal grandfather had heart failure. Admission Exam Per Admitting Provider General- Not in distress Head- atraumatic Eyes- PERRL. ENT- oropharynx clear Neck- supple, no JVD, Lungs- clear to auscultation mild bibasilar crackles, no wheezing Heart- regular rate and rhythm; no murmur, no gallop. Abdomen- normal bowel sounds, soft, nontender, no distension Extremities- no pretibial edema, no erythema seen Neuro- alert, oriented PERRL, no facial palsy; no dysarthria; moves extremities Discharge Exam General: Alert, oriented. No acute distress Skin: No noted rashes or bruises Psych: Appropriate mood and affect HEENT: NC/AT Chest: Nontender to palpation. CV: RRR Resp: Breath sounds clear bilaterally, no increased effort of breathing Abdomen: Soft, nontender Extremities: No edema in lower extremities bilaterally. Updated Medication List Medication Instructions Recorded Confirmed Type Rohan Mag Zinc Plus D3 1 tab PO DAILY 03/14/24 03/14/24 History L.acidoph-L.rhamn-B.bifidum-B.long 1 tab PO DAILY 03/14/24 03/14/24 History 12.9 mg (2 billion cell) tabletDR bupropion HCl 300 mg 24 hr tablet, 300 mg PO DAILY 03/14/24 03/14/24 History extended release carvedilol 3.125 mg tablet 3.125 mg PO BID 03/14/24 03/14/24 History hydrochlorothiazide 12.5 mg capsule 12.5 mg PO DAILY 03/14/24 03/14/24 History levothyroxine 50 mcg tablet 50 mcg PO DAILY 03/14/24 03/14/24 History losartan 100 mg tablet 100 mg PO DAILY 03/14/24 03/14/24 History oxybutynin chloride 10 mg 10 mg PO DAILY 03/14/24 03/14/24 History tablet,extended release 24 hr azithromycin 250 mg tablet 250 mg PO QAM #3 tabs 03/15/24 Rx cefuroxime axetil 250 mg tablet 500 mg (2 x 250 mg) PO BID #20 tabs 03/15/24 Rx Hospital Stay Data Consultations 03/14/24 08:00 Consult Cardiology Routine 03/15/24 08:30 Consult Pulmonology Routine Diagnostic Imagining Performed 03/13/24 23:39 US gallbladder Stat 03/14/24 01:12 CT angio chest PE protocol Stat Chest X-Ray 03/13/24 23:27 Exam(s): XR CXR 1 VIEW EXAM: XR Chest, 1 View CLINICAL HISTORY: Reason for exam: Chest pain, nonspecific. TECHNIQUE: Frontal view of the chest. COMPARISON: Prior chest x-ray from July 24, 2017. FINDINGS: Lungs: There is mild to moderate peribronchial thickening of the central bronchi with increased interstitial opacities. No consolidation. There are low lung volumes limiting evaluation of the lung bases. There is a 10 mm granuloma in the left lower lobe. Pleural space: Unremarkable. No pneumothorax. Heart: Unremarkable. No cardiomegaly. Mediastinum: Unremarkable. Normal mediastinal contour. Bones/joints: Unremarkable. No acute fracture. IMPRESSION: Findings concerning bronchitis, which may be of infectious or inflammatory allergies. No consolidation or pleural effusion. Limited evaluation of the lung bases. Electronically signed by: Donna Harry MD 03/14/24 01:46 AM Gallbladder Ultrasound 03/13/24 23:39 EXAM: US gallbladder CLINICAL HISTORY: HX: NO PREV. RUQ PAIN. NAUSEA. TECH NOTES: EXAM LIMITED BY INCREASED MIDLINE BOWEL GAS, MOST OF EVAL INTERCOSTAL. PANC: NONVIS DUE TO OVERLYING BOWEL. LIVER: 15.8 cm. WNL SEEN. GB: WALL 1.6 mm. WNL SEEN. PT MEDICATED FOR PAIN, UNABLE TO ASSESS SANDOVAL''S SIGN. CBD: 3.8 mm. RT KID: NO HYDRO. TECHNIQUE: Limited ultrasound of the liver and gallbladder was performed in greyscale and Doppler. Multiple images were obtained in transverse and longitudinal planes. COMPARISON: No prior studies are available for comparison. FINDINGS: Liver: Liver size: 15.8 cm in length. Within normal limits as seen. The liver appears normal in size with homogeneous echotexture. No evidence of focal lesions, cysts, or masses. Hepatic vasculature appears normal. Gallbladder: Gallbladder wall thickness: 1.6 mm, within normal limits as seen. The gallbladder is visualized and appears normal in size and shape. No gallstones, wall thickening, or pericholecystic fluid noted. Unable to assess Sandoval's sign as the patient was medicated for pain. Biliary Tree: Common bile duct diameter: 3.8 mm, within normal limits and not dilated. No evidence of choledocholithiasis or biliary obstruction. Pancreas: Not visualized due to overlying bowel gas. Right Kidney: No evidence of hydronephrosis. IMPRESSION: No evidence of cholelithiasis or cholecystitis. Electronically signed by Melisa Oglesby 03-14-2024 02:45 AM Chest CTA 03/14/24 01:12 EXAM: CT angio chest PE protocol CLINICAL HISTORY: PE 118 CC OPTI 320 TECHNIQUE: Contiguous axial images were obtained from the neck base through the upper abdomen following intravenous administration of iodinated contrast material. Angiographic images were processed, 3D MIP images were acquired for interpretation. If IV contrast material had not been administered, the likelihood of detecting abnormalities relevant to the patient's condition would have been substantially decreased. Coronal and sagittal 3-D MIPs were likewise performed and indicated to increase the sensitivity of detectin diffuse clinically relevant pathology. CT scan was performed according to ALARA (as low as reasonable achievable). COMPARISON: None. FINDINGS: Mild dilatation of pulmonary trunk ,bilateral main pulmonary artery up to subsegmental level with mild tortuosity - suggest possibility of pulmonary arterial hypertension. Mild diffuse ground-glass haze with superimposed smooth interlobular septal thickening are noted involving the dependent portion of both lower lobes- possibility of pulmonary congestion / could be due to insufficient inspiration. Mild right sided pleural effusion with passive subsegmental collapse of right lower lobe. Small calcified granuloma is noted in lingula Adequate contrast bolus without evidence of pulmonary embolism. The central airways are patent. The heart, aorta, and pulmonary arteries are of normal size and configuration. There are no appreciable coronary artery and aortic atherosclerotic calcifications. No pericardial effusion is identified. The thyroid is unremarkable. No mediastinal, hilar, or axillary lymphadenopathy is noted. No suspicious lytic or sclerotic osseous lesions are identified. IMPRESSION: No evidence of pulmonary embolism Mild dilatation of pulmonary trunk ,bilateral main pulmonary artery up to subsegmental level with mild tortuosity - suggest possibility of pulmonary arterial hypertension. Mild diffuse ground-glass haze with superimposed smooth interlobular septal thickening are noted involving the dependent portion of both lower lobes- possibility of pulmonary congestion / could be due to insufficient inspiration. Mild right sided pleural effusion with passive subsegmental collapse of right lower lobe. Small calcified granuloma is noted in lingula. Electronically signed by Elan Cloud 03-14-2024 02:15 AM Discharge Instructions Given to Patient (Per Discharging Provider) [place], He was admitted and treated for a presumed bronchitis picture. You were seen by the specialty sales representative who ruled out a cardiac cause of your chest pain. You are also seen by the banquet chef who recommends that you continue with 5 days of the antibiotic Ceftin and continue treatment with azithromycin as well to finish a course of 5 days. You required oxygen supplementation while you were in the hospital. You had testing done which noted that you did not need oxygen while at rest but you required 2 L with ambulation. It is anticipated that as you get better from your acute illness, your need for oxygen will improve and you will eventually no longer need it. Please keep close follow up with your primary care provider after discharge. Please do not hesitate to come back to the emergency room if your symptoms worsen or return. It was a pleasure taking care of you while you were here. Total Time Total Time Spent Total Time Spent (In Minutes): 65
[2024-03-15 14:41] VITALS: PULSE 81; RESP 16; O2SAT 92
[2024-03-15] MEDS ORDERED: cefUROXime axetil 500 MG TAB PO SCH (21:00)
[2024-03-15] MEDS ORDERED: cefUROXime axetil 250 MG TABLET PO SCH (21:00)
--- NOTE | 2024-03-17 21:45 | Electrocardiogram Report ---
Test Reason : Blood Pressure : */* mmHG Vent. Rate : 75 BPM Atrial Rate : 75 BPM P-R Int : 130 ms QRS Dur : 92 ms QT Int : 398 ms P-R-T Axes : -1 24 18 degrees QTcB Int : 444 ms Normal sinus rhythm Low voltage QRS Borderline ECG When compared with ECG of 13-Mar-2024 23:31, No significant change Confirmed by Trino Mccord ([id number]) on 03/17/2024 9:44:48 PM Referred By: REFERRED SELF Confirmed By: Trino Mccord
--- NOTE | 2024-03-18 18:42 | Coding Query ---
CODING QUERY To promote full compliance with coding requirements relating to patient care, provider participation is requested in all cases of job change crew member uncertainty. Please assist us with the question(s) below: Coding Question(s): Pt presented with hypoxia requiring 3L of oxygen Three sets of troponin negative. EKG unremarkable Echo noting EF of 60 to 65%, mild tricuspid regurgitation, normal left ventricular function, no pulmonary hypertension Respiratory BioFire negative No respiratory distress Physician's Response(s): __x_ Acute hypoxic respiratory failure ___ Hypoxia only Thank you Eduarda THOMPSON
== END 2024-03-15 17:14 | disposition home or self-care (01) | DRG 193 ==
LOC: ED 23:19 → 2S 03-14 04:50